=== PATIENT | female | born 1940 | race Two or more races ===

== ENCOUNTER 2024-04-13 11:59 | Inpatient (IN) | payer MEDICAID, SELFPAY ==
[2024-04-13] VITALS (7 sets, daily range): BP systolic 75–164; BP diastolic 38–71; PULSE 72–89; RESP 17–21; TEMP 36.7–37.2; O2SAT 94–98; BMI 31.1
--- NOTE | 2024-04-13 12:26 | XR_ITS ---
Examination: Abdomen sonogram, Limited Date and time of exam: April 13, 2024 1259 hrs. Indications: Onset right upper abdominal pain today, history pancreatitis Technique: Real-time baig scale transabdominal sonographic images of the upper abdomen obtained. Findings: Absent gallbladder Common bile duct 0.7 cm no stones Pancreatic head prominent 3.6 cm Liver 15.2 cm fatty infiltration lobular contour Normal hepatopedal portal venous flow Patent IVC Impression: Absent gallbladder No common bile duct stones Pancreatic head is prominent, clinical correlation advised Primary hepatocellular disease
--- NOTE | 2024-04-13 12:42 | PD.EDABDPN ---
ED Abdominal Pain RME/HPI General Chief Complaint: Abdominal Pain Stated complaint: RUQ ABD PAIN SINCE THIS MORNING Time seen by provider: 04/13/24 12:17 Arrival date/time: 04/13/24 11:59 RME / HPI RME / HPI narrative: 83-year-old female patient with significant history of diabetes mellitus hypertension, was brought in by family for evaluation regarding upper abdominal pain. Onset of symptoms since early this morning as upper abdominal pain, associated with dizziness, nausea but no vomiting. Patient denies any fever denies any diarrhea or constipation. Severity of symptoms moderate. In the triage patient was noted to be hypotensive, systolic blood pressure in the mid 80s. No other complaints noted. Related Data Home Medications ?Medication ?Instructions ?Recorded ?Confirmed metformin 500 mg tablet 500 mg PO BID 08/08/17 10/09/23 atorvastatin 10 mg tablet 10 mg PO QPM 11/10/20 10/09/23 metoprolol succinate 25 mg 25 mg PO BID 06/13/23 10/09/23 tablet,extended release 24 hr apixaban 5 mg tablet (Eliquis) 5 mg PO BID 06/20/23 10/09/23 Previous Rx's ?Medication ?Instructions ?Recorded cephalexin 500 mg capsule 500 mg PO QID #56 caps 10/13/23 Allergies Allergy/AdvReac Type Severity Reaction Status Date / Time No Known Allergies Allergy Verified 04/13/24 12:10 Review of Systems Review of Systems Narrative Review of Systems: Review of system reviewed and within normal limits except mentioned in HPI ED Exam Narrative Physical exam: VITAL SIGNS: Reviewed. GENERAL APPEARANCE: Alert and interactive, follows commands, no acute distress, HEAD AND FACE: Non-traumatic. ENT: PERRL, pink conjunctivitis, eyelid no trauma, Mucous membrane moist. NECK: Supple, nontender, no nuchal rigidity. CHEST: No tenderness, no crepitus, no paradoxical movement, no retractions. LUNGS: Clear, well ventilated, symmetric, no rales, no wheezing, no ronchi, no stridor, good breath sounds bilaterally. HEART: Regular rate, regular rhythm, no murmur, no gallops. ABDOMEN: Soft, positive bowel sounds, nondistended, no guarding, epigastric tenderness, no rebound, no masses, RECTAL: Deferred. GENITAL: Deferred. NEUROLOGICAL: Gross motor function intact sensory function intact, Appropriate for age. MUSCULOSKELETAL: low back nontender, full range of motion. EXTREMITIES: Nontender, full range of motion. SKIN: Color pink, dry, no rash, no lacerations, no abrasions, no contusions. LYMPHATICS: Deferred. Course Quality Measures none Orders Category Date Time Status CT Screening NOW Care 04/13/24 14:24 Active Supervisor Electronics Testing NOW Care 04/13/24 12:26 Active EKG (ED ONLY) *Do not use* NOW Care 04/13/24 12:[address] abdomen pelvis w con Stat Exams 04/13/24 14:23 Completed EKG (ED Only) Stat Exams 04/13/24 12:26 Ordered US gall bladder Stat Exams 04/13/24 12:26 Completed Blood Culture (Lab) Stat Lab 04/13/24 12:47 Received CBC Stat Lab 04/13/24 12:47 Completed Comprehensive Metabolic Panel Stat Lab 04/13/24 12:47 Completed Lactic Acid [Lactate (Lactic Acid)] Stat Lab 04/13/24 12:47 Completed Lactic Acid, 3 HR Stat Lab 04/13/24 16:21 Received Lipase Stat Lab 04/13/24 12:47 Completed Lipid Panel Stat Lab 04/13/24 12:47 Completed Procalcitonin Stat Lab 04/13/24 12:47 Completed Troponin I Stat Lab 04/13/24 12:47 Completed UA, C/S IF [Urinalysis, C/S if Indicated] Stat Lab 04/13/24 13:27 Completed Famotidine Inj [Pepcid Inj] Med 04/13/24 12:41 Discontinued 20 mg IVP X1 ONE Morphine Inj Med 04/13/24 14:55 Discontinued 4 mg IVP X1 ONE Morphine Inj [Morphine Sulf Inj] Med 04/13/24 14:27 Discontinued 4 mg IVP X1 ONE Ondansetron Inj [Zofran Inj] Med 04/13/24 12:41 Discontinued 4 mg IV X1 ONE Ondansetron Inj [Zofran Inj] Med 04/13/24 14:26 Discontinued 4 mg IV X1 ONE Sodium Chloride 0.9% 1000 ml [Ns] 1,000 ml Med 04/13/24 12:27 Discontinued IV 500 mls/hr Vital Signs Vital signs: Vital Signs Temperature 98.9 F 04/13/24 12:23 Pulse Rate 72 04/13/24 12:23 Respiratory Rate 17 04/13/24 12:23 Blood Pressure 87/50 L 04/13/24 12:23 Pulse Oximetry (%) 96 04/13/24 12:23 Oxygen Delivery Method Room Air 04/13/24 12:23 Abdominal Pain MDM MDM Narrative [facility] Narrative:: 83-year-old female patient with significant history of diabetes mellitus hypertension, was brought in by family for evaluation regarding upper abdominal pain. Onset of symptoms since early this morning as upper abdominal pain, associated with dizziness, nausea but no vomiting. Patient denies any fever denies any diarrhea or constipation. Severity of symptoms moderate. In the triage patient was noted to be hypotensive, systolic blood pressure in the mid 80s. No other complaints noted. Lipase was noted to be more than 3500, slight leukocytosis was noted also LFTs are slightly elevated. Total lipid was normal. CT scan of the abdomen and pelvis showed acute pancreatitis, no pseudocyst noted. Received IV fluids, morphine and Zofran. Was also given Pepcid. Patient is to be admitted for further management. Patient data External records reviewed:: None Clinical information provided by:: patient and family Social determinants that could affect healthcare access:: none Patient has the following chronic illnesses:: Diabetes hypertension How is presenting disease/condition affected by chronic disease/condition?: uneffected by Evaluation data The following diagnostics were reviewed and interpreted by me:: lab results, radiology exam(s) and EKG tracing(s) Lab and/or radiology exams considered but not ordered:: None Interpretation Summary: EKG as interpreted by me showed sinus rhythm, ventricular rate of 67 bpm, per interval 148 MS, no ST segment elevation depression noted. CT scan of the abdomen showed acute pancreatitis no pseudocyst noted, lipase was noted to be above 3500. Slight elevated LFTs total bili is normal. Lipid panel unremarkable. Medications / Prescriptions Medications or Prescriptions considered but not ordered:: none Medication administrations:: Medication Administration History Discontinued Medications Famotidine (Famotidine Inj 10 Mg/Ml Vial 2 Ml) 20 mg IVP X1 ONE Stop: 04/13/24 12:42 Last Admin: 04/13/24 13:15 Dose: 20 mg Documented By: ARF Sodium Chloride (Ns) 1,000 mls @ 500 mls/hr IV .Q2H ONE Stop: 04/13/24 14:26 Morphine Sulfate (Morphine Sulf Inj 4 Mg/Ml Vial) 4 mg IVP X1 ONE Stop: 04/13/24 14:28 Last Admin: 04/13/24 14:55 Dose: Not Given Documented By: LF Non-Admin Reason: Duplicate Medication on eMAR Morphine Sulfate (Morphine Sulf Inj 10 Mg/Ml Vial) 4 mg IVP X1 ONE Stop: 04/13/24 14:56 Last Admin: 04/13/24 15:01 Dose: 4 mg Documented By: LF Ondansetron HCl (Ondansetron Inj 2 Mg/Ml Inj 2 Ml) 4 mg IV X1 ONE; Protocol Stop: 04/13/24 12:42 Last Admin: 04/13/24 13:15 Dose: 4 mg Documented By: ARF Ondansetron HCl (Ondansetron Inj 2 Mg/Ml Inj 2 Ml) 4 mg IV X1 ONE; Protocol Stop: 04/13/24 14:27 Zofran, morphine, IV fluids hydration and Pepcid Consultations Consultation(s) initiated? (list below): No Diagnosis Differential diagnosis abdominal pain: abdominal pain and pancreatitis Most likely diagnosis given after review of the tests above:: Acute pancreatitis Admission Indicated Admission indicated?: indicated Explain why admission is indicated or not indicated:: Patient is to be admitted for further management. Admission Request Was there a request for admission?: Yes Admission Attestation Admission request attestation: Discussed case with [[facility] resident] from Hospitalist service regarding admission. Discussed patients ED course, exam findings, labs, and radiology results. The Hospitalist [agrees] to accept the patient for admission. Disposition Plan Disposition Plan: Admit Discharge Plan Plan Patient Disposition: Admit Acute Care w/in Hospital Prescriptions/Referrals Prescriptions/Med Rec: No Action metoprolol succinate 25 mg tablet extended release 24 hr 25 mg PO BID metformin 500 mg Tablet 500 mg PO BID atorvastatin 10 mg Tablet 10 mg PO QPM cephalexin 500 mg capsule 500 mg PO QID Qty: 56 0RF Eliquis 5 mg Tablet 5 mg PO BID Referrals: Juan Banegas MD [Primary Care Provider] - In 1 week Problem List Clinical Impression: Acute pancreatitis Patient/Caregiver Discharge Instructions Print Language: Kiswahili Stand Alone Forms: [facility] Award Info., Patient Portal Info Letter
[2024-04-13] MEDS: SODIUM CHLORIDE 0.9% 1000 ML 1,000 ML 500 ML IV (12:44)
[2024-04-13 13:13] LABS: Lactate (Lactic Acid) 3.7 mMol/L (0.4-2.0)
[2024-04-13] MEDS: FAMOTIDINE INJ 10 MG/ML VIAL 2 ML 20 MG IVP (13:15)
[2024-04-13] MEDS: ONDANSETRON INJ 2 MG/ML INJ 2 ML 4 MG IV (13:15)
[2024-04-13 13:28] LABS: Basophils % (Auto) 0 % (0-2.5); Eosinophils % (Auto) 0 % (0-10); Hematocrit 39.3 % (36.0-46.0); Hemoglobin 13.7 g/dL (12.0-16.0); Immature Granulocytes % (Auto) 0 % (0-0); Immature Granulocytes Auto 0.06 Thou/mm3 (0.00-0.00); Lymphocytes # (Auto) 1.6 Thou/mm3 (1.0-4.8); Lymphocytes % (Auto) 12 % (10-50); Mean Corpuscular HGB Conc 34.9 g/dl (31.0-37.0); Mean Corpuscular Hemoglobin 31.2 pg (25.0-35.0); Mean Corpuscular Volume 90 fL (80-100); Monocytes # (Auto) 0.7 Thou/mm3 (0.0-0.8); Monocytes % (Auto) 5 % (0-12); Neutrophils # (Auto) 11.6 Thou/mm3 (1.8-7.7); Neutrophils % (Auto) 82 % (37-80); Nucleated Red Blood Cell % 0 /100 WBC (0); Platelet Count 279 Thou/mm3 (140-440); RDW Standard Deviation 43.9 fL (36.4-46.3); Red Blood Count 4.39 Miln/mm3 (4.00-5.20); White Blood Count 14.1 Thou/mm3 (3.6-11.0)
[2024-04-13 14:02] LABS: Collection Type, Urine Clean Catch
[2024-04-13 14:08] LABS: Bilirubin,Urine Negative (Negative); Blood,Urine Negative (Negative); Clarity,Urine Clear (Clear/Hazy); Color,Urine Lt-Yellow (Lt Yel-Yel); Culture Indicated,Urine Not Indicated; Glucose, Urine Negative (Negative); Ketones,Urine Negative (Negative); Leukocyte Esterase,Urine Negative (Negative); Nitrite,Urine Negative (Negative); Protein,Urine Negative (Neg - Trace); RBC,Urine 2 /hpf (0-3); Squamous Epithelial Cell,Urine 2 /hpf (0-5); Urobilinogen,Urine Negative mg/dL (0.0-1.0); WBC,Urine 2 /hpf (0-5)
[2024-04-13 14:13] LABS: Potassium 3.9 mMol/L (3.4-5.1); Sodium 137 mMol/L (136-145)
[2024-04-13 14:14] LABS: Anion Gap 11 (7-16); Blood Urea Nitrogen 17 mg/dL (9-23); Carbon Dioxide 23.8 mMol/L (20.0-31.0); Chloride 102 mMol/L (98-107)
[2024-04-13 14:15] LABS: Alanine Aminotransferase 129 U/L (10-49); Aspartate Amino Transferase 312 U/L (0-34); BUN/Creatinine Ratio 24 Ratio (12-20); Bilirubin,Total 1.1 mg/dL (0.3-1.2); Calcium 9.5 mg/dL (8.3-10.6); Creatinine (Component) 0.7 mg/dL (0.6-1.3); Estimated Creatinine Clearance 55.4 mL/min (>60); Glucose 172 mg/dL (74-106); Osmolality,Calculated 279 (275-295); eGFR > 60 See Note
[2024-04-13 14:16] LABS: Albumin, Serum 4.2 gm/dL (3.4-4.8); Albumin/Globulin Ratio 1.8 (1.2-2.2); Alkaline Phosphatase 168 U/L (46-116); Calcium (Corrected) 9.5 mg/dL (8.5-10.1); Globulin 2.3 gm/dL (2.3-3.5); Lipase > 3500 U/L (12-53); Procalcitonin 0.11 ng/ml (0.0-0.49); Total Protein 6.5 gm/dL (5.7-8.2); Troponin I < 0.020 ng/mL (0.0-0.045)
--- NOTE | 2024-04-13 14:23 | XR_ITS ---
Examination: CT abdomen with intravenous contrast CT pelvis with intravenous contrast 2-D coronal reconstructions 2-D sagittal reconstructions Date and time of exam:April 13, 2024 1517 hrs. Indications: Right upper abdominal pain with nausea today, diagnosis acute pancreatitis, acute pancreatitis on CT study October 11, 2023. CTDI: vol (mGy) 10.2 DLP: (mGycm) 547 Technique: Multiple axial sections of the abdomen and pelvis have been obtained. 64 slice high-resolution scanner used. 3 mm axial sections have been obtained, post intravenous injection 60 cc [id number] 2-D sagittal, coronal reconstructions obtained. Low dose protocols were performed. One or more of the following dose reduction techniques were used; automated exposure control, adjustment of the mA and/or KV according to patient size, use of iterative reconstruction technique. Findings: Mild enlargement cardiac contour Fatty infiltration throughout the liver Common bile duct 12 mm Acute pancreatitis No definite pseudocyst 5.7 cm left renal cyst Aorta normal size Distended urinary bladder No bowel obstruction No pelvic mass Moderate osteopenia Impression: Acute pancreatitis, no pseudocyst No common bile duct stones noted
[2024-04-13] MEDS: MORPHINE SULF INJ 10 MG/ML VIAL 4 MG IVP (15:01)
[2024-04-13 15:33] LABS: Cardiac Risk Estimate 3.8 RATIO (3.7-5.6); Cholesterol 180 mg/dL (132-200); HDL Cholesterol 47 mg/dL (40-60); LDL Cholesterol,Calculated 101 mg/dL (0-130); Triglycerides 162 mg/dL (30-150)
[2024-04-13 16:08] LABS: Reflex Lactate? Y
[2024-04-13 16:26] LABS: Lactic Acid, 3 HR 2.4 mMol/L (0.4-2.0)
--- NOTE | 2024-04-13 18:25 | ESHP_ITS ---
<Statement entered by Arlen Ochoa MD - 04/14/24 07:31> Patient is a 83 y.o female with PMHx significant for non-insulin dependent type 2 DM, HTN, HLD, A-fib on Eliquis, pancreatitis with pseudocyst presented to the with abdominal pain and admitted for further management of pancreatitis. Patient denies any hx of EtoH use, and labs show low TG level. Patient will be started on IVF at 100cc/hr NS, pain regimen, and NPO. Will advance diet after n/v and pain improve. Will resume PO meds tomorrow. F/u A1c in AM. I discussed with and supervised the public health internship physician who took care of this patient. I personally saw and examined the patient and discussed the assessment and plan with the entire medicine team, including my attending , I agree with most of the assessment and plan as documented below Arlen Ochoa M.D. PGY-2 Documentation for date of: 04/13/24 HPI History of Present Illness Chief complaint: Abdominal pain History of present illness: 83-year-old female with past medical history of hwe-wopjbkw-uzabpnfvz type 2 diabetes, hypertension, hyperlipidemia, A-fib on Eliquis pancreatitis with pseudocyst presents to the ED on 04/13 with abdominal pain which started this morning. Patient states that the pain is mostly in the epigastric area and does not really radiate anywhere else. Patient states that she has some nausea but has not had any vomiting and denies any other concerning symptoms such as hematemesis, melena, hematochezia. Patient does state that she does get dizzy from time to time especially when she moves her head; however, she denies having any chest pain/tightness, orthopnea, paroxysmal nocturnal dyspnea, lower extremity edema or any palpitations. Patient has been admitted in the past for pancreatitis and treated with IV fluids and pain management. Patient apparently follows a risk and insurance consultant in [place], but does not remember the risk and insurance consultant name and she is only been to 1 visit in the past. Medical history: As stated above Surgical history: 1 and left hip replacement Medications: Metformin 700 mg p.o. daily, Toprol tartrate 25 mg p.o. twice daily, Eliquis 5 mg p.o. twice daily Allergies: NKDA Family history: noncontributable Social history: Patient lives with her in [place], originally from [facility], denies smoking, alcohol use or any illicit drug use In the ED, patient presented hypotensive (87/50), pulse 72, respiratory rate 17, afebrile satting 96 on room air. Pertinent lab findings include WBC of 14.1, lactic acid 3.7, elevated liver enzymes (AST 312, ALT 129, alk phos 168), troponin was unremarkable, triglycerides 162, cholesterol 180, LDL 101, HDL 47, lipase was greater then 3500 and Pro-Dean was 0.11. Urinalysis was negative for any signs of infection. Ultrasound of the gallbladder showed an absent gallbladder, no common bile duct stones, a prominent pancreatic head and primary hepatocellular disease. CT abdomen pelvis showed acute pancreatitis with no pseudocyst, a common bile duct measuring 12 mm and a 5.7 cm left renal cyst Patient will be admitted for acute pancreatitis of unspecified etiology; patient has history of pancreatitis in the past which is not attributable to gallstones, triglyceride levels or alcohol use Exam Vital Signs Temp Pulse Resp BP Pulse Ox O2 Del Method 98.2 F 89 19 121/59 L 94 L Room Air 04/13/24 18:00 04/13/24 18:00 04/13/24 18:00 04/13/24 18:00 04/13/24 18:00 04/13/24 18:00 Narrative Exam Physical Exam: GENERAL: Awake, answering questions appropriately, appears stated age HEENT: NC/AT. Moist mucosa. PERRLA/EOMI. CARDIO: Heart RRR, no obvious murmurs, no JVD. PULM: No coughing or visible SOB. Lungs CTA B/L. GI: Abdomen soft, tenderness to palpation in epigastric and right upper quadrant areas, no rebound tenderness, no rigidity, borborygmi apparent borborygmi apparent SKIN/MSK/EXT: No wounds/discoloration/rashes/edema/amputations noted. +Pedal pulses present B/L. NEURO: Oriented x3, director utilization management strength 5/5, Moves extremities x4. Results: Labs 04/13/24 12:47 04/13/24 12:47 Labs: Short CBC 04/13/24 Range/Units 12:47 WBC 14.1 H (3.6-11.0) Thou/mm3 Hgb 13.7 (12.0-16.0) g/dL Hct 39.3 (36.0-46.0) % Plt Count 279 (140-440) Thou/mm3 BMP 04/13/24 12:47 Sodium 137 Potassium 3.9 Chloride 102 Carbon Dioxide 23.8 BUN 17 Creatinine 0.7 Glucose 172 H Calcium 9.5 Cardiac Enzymes 04/13/24 Range/Units 12:47 Troponin I < 0.020 (0.0-0.045) ng/mL Liver Function 04/13/24 Range/Units 12:47 Total Bilirubin 1.1 (0.3-1.2) mg/dL AST 312 H (0-34) U/L ALT 129 H (10-49) U/L Alkaline Phosphatase 168 H (46-116) U/L Albumin 4.2 (3.4-4.8) gm/dL Urine 04/13/24 Range/Units 13:27 Urine Color Lt-Yellow (Lt Yel-Yel) Urine Clarity Clear (Clear/Hazy) Urine pH 7.0 (5.0-7.0) Ur Specific [place] 1.010 (1.001-1.035) Urine Protein Negative (Neg - Trace) Urine Glucose (UA) Negative (Negative) Quality Measures Quality Measures none Advance care planning discussed with:: patient Medications Home Medications and Allergies Home Medications ?Medication ?Instructions ?Recorded ?Confirmed ?Type metformin 500 mg tablet 500 mg PO BID 08/08/17 10/09/23 History atorvastatin 10 mg tablet 10 mg PO QPM 11/10/20 10/09/23 History metoprolol succinate 25 mg 25 mg PO BID 06/13/23 10/09/23 History tablet,extended release 24 hr apixaban 5 mg tablet (Eliquis) 5 mg PO BID 06/20/23 10/09/23 History Allergies Allergy/AdvReac Type Severity Reaction Status Date / Time No Known Allergies Allergy Verified 04/13/24 12:10 Visit Medications Acetaminophen (Acetaminophen 325 Mg Tablet) 650 mg PO Q6H PRN PRN Reason: Pain 1-3 and/or Fever >100.1 Stop: 05/13/24 18:15 Hydrocodone Bitart/Acetaminophen (Hydrocodone/Apap 10/325 Tab) 1 tab PO Q4H PRN PRN Reason: Pain Scale 4-6 Stop: 04/18/24 18:15 Dextrose (Dextrose 50%-Water Inj 50 Ml Syringe) 25 ml IV Q15MIN PRN PRN Reason: BG 50-70 responsive npo pt Stop: 05/13/24 18:22 Dextrose (Dextrose 50%-Water Inj 50 Ml Syringe) 50 ml IV Q15MIN PRN PRN Reason: BG <50 OR BG <70 & pt unresponsive Stop: 05/13/24 18:22 Glucagon (Glucagon Inj 1 Mg Vial) 1 mg IM Q15MIN PRN PRN Reason: BG <70, and no IV access Heparin Sodium (Porcine) (Heparin Sod Inj 5000 Unit/Ml Vial) 5,000 unit SC Q12HR [facility] Stop: 04/27/24 20:59 Sodium Chloride (Ns) 1,000 mls @ 100 mls/hr IV .Q10H [facility] Stop: 04/14/24 04:24 Insulin Human Lispro (Insulin Lispro (Admelog) 1 Unit/0.01 Ml Unit) 0 unit SC Q6HR [facility]; Protocol Stop: 05/13/24 18:29 Morphine Sulfate (Morphine Sulf Inj 10 Mg/Ml Vial) 1 mg IVP Q4HR PRN PRN Reason: Pain Scale 7-10 Stop: 04/18/24 18:15 Ondansetron HCl (Ondansetron Inj 2 Mg/Ml Inj 2 Ml) 4 mg IV Q6H PRN; Protocol PRN Reason: NAUSEA OR VOMITING Stop: 05/13/24 18:15 Sennosides (Senna Tablet) 1 tab PO QDAY [facility]; Protocol Stop: 05/14/24 08:59 Discontinued Medications Famotidine (Famotidine Inj 10 Mg/Ml Vial 2 Ml) 20 mg IVP X1 ONE Stop: 04/13/24 12:42 Last Admin: 04/13/24 13:15 Dose: 20 mg Sodium Chloride (Ns) 1,000 mls @ 500 mls/hr IV .Q2H ONE Stop: 04/13/24 14:26 Morphine Sulfate (Morphine Sulf Inj 4 Mg/Ml Vial) 4 mg IVP X1 ONE Stop: 04/13/24 14:28 Last Admin: 04/13/24 14:55 Dose: Not Given Morphine Sulfate (Morphine Sulf Inj 10 Mg/Ml Vial) 4 mg IVP X1 ONE Stop: 04/13/24 14:56 Last Admin: 04/13/24 15:01 Dose: 4 mg Morphine Sulfate (Morphine Sulf Inj 4 Mg/Ml Vial) 1 mg IVP Q4HR PRN PRN Reason: Pain Scale 7-10 Stop: 04/18/24 18:15 Ondansetron HCl (Ondansetron Inj 2 Mg/Ml Inj 2 Ml) 4 mg IV X1 ONE; Protocol Stop: 04/13/24 12:42 Last Admin: 04/13/24 13:15 Dose: 4 mg Ondansetron HCl (Ondansetron Inj 2 Mg/Ml Inj 2 Ml) 4 mg IV X1 ONE; Protocol Stop: 04/13/24 14:27 Assessment & Plan Plan 83-year-old female with past medical history of uxx-fqfcsyg-cjrnerexs type 2 diabetes, hypertension, hyperlipidemia, A-fib on Eliquis pancreatitis with pseudocyst presents with abdominal pain will be admitted for acute pancreatitis of unspecified etiology; patient has history of pancreatitis in the past which is not attributable to gallstones, triglyceride levels or alcohol use #Acute pancreatitis #Elevated liver enzymes #Lactic acidosis, improving Patient has history of pancreatitis in the past with a pseudocyst Presents today with acute abdominal pain with Lipase >3500, characteristic pain and CT findings Plan: 100cc/hr IV NS Multimodal analgesia (tylenol, norco 5 and morphine 1mg q4hr) depending on pain scale NPO for now Will advance as tolerated IV Zofran as needed every 4 hours for nausea #A-fib Patient apparently on Eliquis 5mg po BID for AFIB and/or clot in leg? Patient follows a risk and insurance consultant in [place]; only one visit in the past Plan: Will hold Eliquis for now as patient is NPO; plan is to resume tomorrow (04/14) morning Will do heparin subq for DVT prophylaxis EKG ordered #Hypertension #Hypotensive, resolved Patient on home metoprolol tartrate 25mg po bid Plan: Will hold antihypertensives as patient's BP on softer side #Abx-imudgke-uowdgydlz type 2 diabetes Patient on home metformin 750 mg p.o. daily Plan: Sliding scale insulin Follow-up with AM A1c #Hyperlipidemia Patient presents with triglycerides 162, cholesterol 180, LDL 101, HDL 47 LDL above target of <70; however, patient is 83 and past the age limit for ASCVD risk score Plan: Will consider adding statin on discharge Hospital Management: Lines: PIV Diet: N.p.o. Bowel: Senna as needed GI prophylaxis: Protonix DVT prophylaxis: Heparin subcu Dispo: IV fluid and pain management for acute pancreatitis Code: DNR Patient seen and examined with attending Dr. Leos and senior resident Dr. Don Sanchez, PGY-1 Attending Provider Attestation/Addendum I have examined the patient, reviewed labs and imaging findings, discussed the case with the resident(s), and reviewed entered orders. I agree with the plan of care as outlined in this note, with these additional summaries/recommendations: # Acute on chronic pancreatitis Meets 3 out of 3 diagnostic criteria Unknown etiology possibly secondary to alcohol versus medications versus idiopathic Moderately severe acute pancreatitis BISAP Score: 2 points Raj-Imrie pancreatitis score: 2 points Low risk for severe pancreatitis Given patient's age we will proceed with lower dose fluids for acute pancreatitis. Status post 1 L NS in ED. Start NS 100 cc x 1 L and will reevaluate As needed morphine and Zofran Oral feeding can be initiated early as tolerated Prophylactic antibiotics are not recommended at this time unless patient develops fevers or evidence of abscess/necrosis # Transaminitis Total bilirubin within normal limits, AST 312, ALT 129, ALP 168 Likely related to severe pancreatitis Avoid hepatotoxic agents and hepatically dose medications Repeat liver function test in AM # Lactic acidosis Likely type B lactic acidosis from decreased oral intake and transaminitis Lactic acid 3.7 --> 2.4 Continue maintenance fluids # Paroxysmal atrial fibrillation # Primary hypertension Rate currently controlled Blood pressure is soft and we will hold metoprolol for now Continue home Eliquis 5 mg p.o. twice daily # Diabetes mellitus type 2 Last A1c on file 7.1%. The Repeat A1c ordered. Continue insulin sliding scale with Accu-Cheks Target blood sugar of 140-[address] Leos
[2024-04-13] MEDS: SODIUM CHLORIDE 0.9% 1000 ML 1,000 ML 100 ML IV (18:58)
[2024-04-13] MEDS: HEPARIN SOD INJ 5000 UNIT/ML VIAL SC (21:02)
[2024-04-14] VITALS (10 sets, daily range): BP systolic 118–154; BP diastolic 60–94; PULSE 73–90; RESP 16–22; TEMP 36.4–37.4; O2SAT 94–99; BMI 31.1
[2024-04-14 05:47] LABS: Basophils % (Auto) 0 % (0-2.5); Eosinophils # (Auto) 0.1 Thou/mm3 (0.0-0.5); Eosinophils % (Auto) 1 % (0-10); Hematocrit 38.3 % (36.0-46.0); Immature Granulocytes % (Auto) 0 % (0-0); Immature Granulocytes Auto 0.05 Thou/mm3 (0.00-0.00); Lymphocytes # (Auto) 1.1 Thou/mm3 (1.0-4.8); Lymphocytes % (Auto) 9 % (10-50); Mean Corpuscular HGB Conc 33.9 g/dl (31.0-37.0); Mean Corpuscular Hemoglobin 30.2 pg (25.0-35.0); Mean Corpuscular Volume 89 fL (80-100); Monocytes # (Auto) 0.6 Thou/mm3 (0.0-0.8); Monocytes % (Auto) 5 % (0-12); Neutrophils # (Auto) 10.5 Thou/mm3 (1.8-7.7); Neutrophils % (Auto) 85 % (37-80); Nucleated Red Blood Cell % 0 /100 WBC (0); Platelet Count 266 Thou/mm3 (140-440); RDW Standard Deviation 45.1 fL (36.4-46.3); Red Blood Count 4.31 Miln/mm3 (4.00-5.20); White Blood Count 12.4 Thou/mm3 (3.6-11.0)
[2024-04-14 06:22] LABS: Alanine Aminotransferase 317 U/L (10-49); Albumin/Globulin Ratio 1.7 (1.2-2.2); Alkaline Phosphatase 205 U/L (46-116); Anion Gap 10 (7-16); Aspartate Amino Transferase 396 U/L (0-34); BUN/Creatinine Ratio 15 Ratio (12-20); Bilirubin,Total 2.5 mg/dL (0.3-1.2); Blood Urea Nitrogen 9 mg/dL (9-23); Calcium 8.9 mg/dL (8.3-10.6); Calcium (Corrected) 8.9 mg/dL (8.5-10.1); Carbon Dioxide 25.9 mMol/L (20.0-31.0); Chloride 105 mMol/L (98-107); Creatinine (Component) 0.6 mg/dL (0.6-1.3); Estimated Creatinine Clearance 64.6 mL/min (>60); Globulin 2.4 gm/dL (2.3-3.5); Glucose 123 mg/dL (74-106); Osmolality,Calculated 280 (275-295); Phosphorous 3.8 mg/dL (2.4-5.1); Potassium 3.7 mMol/L (3.4-5.1); Sodium 141 mMol/L (136-145); Total Protein 6.4 gm/dL (5.7-8.2); eGFR > 60 See Note
[2024-04-14 06:32] LABS: INR 1.1 (0.9-1.3); Prothrombin Time 12.1 Seconds (9.0-12.2)
[2024-04-14 06:47] LABS: Glucose Estimated Average 143 mg/dL (80-131); Hemoglobin A1C 6.6 % Hgb (4.8-6.0)
--- NOTE | 2024-04-14 07:32 | PC.NURSE ---
Pt. here from home to room 16, pt. states she was having abdominal pain and nausea, vomiting X 1 day. Pt. denies any pain, nausea or vomiting at this time. Pt.'s daughter at bedside. Daughter states pt. has had pancreatitis twice before. Pt. walks with a cane and lives at home with her .
[2024-04-14] MEDS: HEPARIN SOD INJ 5000 UNIT/ML VIAL SC ×2 (10:28→20:07)
--- NOTE | 2024-04-14 12:11 | ESPR_ITS ---
<Statement entered by Arlen Ochoa MD - 04/14/24 13:39> Patient seen and examined at bedside. No acute overnight events. Patient received a total of 1L, and will give another liter of NS at 100cc/hr. D/t elevated LFTs during AM labs, will order MRCP and Cocci panel. Patient's pain on PE is still present, but hasn't been asking for pain medications. Will try CLD today, and see how her pain is tolerated. Patient raised a concern for Metformin induced pancreatitis d/t recurrence of symptoms, however, reassured that medication adverse effect is very rare, but will discontinue at discharge. Patient's A1c is currently 6.6%. I discussed with and supervised the research intern physician who took care of this patient. I personally saw and examined the patient and discussed the assessment and plan with the entire medicine team, including my attending , I agree with most of the assessment and plan as documented below Arlen Ochoa M.D. PGY-2 Documentation for date of: 04/14/24 Subjective Subjective Interval history: 04/14/2024: No acute overnight events to report. Patient seen and examined in hospital bed reporting some improvement in her presenting symptoms; however, she still has some pain when palpating right upper quadrant and epigastric areas. Patient still remains n.p.o. but we will advance diet if she starts becoming hungry. Patient had 1 L of normal saline overnight which ended around 4 AM running at around 100 cc/h; will add an additional 1 L bag at 100 cc an hour. Patient's liver enzymes have increased along with T. bili which went up from 1.1-2.5; ordered MRCP and cocci serologies. Patient is wondering if metformin is the cause for her recurrent pancreatitis; explained to her that pancreatitis is a very rare adverse effect of metformin but we will consider changing diabetic medications on discharge. Exam Vital Signs Temp Pulse Resp BP Pulse Ox O2 Del Method O2 Flow Rate 99.2 F 80 20 118/94 H 94 L Nasal Cannula 2 04/14/24 09:40 04/14/24 09:40 04/14/24 09:40 04/14/24 09:40 04/14/24 09:40 04/14/24 09:40 04/14/24 09:40 Narrative Exam Physical Exam: GENERAL: Awake, answering questions appropriately, appears stated age HEENT: NC/AT. Moist mucosa. PERRLA/EOMI. CARDIO: Heart RRR, no obvious murmurs, no JVD. PULM: No coughing or visible SOB. Lungs CTA B/L. GI: Abdomen soft, tenderness to palpation in epigastric and right upper quadrant areas, no rebound tenderness, no rigidity, borborygmi apparent borborygmi apparent SKIN/MSK/EXT: No wounds/discoloration/rashes/edema/amputations noted. +Pedal pulses present B/L. NEURO: Oriented x3, powder guard strength 5/5, Moves extremities x4. Objective Labs 04/15/24 04:32 04/15/24 04:32 Labs: Laboratory Results - last 24 hr 04/13/24 04/13/24 04/13/24 12:47 13:27 16:21 WBC 14.1 H RBC 4.39 Hgb 13.7 Hct 39.3 MCV 90 MCH 31.2 MCHC 34.9 RDW Std Deviation 43.9 Plt Count 279 Neut % (Auto) 82 H Lymph % (Auto) 12 [place] % (Auto) 5 Eos % (Auto) 0 Baso % (Auto) 0 Neut # (Auto) 11.6 H Lymph # (Auto) 1.6 [place] # (Auto) 0.7 Eos # (Auto) 0.0 Baso # (Auto) 0.0 Immature Gran # (Auto) 0.06 H Absolute Nucleated RBC 0.00 Immature Gran % 0 Nucleated RBC % 0 PT INR Sodium 137 Potassium 3.9 Chloride 102 Carbon Dioxide 23.8 Anion Gap 11 BUN 17 Creatinine 0.7 Estim Creat Clear Calc 55.4 L eGFR > 60 BUN/Creatinine Ratio 24 H Glucose [address] Glu mg/dL Hemoglobin A1c Calculated Osmolality 279 Lactic Acid 3.7 H 2.4 H Calcium 9.5 Corrected Calcium 9.5 Phosphorus Magnesium Total Bilirubin 1.1 AST 312 H ALT 129 H Alkaline Phosphatase 168 H Troponin I < 0.020 Total Protein 6.5 Albumin 4.2 Globulin 2.3 Albumin/Globulin Ratio 1.8 Triglycerides 162 H Cholesterol 180 LDL Cholesterol, Calc 101 HDL Cholesterol 47 Cholesterol/HDL Ratio 3.8 Lipase > 3500 H* Procalcitonin 0.11 TSH Ur Collection Type Clean Catch Urine Color Lt-Yellow Urine Clarity Clear Urine pH 7.0 Ur Specific [place] 1.010 Urine Protein Negative Urine Glucose (UA) Negative Urine Ketones Negative Urine Blood Negative Urine Nitrite Negative Urine Bilirubin Negative Urine Urobilinogen (Auto) Negative Ur Leukocyte Esterase Negative Urine RBC 2 Urine WBC 2 Ur Squamous Epith Cells 2 Urine Bacteria None Ur Culture Indicated? Not Indicated 04/14/24 04/14/24 05:00 10:10 WBC 12.4 H RBC 4.31 Hgb 13.0 Hct 38.3 MCV 89 MCH 30.2 MCHC 33.9 RDW Std Deviation 45.1 Plt Count 266 Neut % (Auto) 85 H Lymph % (Auto) 9 L [place] % (Auto) 5 Eos % (Auto) 1 Baso % (Auto) 0 Neut # (Auto) 10.5 H Lymph # (Auto) 1.1 [place] # (Auto) 0.6 Eos # (Auto) 0.1 Baso # (Auto) 0.0 Immature Gran # (Auto) 0.05 H Absolute Nucleated RBC 0.00 Immature Gran % 0 Nucleated RBC % 0 PT 12.1 INR 1.1 Sodium 141 Potassium 3.7 Chloride 105 Carbon Dioxide 25.9 Anion Gap 10 BUN 9 Creatinine 0.6 Estim Creat Clear Calc 64.6 eGFR > 60 BUN/Creatinine Ratio [address] Glu mg/dL 143 H Hemoglobin A1c 6.6 H Calculated Osmolality 280 Lactic Acid 1.0 Calcium 8.9 Corrected Calcium 8.9 Phosphorus 3.8 Magnesium 2.0 Total Bilirubin 2.5 H D AST 396 H ALT 317 H Alkaline Phosphatase 205 H D Troponin I Total Protein 6.4 Albumin 4.0 Globulin 2.4 Albumin/Globulin Ratio 1.7 Triglycerides Cholesterol LDL Cholesterol, Calc HDL Cholesterol Cholesterol/HDL Ratio Lipase Procalcitonin TSH 3.70 Ur Collection Type Urine Color Urine Clarity Urine pH Ur Specific [place] Urine Protein Urine Glucose (UA) Urine Ketones Urine Blood Urine Nitrite Urine Bilirubin Urine Urobilinogen (Auto) Ur Leukocyte Esterase Urine RBC Urine WBC Ur Squamous Epith Cells Urine Bacteria Ur Culture Indicated? Quality Measures Quality Measures none Advance care planning discussed with:: patient Assessment & Plan Assessment Current Active Medications: Generic Name Dose Route Start Last Admin Trade Name Freq PRN Reason Stop Dose Admin Acetaminophen 650 mg 04/13/24 18:16 Acetaminophen 325 Mg Tablet PO 05/13/24 18:15 Q6H PRN Pain 1-3 and/or Fever >100.1 Hydrocodone Bitart/Acetaminophen 1 tab 11/23/24 18:16 Hydrocodone/Apap 10/325 Tab PO 04/18/24 18:15 Q4H PRN Pain Scale 4-6 Dextrose 25 ml 04/13/24 18:23 Dextrose 50%-Water Inj 50 Ml Syringe IV 05/13/24 18:22 Q15MIN PRN BG 50-70 responsive npo pt Dextrose 50 ml 04/13/24 18:23 Dextrose 50%-Water Inj 50 Ml Syringe IV 05/13/24 18:22 Q15MIN PRN BG <50 OR BG <70 & pt unresponsive Glucagon 1 mg 04/13/24 18:23 Glucagon Inj 1 Mg Vial IM Q15MIN PRN BG <70, and no IV access Heparin Sodium (Porcine) 5,000 unit 04/13/24 21:00 04/14/24 10:28 Heparin Sod Inj 5000 Unit/Ml Vial SC 04/27/24 20:59 5,000 unit Q12HR [facility] Administration Sodium Chloride 1,000 mls @ 100 mls/hr 04/14/24 10:39 Ns IV 04/14/24 20:38 .Q10H [facility] Insulin Human Lispro 0 unit 04/13/24 18:30 04/14/24 06:53 Insulin Lispro (Admelog) 1 Unit/0.01 Ml Unit SC 05/13/24 18:29 Not Given Q6HR [facility] Protocol Morphine Sulfate 1 mg 04/13/24 18:23 Morphine Sulf Inj 10 Mg/Ml Vial IVP 04/18/24 18:15 Q4HR PRN Pain Scale 7-10 Ondansetron HCl 4 mg 04/13/24 18:16 Ondansetron Inj 2 Mg/Ml Inj 2 Ml IV 05/13/24 18:15 Q6H PRN NAUSEA OR VOMITING Protocol Sennosides 1 tab 04/14/24 09:00 04/14/24 10:28 Senna Tablet PO 05/14/24 08:59 Not Given QDAY [facility] Protocol Plan 83-year-old female with past medical history of znt-xgvddsk-ptljcyepu type 2 diabetes, hypertension, hyperlipidemia, A-fib on Eliquis pancreatitis with pseudocyst presents with abdominal pain will be admitted for acute pancreatitis of unspecified etiology; patient has history of pancreatitis in the past which is not attributable to gallstones, triglyceride levels or alcohol use #Acute pancreatitis #Elevated liver enzymes #Lactic acidosis, improving Patient has history of pancreatitis in the past with a pseudocyst Presents today with acute abdominal pain with Lipase >3500, characteristic pain and CT findings Patient has received 1 L IV normal saline; plan is to add an additional 1 L Plan: MRCP ordered Cocci serologies ordered 100cc/hr IV NS for an additional bag Multimodal analgesia (tylenol, norco 5 and morphine 1mg q4hr) depending on pain scale NPO for now Will advance as tolerated IV Zofran as needed every 4 hours for nausea #History of A-fib, paroxysmal Patient apparently on Eliquis 5mg po BID for AFIB and/or clot in leg? 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 daily A1c of 6.6 Plan: Sliding scale insulin Will consider changing patient's metformin as it is probably although unlikely the reason for her pancreatitis #Hyperlipidemia Patient presents with triglycerides 162, cholesterol 180, LDL 101, HDL 47 LDL above target of <70; however, patient is 83 and past the age limit for ASCVD risk score Plan: Will consider adding statin on discharge Hospital Management: Lines: PIV Diet: N.p.o; can advance if the patient is becoming hungry Bowel: Senna as needed GI prophylaxis: Protonix DVT prophylaxis: Heparin subcu Dispo: IV fluid and pain management for acute pancreatitis Code: DNR Patient seen and examined with attending Dr. Leos and senior resident Dr. Don Sanchez, PGY-1 Attending Provider Attestation/Addendum I have examined the patient, reviewed labs and imaging findings, discussed the case with the resident(s), and reviewed entered orders. I agree with the plan of care as outlined in this note, with these additional summaries/recommendations: # Acute on chronic pancreatitis Meets 3 out of 3 diagnostic criteria Unknown etiology possibly secondary to alcohol versus medications versus idiopathic Moderately severe acute pancreatitis BISAP Score: 2 points Raj-Imrie pancreatitis score: 2 points Low risk for severe pancreatitis Given patient's age we will proceed with lower dose fluids for acute pancreatitis. Status post 1 L NS in ED. Start NS 100 cc x 1 L and will reevaluate As needed morphine and Zofran Oral feeding can be initiated early as tolerated Prophylactic antibiotics are not recommended at this time unless patient develops fevers or evidence of abscess/necrosis # Transaminitis Total bilirubin within normal limits, AST 312, ALT 129, ALP 168 Likely related to severe pancreatitis Avoid hepatotoxic agents and hepatically dose medications Repeat liver function test in AM # Lactic acidosis Likely type B lactic acidosis from decreased oral intake and transaminitis Lactic acid 3.7 --> 2.4 Continue maintenance fluids # Paroxysmal atrial fibrillation # Primary hypertension Rate currently controlled Blood pressure is soft and we will hold metoprolol for now Continue home Eliquis 5 mg p.o. twice daily # Diabetes mellitus type 2 Last A1c on file 7.1%. The Repeat A1c ordered. Continue insulin sliding scale with Accu-Cheks Target blood sugar of 140-[address] Leos
--- NOTE | 2024-04-14 12:58 | EKG_ITS ---
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
[2024-04-14] MEDS: SODIUM CHLORIDE 0.9% 1000 ML 1,000 ML 100 ML IV (14:54)
[2024-04-14 15:14] LABS: Cocci Serology, IgM Negative (Negative)
[2024-04-15] VITALS (10 sets, daily range): BP systolic 112–157; BP diastolic 64–79; PULSE 67–80; RESP 16–18; TEMP 36.1–37.1; O2SAT 94–97; BMI 31.1
[2024-04-15] MEDS: HYDROcodone/APAP 10/325 TAB PO (02:09)
[2024-04-15 06:09] LABS: Basophils % (Auto) 1 % (0-2.5); Eosinophils # (Auto) 0.3 Thou/mm3 (0.0-0.5); Eosinophils % (Auto) 3 % (0-10); Hematocrit 38.5 % (36.0-46.0); Hemoglobin 12.6 g/dL (12.0-16.0); Immature Granulocytes % (Auto) 1 % (0-0); Immature Granulocytes Auto 0.04 Thou/mm3 (0.00-0.00); Lymphocytes # (Auto) 1.2 Thou/mm3 (1.0-4.8); Lymphocytes % (Auto) 15 % (10-50); Mean Corpuscular HGB Conc 32.7 g/dl (31.0-37.0); Mean Corpuscular Hemoglobin 30.1 pg (25.0-35.0); Mean Corpuscular Volume 92 fL (80-100); Monocytes # (Auto) 0.7 Thou/mm3 (0.0-0.8); Monocytes % (Auto) 8 % (0-12); Neutrophils % (Auto) 73 % (37-80); Nucleated Red Blood Cell % 0 /100 WBC (0); Platelet Count 247 Thou/mm3 (140-440); RDW Standard Deviation 47.5 fL (36.4-46.3); Red Blood Count 4.19 Miln/mm3 (4.00-5.20); White Blood Count 8.3 Thou/mm3 (3.6-11.0)
[2024-04-15 06:37] LABS: Alanine Aminotransferase 208 U/L (10-49); Albumin, Serum 3.9 gm/dL (3.4-4.8); Albumin/Globulin Ratio 1.6 (1.2-2.2); Alkaline Phosphatase 201 U/L (46-116); Anion Gap 8 (7-16); Aspartate Amino Transferase 142 U/L (0-34); BUN/Creatinine Ratio 12 Ratio (12-20); Bilirubin,Total 1.3 mg/dL (0.3-1.2); Blood Urea Nitrogen 6 mg/dL (9-23); Calcium (Corrected) 9.1 mg/dL (8.5-10.1); Carbon Dioxide 25.8 mMol/L (20.0-31.0); Chloride 104 mMol/L (98-107); Creatinine (Component) 0.5 mg/dL (0.6-1.3); Estimated Creatinine Clearance 77.5 mL/min (>60); Globulin 2.4 gm/dL (2.3-3.5); Glucose 108 mg/dL (74-106); Osmolality,Calculated 274 (275-295); Potassium 3.3 mMol/L (3.4-5.1); Sodium 138 mMol/L (136-145); Total Protein 6.3 gm/dL (5.7-8.2); eGFR > 60 See Note
[2024-04-15] MEDS: POTASSIUM CHLORIDE 20 mEq TABCR 40 MEQ PO (09:27)
[2024-04-15] MEDS: HEPARIN SOD INJ 5000 UNIT/ML VIAL SC (09:27)
[2024-04-15] MEDS: METOPROLOL TARTRATE 25 MG TABLET PO ×2 (09:27→20:41)
[2024-04-15] MEDS: SENNA TABLET 1 TAB PO (09:27)
[2024-04-15] MEDS: INSULIN LISPRO (AdmeLOG) 1 UNIT/0.01 ML UNIT SC ×2 (11:26→17:56)
--- NOTE | 2024-04-15 11:49 | ESPR_ITS ---
<Statement entered by Arlen Ochoa MD - 04/15/24 22:48> I discussed with and supervised the corporate strategy intern physician who took care of this patient. I personally saw and examined the patient and discussed the assessment and plan with the entire medicine team, including my attending Dr. Leos, I agree with most of the assessment and plan as documented below Arlen Ochoa M.D. PGY-2 Documentation for date of: 04/15/24 Subjective Subjective Interval history: 04/15/2024: No acute overnight events to report. Patient seen and examined in hospital bed reporting improvement in presenting symptoms. Patient's distention and tenderness of abdomen has subsided from when she first presented. We are advancing the patient's diet to soft, bland, PUD diet as she is tolerating clear liquids without issue. Discontinued IV fluids and we will continue to monitor the patient for any acute changes. Likely discharge on 04/16 if she remains clinically stable. Exam Vital Signs Temp Pulse Resp BP Pulse Ox O2 Del Method O2 Flow Rate 97.9 F 68 16 121/70 97 Nasal Cannula 2 04/15/24 11:16 04/15/24 11:16 04/15/24 11:16 04/15/24 11:16 04/15/24 11:16 04/15/24 11:16 04/15/24 11:16 Narrative Exam Physical Exam: GENERAL: Awake, answering questions appropriately, appears stated age HEENT: NC/AT. Moist mucosa. PERRLA/EOMI. CARDIO: Heart RRR, no obvious murmurs, no JVD. PULM: No coughing or visible SOB. Lungs CTA B/L. GI: Abdomen soft, tenderness to palpation in epigastric and right upper quadrant areas, no rebound tenderness, no rigidity, borborygmi apparent borborygmi apparent SKIN/MSK/EXT: No wounds/discoloration/rashes/edema/amputations noted. +Pedal pulses present B/L. NEURO: Oriented x3, bartender strength 5/5, Moves extremities x4. Objective Labs 04/15/24 04:32 04/15/24 04:32 Labs: Laboratory Results - last 24 hr 04/14/24 04/15/24 10:10 04:32 WBC 8.3 RBC 4.19 Hgb 12.6 Hct 38.5 MCV 92 MCH 30.1 MCHC 32.7 RDW Std Deviation 47.5 H Plt Count 247 Neut % (Auto) 73 Lymph % (Auto) 15 [place] % (Auto) 8 Eos % (Auto) 3 Baso % (Auto) 1 Neut # (Auto) 6.0 Lymph # (Auto) 1.2 [place] # (Auto) 0.7 Eos # (Auto) 0.3 Baso # (Auto) 0.0 Immature Gran # (Auto) 0.04 H Absolute Nucleated RBC 0.00 Immature Gran % 1 H Nucleated RBC % 0 Sodium 138 Potassium 3.3 L Chloride 104 Carbon Dioxide 25.8 Anion Gap 8 BUN 6 L Creatinine 0.5 L Estim Creat Clear Calc 77.5 eGFR > 60 BUN/Creatinine Ratio 12 Glucose 108 H Calculated Osmolality 274 L Calcium 9.0 Corrected Calcium 9.1 Magnesium 2.0 Total Bilirubin 1.3 H D AST 142 H ALT 208 H Alkaline Phosphatase 201 H Total Protein 6.3 Albumin 3.9 Globulin 2.4 Albumin/Globulin Ratio 1.6 Coccidioides IgM Ab Negative Quality Measures Quality Measures none Advance care planning discussed with:: patient Assessment & Plan Assessment Current Active Medications: Generic Name Dose Route Start Last Admin Trade Name Freq PRN Reason Stop Dose Admin Acetaminophen 650 mg 04/13/24 18:16 Acetaminophen 325 Mg Tablet PO 05/13/24 18:15 Q6H PRN Pain 1-3 and/or Fever >100.1 Hydrocodone Bitart/Acetaminophen 1 tab 04/13/24 18:16 04/15/24 02:09 Hydrocodone/Apap 10/325 Tab PO 04/18/24 18:15 1 tab Q4H PRN Administration Pain Scale 4-6 Dextrose 25 ml 04/13/24 18:23 Dextrose 50%-Water Inj 50 Ml Syringe IV 05/13/24 18:22 Q15MIN PRN BG 50-70 responsive npo pt Dextrose 50 ml 04/13/24 18:23 Dextrose 50%-Water Inj 50 Ml Syringe IV 05/13/24 18:22 Q15MIN PRN BG <50 OR BG <70 & pt unresponsive Glucagon 1 mg 04/13/24 18:23 Glucagon Inj 1 Mg Vial IM Q15MIN PRN BG <70, and no IV access Heparin Sodium (Porcine) 5,000 unit 04/13/24 21:00 04/15/24 09:27 Heparin Sod Inj 5000 Unit/Ml Vial SC 04/27/24 20:59 5,000 unit Q12HR [facility] Administration Insulin Human Lispro 0 unit 04/14/24 17:00 04/15/24 11:26 Insulin Lispro (Admelog) 1 Unit/0.01 Ml Unit SC 05/14/24 16:59 1 unit AC [facility]ACEE Administration Protocol Metoprolol Tartrate 25 mg 04/15/24 09:00 04/15/24 09:27 Metoprolol Tartrate 25 Mg Tablet PO 05/15/24 08:59 25 mg BID TRACEE Administration Morphine Sulfate 1 mg 04/13/24 18:23 Morphine Sulf Inj 10 Mg/Ml Vial IVP 04/18/24 18:15 Q4HR PRN Pain Scale 7-10 Ondansetron HCl 4 mg 04/13/24 18:16 Ondansetron Inj 2 Mg/Ml Inj 2 Ml IV 05/13/24 18:15 Q6H PRN NAUSEA OR VOMITING Protocol Sennosides 1 tab 04/14/24 09:00 04/15/24 09:27 Senna Tablet PO 05/14/24 08:59 1 tab QDAY [facility] Administration Protocol Plan 83-year-old female with past medical history of oxi-usuozkq-lnphbeepn type 2 diabetes, hypertension, hyperlipidemia, A-fib on Eliquis pancreatitis with pseudocyst presents with abdominal pain will be admitted for acute pancreatitis of unspecified etiology; patient has history of pancreatitis in the past which is not attributable to gallstones, triglyceride levels or alcohol use #Acute pancreatitis, improving #Elevated liver enzymes, improving #Lactic acidosis, improving Patient has history of pancreatitis in the past with a pseudocyst Presents today with acute abdominal pain with Lipase >3500, characteristic pain and CT findings Patient has received 1 L IV normal saline; plan is to add an additional 1 L Cocci IgM negative Plan: Advancing diet as patient is tolerating it well MRCP ordered IV fluids discontinued Multimodal analgesia (tylenol, norco 5 and morphine 1mg q4hr) depending on pain scale IV Zofran as needed every 4 hours for nausea #History of A-fib, paroxysmal Patient apparently on Eliquis 5mg po BID for AFIB 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 twice daily #Hypertension #Hypotensive, resolved Patient on home metoprolol tartrate 25mg po bid Plan: Will hold antihypertensives as patient's BP on softer side #Ury-ttdqydk-tnbndvawp type 2 diabetes Patient on home metformin 750 mg p.o. daily A1c of 6.6 Plan: Sliding scale insulin Will consider changing patient's metformin as it is probably although unlikely the reason for her pancreatitis #Hyperlipidemia Patient presents with triglycerides 162, cholesterol 180, LDL 101, HDL 47 LDL above target of <70; however, patient is 83 and past the age limit for ASCVD risk score Plan: Will consider adding statin on discharge Hospital Management: Lines: PIV Diet: PUD diet, bland Bowel: Senna as needed GI prophylaxis: Protonix DVT prophylaxis: Eliquis 5 mg p.o. twice daily Dispo: Advancing diet, waiting for BM Code: DNR Patient seen and examined with attending Dr. Leos and senior resident Dr. Don Sanchez, PGY-1 Attending Provider Attestation/Addendum I have examined the patient, reviewed labs and imaging findings, discussed the case with the resident(s), and reviewed entered orders. I agree with the plan of care as outlined in this note, with these additional summaries/recommendations: # Acute on chronic pancreatitis Meets 3 out of 3 diagnostic criteria Unknown etiology possibly secondary to alcohol versus medications versus idiopathic Moderately severe acute pancreatitis BISAP Score: 2 points [place]-Imrie pancreatitis score: 2 points Low risk for severe pancreatitis Given patient's age we will proceed with lower dose fluids for acute pancreatitis. Status post 1 L NS in ED. Start NS 100 cc x 1 L and will reevaluate As needed morphine and Zofran Oral feeding can be initiated early as tolerated Prophylactic antibiotics are not recommended at this time unless patient develops fevers or evidence of abscess/necrosis Plan: Started on low fat diet. DC IV fluids. Pending bowel movement and MRCP to rule out pancreatic mass # Transaminitis Total bilirubin within normal limits, AST 312, ALT 129, ALP 168 Likely related to severe pancreatitis Avoid hepatotoxic agents and hepatically dose medications Repeat liver function test in AM # Lactic acidosis- resolved Likely type B lactic acidosis from decreased oral intake and transaminitis Lactic acid 3.7 --> 2.4 S/P maintenance fluids # Paroxysmal atrial fibrillation # Primary hypertension Rate currently controlled Blood pressure is soft and we will hold metoprolol for now Continue home Eliquis 5 mg p.o. twice daily # Diabetes mellitus type 2 Last A1c on file 7.1%. The Repeat A1c ordered. Continue insulin sliding scale with Accu-Cheks Target blood sugar of 140-[address] Leos
--- NOTE | 2024-04-15 15:09 | PC.SS ---
Rounding note: patient is improving , anticipate d/c in 24-48hrs.
--- NOTE | 2024-04-15 18:53 | PC.PT ---
PT eval only. Patient is I with transfers and ambulation with walker.
[2024-04-15] MEDS: APIXABAN 2.5 MG TABLET 5 MG PO (20:41)
[2024-04-16] VITALS (9 sets, daily range): BP systolic 107–142; BP diastolic 68–81; PULSE 68–88; RESP 16–19; TEMP 36.1–36.8; O2SAT 93–96
--- NOTE | 2024-04-16 | XR_ITS ---
MRI abdomen, without contrast. MRCP Date and time of exam: April 16, 2024 1650 hours Comparison June 16, 2023 INDICATIONS: Elevated liver function tests, history nausea dizziness vomiting beginning April 13, 2024 Technique: Multiple axial and coronal images of the abdomen have been obtained with the Siemens 1.5T MRI scanner. Images obtained included T1 weighted transverse images, T2-weighted transverse images, T2-weighted transverse images fat-suppressed, T2 weighted haste fat suppressed transverse images, T1 weighted images, in and out of phase images, T2-weighted coronal images, breath hold, T2 weighted haze coronal images as well as T2 weighted coronal thick slab images, MRCP. Findings: No focal liver lesions Findings consistent with at least 4 stones each approximately 3 mm in the cystic duct Common hepatic duct 8 mm common bile duct 5 mm no common hepatic duct common bile duct stones, coronal image 15 Spleen is not enlarged Aorta normal size No pancreatic edema or pancreatic mass No ascites IMPRESSION: Findings suspicious for multiple small stones in the cystic duct No common hepatic or common bile duct stones noted
[2024-04-16 06:10] LABS: Basophils % (Auto) 1 % (0-2.5); Eosinophils # (Auto) 0.5 Thou/mm3 (0.0-0.5); Eosinophils % (Auto) 6 % (0-10); Hematocrit 41.9 % (36.0-46.0); Hemoglobin 13.8 g/dL (12.0-16.0); Immature Granulocytes % (Auto) 0 % (0-0); Immature Granulocytes Auto 0.03 Thou/mm3 (0.00-0.00); Lymphocytes # (Auto) 1.8 Thou/mm3 (1.0-4.8); Lymphocytes % (Auto) 23 % (10-50); Mean Corpuscular HGB Conc 32.9 g/dl (31.0-37.0); Mean Corpuscular Hemoglobin 30.1 pg (25.0-35.0); Mean Corpuscular Volume 91 fL (80-100); Monocytes # (Auto) 0.8 Thou/mm3 (0.0-0.8); Monocytes % (Auto) 10 % (0-12); Neutrophils # (Auto) 4.6 Thou/mm3 (1.8-7.7); Neutrophils % (Auto) 59 % (37-80); Nucleated Red Blood Cell % 0 /100 WBC (0); Platelet Count 270 Thou/mm3 (140-440); RDW Standard Deviation 46.1 fL (36.4-46.3); Red Blood Count 4.59 Miln/mm3 (4.00-5.20); White Blood Count 7.7 Thou/mm3 (3.6-11.0)
[2024-04-16 06:42] LABS: Alanine Aminotransferase 135 U/L (10-49); Albumin/Globulin Ratio 1.5 (1.2-2.2); Alkaline Phosphatase 182 U/L (46-116); Anion Gap 9 (7-16); Aspartate Amino Transferase 33 U/L (0-34); BUN/Creatinine Ratio 15 Ratio (12-20); Blood Urea Nitrogen 9 mg/dL (9-23); Calcium 9.3 mg/dL (8.3-10.6); Calcium (Corrected) 9.3 mg/dL (8.5-10.1); Carbon Dioxide 24.6 mMol/L (20.0-31.0); Chloride 103 mMol/L (98-107); Creatinine (Component) 0.6 mg/dL (0.6-1.3); Estimated Creatinine Clearance 64.6 mL/min (>60); Globulin 2.6 gm/dL (2.3-3.5); Glucose 130 mg/dL (74-106); Osmolality,Calculated 274 (275-295); Potassium 3.8 mMol/L (3.4-5.1); Sodium 137 mMol/L (136-145); Total Protein 6.6 gm/dL (5.7-8.2); eGFR > 60 See Note
[2024-04-16] MEDS: INSULIN LISPRO (AdmeLOG) 1 UNIT/0.01 ML UNIT SC ×3 (07:50→17:51)
[2024-04-16] MEDS: SENNA TABLET 1 TAB PO (08:26)
[2024-04-16] MEDS: APIXABAN 2.5 MG TABLET 5 MG PO ×2 (08:26→20:46)
[2024-04-16] MEDS: METOPROLOL TARTRATE 25 MG TABLET PO ×2 (08:29→20:46)
--- NOTE | 2024-04-16 10:18 | PC.SS ---
Met with patient and family to complete initial assessment. Patient alert/oriented. Patient lives at home with family. Confirmed demographic info. Emergency contact is patient's daughter, Kim Palacios [phone] or her daughter Anastasia Browning. Patient is independent with ADL's. Patient has a cane at home, used as needed. Patient's PCP is Dr. Banegas at [facility]. Patient pharmacy is [facility] in [place]. Patient plans to return home upon discharge, family to transport. No needs identified. Patient was provided with community resources.
[2024-04-16] MEDS: MAGNESIUM CITRATE 300 ML BTL PO (12:42)
--- NOTE | 2024-04-16 13:56 | PD.RESPRO ---
Documentation for date of: 04/16/24 Subjective Subjective Interval history: 04/16/2024: No acute overnight events to report. Patient seen and examined in hospital bed reporting near resolution in presenting symptoms. Patient had a BM today after initiated mag citrate along with Senna. Patient continues to tolerate diet without any abdominal pain. Patient requires MRCP to r/o any suspicion of pancreatic mass. U/S GB report read prominent pancreatic head; CT Abd/P did not confirm or deny presence of mass. However, due to the patient's pancreatitis along with initial elevated liver enzymes, acquiring a MRCP would be prudent in ruling out any concerning thoughts. Exam Vital Signs Temp Pulse Resp BP Pulse Ox O2 Del Method O2 Flow Rate 96.9 F 69 18 123/71 95 Room Air 1 04/16/24 11:41 04/16/24 11:41 04/16/24 11:41 04/16/24 11:41 04/16/24 11:41 04/16/24 11:41 04/16/24 07:37 Narrative Exam Physical Exam: GENERAL: Awake, answering questions appropriately, appears stated age HEENT: NC/AT. Moist mucosa. PERRLA/EOMI. CARDIO: Heart RRR, no obvious murmurs, no JVD. PULM: No coughing or visible SOB. Lungs CTA B/L. GI: Abdomen soft, mild tenderness to palpation in epigastric and right upper quadrant areas, no rebound tenderness, no rigidity, borborygmi apparent borborygmi apparent SKIN/MSK/EXT: No wounds/discoloration/rashes/edema/amputations noted. +Pedal pulses present B/L. NEURO: Oriented x3, form building supervisor strength 5/5, Moves extremities x4. Objective Labs 04/16/24 05:40 04/16/24 05:40 Labs: Laboratory Results - last 24 hr 04/16/24 05:40 WBC 7.7 RBC 4.59 Hgb 13.8 Hct 41.9 MCV 91 MCH 30.1 MCHC 32.9 RDW Std Deviation 46.1 Plt Count 270 Neut % (Auto) 59 Lymph % (Auto) 23 [place] % (Auto) 10 Eos % (Auto) 6 Baso % (Auto) 1 Neut # (Auto) 4.6 Lymph # (Auto) 1.8 [place] # (Auto) 0.8 Eos # (Auto) 0.5 Baso # (Auto) 0.0 Immature Gran # (Auto) 0.03 H Absolute Nucleated RBC 0.00 Immature Gran % 0 Nucleated RBC % 0 Sodium 137 Potassium 3.8 D Chloride 103 Carbon Dioxide 24.6 Anion Gap 9 BUN 9 Creatinine 0.6 Estim Creat Clear Calc 64.6 eGFR > 60 BUN/Creatinine Ratio 15 Glucose 130 H Calculated Osmolality 274 L Calcium 9.3 Corrected Calcium 9.3 Total Bilirubin 1.0 AST 33 ALT 135 H Alkaline Phosphatase 182 H Total Protein 6.6 Albumin 4.0 Globulin 2.6 Albumin/Globulin Ratio 1.5 Quality Measures Quality Measures none Advance care planning discussed with:: patient Assessment & Plan Assessment Current Active Medications: Generic Name Dose Route Start Last Admin Trade Name Freq PRN Reason Stop Dose Admin Acetaminophen 650 mg 04/13/24 18:16 Acetaminophen 325 Mg Tablet PO 05/13/24 18:15 Q6H PRN Pain 1-3 and/or Fever >100.1 Hydrocodone Bitart/Acetaminophen 1 tab 04/13/24 18:16 04/15/24 02:09 Hydrocodone/Apap 10/325 Tab PO 04/18/24 18:15 1 tab Q4H PRN Administration Pain Scale 4-6 Apixaban 5 mg 04/15/24 21:00 04/16/24 08:26 Apixaban 2.5 Mg Tablet PO 05/15/24 20:59 5 mg BID TRACEE Administration Dextrose 25 ml 04/13/24 18:23 Dextrose 50%-Water Inj 50 Ml Syringe IV 05/13/24 18:22 Q15MIN PRN BG 50-70 responsive npo pt Dextrose 50 ml 04/13/24 18:23 Dextrose 50%-Water Inj 50 Ml Syringe IV 05/13/24 18:22 Q15MIN PRN BG <50 OR BG <70 & pt unresponsive Glucagon 1 mg 04/13/24 18:23 Glucagon Inj 1 Mg Vial IM Q15MIN PRN BG <70, and no IV access Insulin Human Lispro 0 unit 04/14/24 17:00 04/16/24 11:38 Insulin Lispro (Admelog) 1 Unit/0.01 Ml Unit SC 05/14/24 16:59 3 unit AC TRACEE Administration Protocol Metoprolol Tartrate 25 mg 04/15/24 09:00 04/16/24 08:29 Metoprolol Tartrate 25 Mg Tablet PO 05/15/24 08:59 25 mg BID TRACEE Administration Morphine Sulfate 1 mg 04/13/24 18:23 Morphine Sulf Inj 10 Mg/Ml Vial IVP 04/18/24 18:15 Q4HR PRN Pain Scale 7-10 Ondansetron HCl 4 mg 04/13/24 18:16 Ondansetron Inj 2 Mg/Ml Inj 2 Ml IV 05/13/24 18:15 Q6H PRN NAUSEA OR VOMITING Protocol Sennosides 1 tab 04/14/24 09:00 04/16/24 08:26 Senna Tablet PO 05/14/24 08:59 1 tab QDAY TRACEE Administration Protocol Plan 83-year-old female with past medical history of liy-qivsgtv-kbbkzwnsw type 2 diabetes, hypertension, hyperlipidemia, A-fib on Eliquis pancreatitis with pseudocyst presents with abdominal pain will be admitted for acute pancreatitis of unspecified etiology; patient has history of pancreatitis in the past which is not attributable to gallstones, triglyceride levels or alcohol use #Acute pancreatitis, improving #Elevated liver enzymes, improving #Lactic acidosis, improving Patient has history of pancreatitis in the past with a pseudocyst Presents today with acute abdominal pain with Lipase >3500, characteristic pain and CT findings Patient has received 1 L IV normal saline; plan is to add an additional 1 L Cocci IgM negative GB U/S from 04/13 showed Pancreatic head is prominent; CT Abd/P showed no concerning mass Plan: Patient had a BM and is tolerating diet MRCP ordered, pending completion to r/o possible pancreatic mass IV fluids discontinued Multimodal analgesia (tylenol, norco 5 and morphine 1mg q4hr) depending on pain scale IV Zofran as needed every 4 hours for nausea #History of A-fib, paroxysmal Patient apparently on Eliquis 5mg po BID for AFIB 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 twice daily #Hypertension #Hypotensive, resolved Patient on home metoprolol tartrate 25mg po bid Plan: Started patient on home medication #Cca-hxudhqc-kptqyyptg type 2 diabetes Patient on home metformin 750 mg p.o. daily A1c of 6.6 Plan: Sliding scale insulin Will discontinue metformin and ask the patient to follow-up outpatient for repeat A1c #Hyperlipidemia Patient presents with triglycerides 162, cholesterol 180, LDL 101, HDL 47 LDL above target of <70; however, patient is 83 and past the age limit for ASCVD risk score Plan: Follow-up outpatient for hyperlipidemia management. Hospital Management: Lines: PIV Diet: PUD diet, bland Bowel: Senna + Mag citrate GI prophylaxis: not needed DVT prophylaxis: Eliquis 5 mg p.o. twice daily Dispo: Advancing diet, waiting for MRCP to r/o any pancreatic head mass? Code: DNR Patient seen and examined with attending Dr. Barba and senior resident Dr. Chiquita Sanchez, PGY-1 Attending Provider Attestation/Addendum I have discussed and was present for the essential components of the history, physical examination, diagnosis, and treatment plan with the resident. I agree with the patient's care as documented by the resident and amended herein by me. Manuel Barba, DO. Patient seen and evaluated this AM. Patient clinically doing well, no BMs in the morning however given mag citrate and had 1 BM this afternoon. Due to prominent pancreatic head as demonstrated on CT imaging, MRCP ordered for further evaluation. If negative, patient can likely be discharged tomorrow 04/17 at home. Although this document has been carefully reviewed, there may still be some phonetic and other typographical errors. These errors are purely grammatical due to imperfections in the software program and should not be construed in any way to compromise the substance of the patient's medical care during this visit.
--- NOTE | 2024-04-16 14:57 | PC.SS ---
Rounding update: pending MRCP
--- NOTE | 2024-04-16 17:14 | PC.NURSE ---
Patient getting MRCP done
[2024-04-17] VITALS (8 sets, daily range): BP systolic 116–148; BP diastolic 62–79; PULSE 61–85; RESP 17–18; TEMP 36.1–36.6; O2SAT 91–95
[2024-04-17 05:55] LABS: Basophils % (Auto) 1 % (0-2.5); Eosinophils # (Auto) 0.5 Thou/mm3 (0.0-0.5); Eosinophils % (Auto) 6 % (0-10); Hematocrit 42.3 % (36.0-46.0); Hemoglobin 14.3 g/dL (12.0-16.0); Immature Granulocytes % (Auto) 0 % (0-0); Immature Granulocytes Auto 0.02 Thou/mm3 (0.00-0.00); Lymphocytes % (Auto) 29 % (10-50); Mean Corpuscular HGB Conc 33.8 g/dl (31.0-37.0); Mean Corpuscular Hemoglobin 29.9 pg (25.0-35.0); Mean Corpuscular Volume 89 fL (80-100); Monocytes # (Auto) 0.9 Thou/mm3 (0.0-0.8); Monocytes % (Auto) 13 % (0-12); Neutrophils # (Auto) 3.6 Thou/mm3 (1.8-7.7); Neutrophils % (Auto) 51 % (37-80); Nucleated Red Blood Cell % 0 /100 WBC (0); Platelet Count 304 Thou/mm3 (140-440); Red Blood Count 4.78 Miln/mm3 (4.00-5.20); White Blood Count 7.1 Thou/mm3 (3.6-11.0)
[2024-04-17 06:39] LABS: Alanine Aminotransferase 102 U/L (10-49); Albumin, Serum 4.3 gm/dL (3.4-4.8); Albumin/Globulin Ratio 1.6 (1.2-2.2); Alkaline Phosphatase 172 U/L (46-116); Anion Gap 9 (7-16); Aspartate Amino Transferase 37 U/L (0-34); BUN/Creatinine Ratio 20 Ratio (12-20); Bilirubin,Total 0.8 mg/dL (0.3-1.2); Blood Urea Nitrogen 12 mg/dL (9-23); Calcium 9.6 mg/dL (8.3-10.6); Calcium (Corrected) 9.6 mg/dL (8.5-10.1); Carbon Dioxide 24.9 mMol/L (20.0-31.0); Chloride 103 mMol/L (98-107); Creatinine (Component) 0.6 mg/dL (0.6-1.3); Estimated Creatinine Clearance 64.6 mL/min (>60); Globulin 2.7 gm/dL (2.3-3.5); Glucose 133 mg/dL (74-106); Osmolality,Calculated 275 (275-295); Potassium 3.8 mMol/L (3.4-5.1); Sodium 137 mMol/L (136-145); eGFR > 60 See Note
[2024-04-17] MEDS: INSULIN LISPRO (AdmeLOG) 1 UNIT/0.01 ML UNIT SC ×2 (08:22→11:37)
[2024-04-17] MEDS: APIXABAN 2.5 MG TABLET 5 MG PO (09:10)
[2024-04-17] MEDS: METOPROLOL TARTRATE 25 MG TABLET PO (09:43)
[2024-04-17 12:49] LABS: Cocci Serology, IgG Negative (Negative)
--- NOTE | 2024-04-17 13:40 | ESDS_ITS ---
<Statement entered by Arlen Ochoa MD - 04/18/24 07:34> I discussed with and supervised the corporate legal intern physician who took care of this patient. I personally saw and examined the patient and discussed the assessment and plan with the entire medicine team, including my attending Dr. Leos, I agree with most of the assessment and plan as documented below Arlen Ochoa M.D. PGY-2 Planned Discharge Date 04/17/24 DS: Providers Provider Date of admission: 04/13/24 18:16 Primary care physician: Juan Banegas MD Admitting Provider: Eamon Leos MD Attending Provider on Admission: Theo Barba DO Consults: 04/14/24 13:41 Referral Physical Therapy Routine Comment: Physician Instructions: Attending Provider on DC: Dean Sanchez MD Discharging Provider: Dean Sanchez MD DS: Diagnosis Problem List Completed Was Problem List Reviewed/Reconciled?: Yes Hospital Course Hospital Course Hospital course: 83-year-old female with past medical history of efz-qlsbvvf-mpbtjzvjs type 2 diabetes, hypertension, hyperlipidemia, A-fib on Eliquis, cholecystectomy, history of pancreatitis with pseudocyst in the past presented to the ED on 04/13 with abdominal pain. In the ED, patient had an elevated WBC, lactic acid, elevated liver enzymes with a severely elevated lipase. Ultrasound of the gallbladder showed an absent gallbladder, a prominent pancreatic head. CT abdomen pelvis showed acute pancreatitis with no pseudocyst; patient was admitted for management of pancreatitis and to rule out any pancreatic mass. Patient was given IV fluids and pain was managed. She made remarkable recovery, diet was advanced and had a bowel movement after medical management. Patient had elevated liver enzymes which downtrended upon treatment of the pancreatitis; MRCP was ordered to rule out any pancreatic mass or retained stone. MRCP showed multiple small stones in the cystic duct; as result, spoke with GI physician who recommended outpatient follow-up with Dr. Soto. Patient will be discharged stable with the following clear instructions. Please follow-up with your Primary care provider within 1 week Please follow-up with Dr. Soto (Gastroenterology) within 1-2 weeks Stop taking Metformin and ask your PCP to repeat A1c within the next 3 months Please take Senna for constipation as needed Continue to take all your medications as prescribed If your abdominal pain worsens or you develop new fever/chills, chest pain or shortness of breath; please come back to the ED (Also translated to Turkmen) Hospital Diagnosis: #Acute pancreatitis, improving #Elevated liver enzymes, improving #Lactic acidosis, improving #History of A-fib, paroxysmal #Hypertension #Hypotensive, resolved #Aco-dbkktiz-dscerlrkc type 2 diabetes #Hyperlipidemia Dean Sanchez, PGY-1 Status at Discharge Overall status at discharge: patient is progressing back to baseline Time Spent with Patient Time attestation: Total time spent providing and/or coordinating discharge services: 45 minutes Time spent: Greater than 30 minutes Exam Vital Signs Temp Pulse Resp BP Pulse Ox O2 Del Method O2 Flow Rate 97.4 F 80 18 116/69 91 L Room Air 1 04/17/24 11:04/17/24 11:04/17/24 11:04/17/24 11:04/17/24 11:04/17/24 11:04/16/24 07:37 Narrative Exam Physical Exam: GENERAL: Awake, answering questions appropriately, appears stated age HEENT: NC/AT. Moist mucosa. PERRLA/EOMI. CARDIO: Heart RRR, no obvious murmurs, no JVD. PULM: No coughing or visible SOB. Lungs CTA B/L. GI: Abdomen soft, mild tenderness to palpation in epigastric and right upper quadrant areas, no rebound tenderness, no rigidity, borborygmi apparent borborygmi apparent SKIN/MSK/EXT: No wounds/discoloration/rashes/edema/amputations noted. +Pedal pulses present B/L. NEURO: Oriented x3, purchasing and claims supervisor strength 5/5, Moves extremities x4. Discharge Plan Plan Patient Disposition: HOME (Self Care) Prescriptions/Referrals Prescriptions/Med Rec: New metoprolol tartrate 25 mg Tablet 25 mg PO BID 30 Days Qty: 60 0RF sennosides [Senna Lax] 8.6 mg Tablet 8.6 mg PO QDAY PRN (Reason: constipation) 30 Days Qty: 30 0RF Continued atorvastatin 10 mg Tablet 10 mg PO QPM Eliquis 5 mg Tablet 5 mg PO BID Discontinued metoprolol succinate 25 mg tablet extended release 24 hr 25 mg PO BID metformin 500 mg Tablet 500 mg PO BID cephalexin 500 mg capsule 500 mg PO QID Qty: 56 0RF Referrals: Juan Banegas MD [Primary Care Provider] - Patient/Caregiver Discharge Instructions Discharge Activity: activity as tolerated Other Discharge Activity Instructions:: Please follow-up with your Primary care provider within 1 week Please follow-up with Dr. Soto (Gastroenterology) within 1-2 weeks Stop taking Metformin and ask your PCP to repeat A1c within the next 3 months Please take Senna for constipation as needed Continue to take all your medications as prescribed If your abdominal pain worsens or you develop new fever/chills, chest pain or shortness of breath; please come back to the ED Sunshine un seguimiento con arndt PCP dentro de 1 semana Sunshine un seguimiento con el Dr. Soto (Gastroenterolog?a) dentro de 1 a 2 semanas. Deje de alisa metformina y p?kalyn a arndt PCP que repita el A1c dentro de los pr?ximos 3 meses. [place] Senna para el estre?imiento seg?n sea necesario. Contin?e tomando todos loy medicamentos seg?n lo recetado. Si arndt dolor abdominal empeora o presenta nueva fiebre/escalofr?os, dolor en el pecho o dificultad para respirar; por favor regrese al servicio de urgencias Other Discharge Diet Instructions: Eat non-acidic fruits like apples, pears, bananas, and melons, and non-acidic vegetables like spinach, sweet potatoes, carrots, and broccoli. Avoid spicy or acidic vegetables like tomatoes and peppers. You should also avoid foods and drinks that cause discomfort, such as alcohol, coffee, caffeinated soda, fatty foods, chocolate, and spicy foods. Consuma frutas no ?cidas karl manzanas, peras, pl?tanos y melones, y verduras no ?cidas karl espinacas, batatas, zanahorias y br?coli. Evite las verduras picantes o ?cidas karl los tomates y los pimientos. Tambi?n debes evitar alimentos y bebidas que causen malestar, karl el alcohol, el caf?, los refrescos con cafe?na, los alimentos grasos, el chocolate y las comidas picantes. Education Materials: Understanding Pancreatitis, ED Pancreatitis Print Language: Turkmen Stand Alone Forms: Alee Award Info., Patient Portal Info Letter Discharge Order Discharge Orders: Discharge (Routine); Ordered 04/17/24 Ordered By: Dean Sanchez Quality Discharge Quality Measures VTE prophylaxis MD Attestestation MD Attestation I have discussed and was present for the essential components of the discharge history, physical examination, diagnosis, and discharge treatment plan with the resident. I agree with the patient's discharge care as documented by the resident and amended herein by me. Manuel Barba DO. The patient understood all discharge instructions, all questions were answered satisfactorily. The patient was instructed to return to the Emergency Department is symptoms worsened or persisted. Patient was stable, afebrile, tolerating p.o. intake at time of discharge Although this document has been carefully reviewed, there may still be some phonetic and other typographical errors. These errors are purely grammatical due to imperfections in the software program and should not be construed in any way to compromise the substance of the patient's medical care during this visit.
== END 2024-04-17 16:10 | disposition home or self-care (01) | DRG 282 ==
LOC: SERX 16:28 → SERHOLD 18:41 → S3NX 04-14 09:24
PROVIDERS: Nurse Practitioner Family; Nurse Practitioner Primary Care; Student in an Organized Health Care Education/Training Program; Admitting Provider Student in an Organized Health Care Education/Training Program; Emergency Provider Emergency Medicine; PCP Family Medicine; Visit Provider Student in an Organized Health Care Education/Training Program
DX: K85.90 Acute pancreatitis without necrosis or infection, unspecified (principal); E11.9 Type 2 diabetes mellitus without complications; I10 Essential (primary) hypertension; E78.5 Hyperlipidemia, unspecified; I95.9 Hypotension, unspecified; I48.0 Paroxysmal atrial fibrillation; K86.1 Other chronic pancreatitis; E87.20 Acidosis, unspecified; Z66 Do not resuscitate; Z96.642 Presence of left artificial hip joint; Z79.01 Long term (current) use of anticoagulants; Z79.84 Long term (current) use of oral hypoglycemic drugs; Z79.899 Other long term (current) drug therapy
CPT/HCPCS: 36415; 74177; 76705; 80053; 80061; 81001; 83036; 83605; 83690; 83735; 84100; 84145; 84443; 84484; 85025; 85610; 86331; 86635; 87040; 93005; 93225; 96372; 96374; 97162; 99285; A4649; J1643; J1815; J2270; J2405; J3490; J7030; Q9967; S8037; 74181; A9270; J1644

== ENCOUNTER 2024-10-05 22:45 | Emergency (ER) | payer MEDICAID, SELFPAY ==
[2024-10-05 22:47] VITALS: BMI 30.4
[2024-10-05 23:47] VITALS: BP 150/73; PULSE 67; RESP 18; TEMP 36.7; O2SAT 95
--- NOTE | 2024-10-06 00:07 | XR_ITS ---
Examination: Hand, right 3 views Technique: Hand AP, oblique, lateral 3 views Date and time of exam: October 06, 2024 0145 hours INDICATIONS: Patient fell tonight with injury to hand, hand pain. FINDINGS: Soft tissue swelling dorsum of the hand No acute fracture Soft tissue vascular calcification IMPRESSION: No acute fracture
--- NOTE | 2024-10-06 00:07 | XR_ITS ---
Examination: Knee, left , 3 views Technique: Knee AP, lateral, oblique 3 views Date and time of exam: October 06, 2024 0145 hours INDICATIONS: Left knee pain after falling tonight FINDINGS: Severe osteopenia. No fracture or dislocation IMPRESSION: No fracture or dislocation
--- NOTE | 2024-10-06 00:07 | EDRME_ITS ---
Rapid Medical Screening Exam RME Arrival date/time: 10/05/24 22:45 Chief Complaint: Wound/Laceration Time Seen by Provider: 10/05/24 22:48 Vital signs: Vital Signs Temperature 98.1 F 10/05/24 23:47 Pulse Rate 67 10/05/24 23:47 Respiratory Rate 18 10/05/24 23:47 Blood Pressure 150/73 H 10/05/24 23:47 Pulse Oximetry (%) 95 10/05/24 23:47 Oxygen Delivery Method Room Air 10/05/24 23:47 [facility] Narrative: Trip and fall at home tonight; c/o right hand/elbow pain and left knee pain. Denies head injury. Skin tear right hand
--- NOTE | 2024-10-06 00:07 | XR_ITS ---
Examination: Right elbow 3 views Technique: Elbow AP, oblique, lateral 3 views Exam date and time: October 06, 2024 0145 hours INDICATIONS: Patient fell tonight with injury to the elbow, elbow pain. FINDINGS: Severe osteopenia No fracture or dislocation IMPRESSION: No fracture or dislocation.
[2024-10-06] MEDS: HYDROcodone/APAP 5/325 TABLET 1 TAB PO (00:17)
[2024-10-06 02:25] VITALS: BP 154/85; PULSE 62; RESP 18; TEMP 36.6; O2SAT 98
--- NOTE | 2024-10-06 03:41 | PD.EDWOUND ---
ED Wound/Laceration-RME/HPI General Chief Complaint: Wound/Laceration Stated Complaint: FALL- RT HAND/LEG LAC Time Seen by Provider: 10/05/24 22:48 Arrival date/time: 10/05/24 22:45 RME / HPI RME / HPI narrative: Trip and fall at home tonight; c/o right hand/elbow pain and left knee pain. Denies head injury. Skin tear right hand Dr. Schrader?s Main ED Evaluation: 83yo female with a history of [id number] type 2 diabetes, hypertension, hyperlipidemia, A-fib on Eliquis presents to the ED s/p fall. Patient states she tripped and fell over her cane at 2200, reporting her hand went forward when she hit the floor. She denies any head strikes or loss of consciousness. Patient endorses having right hand and elbow pain, as well as left knee pain. She denies any headache, neck pain, chest pain, abdominal pain or any other associated symptoms. She currently denies being in any pain. NKA. Patient is on Eliquis. Related Data Home Medications ?Medication ?Instructions ?Recorded ?Confirmed atorvastatin 10 mg tablet 10 mg PO QPM 11/10/20 10/09/23 apixaban 5 mg tablet (Eliquis) 5 mg PO BID 06/20/23 10/09/23 Previous Rx's ?Medication ?Instructions ?Recorded hydrocodone 5 mg-acetaminophen 325 1 tab PO Q6H PRN pain #10 tabs 10/06/25 mg tablet Allergies Allergy/AdvReac Type Severity Reaction Status Date / Time No Known Allergies Allergy Verified 04/13/24 12:10 Review of Systems Review of Systems Systems Reviewed: All systems reviewed, normal except as documented Past Medical History Past Medical History NEUROLOGIC: Negative Neurological Disorders, Transient Ischemic Attacks (TIA), Dementia, Alzheimer's Disease, Parkinson's Disease, Brain Tumor, Meningitis, Seizures, Epilepsy, Multiple Sclerosis, Cerebral Palsy, Amyotrophic Lateral Sclerosis (ALS/Sabrina Gehrig's), Guillain-Watson Syndrome, Spina Bifida, Paralysis, Peripheral Neuropathy, Villegas's Palsy, Subdural Hematoma, Migraine, Head Trauma, Spinal Cord Injury or Traumatic Brain Injury CARDIAC: Positive Cardiac Disorders and Hypertension; Negative Myocardial Infarction, Cardiac Arrhythmia, Atrial Fibrillation, Angina, Heart Murmur, Atherosclerotic Heart Disease, Peripheral Vascular Disease, Hypercholesterolemia, Aneurysm, Congestive Heart Failure, Congenital Heart Disease, Valvular Heart Disease, Rheumatic Fever, Cardiomyopathy, Edema, Pericarditis, Cellulitis, Deep Vein Thrombosis, Hypotension or Varicose Veins RESPIRATORY: Negative Chronic Obstructive Pulmonary Disease (COPD), Asthma, Bronchitis, Emphysema, Pneumonia, Pulmonary Fibrosis, Cystic Fibrosis, Tuberculosis, Pulmonary Embolism, Pulmonary Edema or Sleep Apnea GASTROINTESTINAL: Positive Gastrointestinal Disorders, Pancreatitis and Obesity; Negative Hepatitis, Cirrhosis, Celiac Disease, Gall Bladder Disease, Gastrointestinal Bleed, Esophageal Varices, Castaneda's Esophagus, Colitis, Ulcerative Colitis, Diverticulitis, Diverticulosis, Ulcer, Colorectal Cancer, Irritable Bowel, Crohn's Disease, Hiatal Hernia, Hemorrhoids or Gastroesophageal Reflux Disease GENITOURINARY: Negative Genitourinary Disorders, Renal Disease, Kidney Stones, Polycystic Kidney Disease, Neurogenic Bladder, Inguinal Hernia, Dialysis, Prostate Cancer or Benign Prostatic Hyperplasia REPRODUCTIVE: Negative Breast Cancer, Endometriosis, Genital Herpes, Gonorrhea, Pelvic Inflammatory Disease, Previous Pregnancies, Syphilis, Testicular Cancer or Uterine Prolapse MUSCULOSKELETAL: Positive Musculoskeletal Disorders, Arthritis, Osteoporosis and Fractures; Negative Muscular Dystrophy, Myasthenia Gravis, Marfan's Syndrome, Bone Cancer, Rheumatoid Arthritis, Degenerative Disk Disease, Gout, Scoliosis, Carpal Tunnel Syndrome, Fibromyalgia, Degenerative Joint Disease, Osteomyelitis or Poliovirus ENT: Positive Cataracts and Glaucoma; Negative Blind, Retinal Detachment, Macular Degeneration, Ear Infection, Deafness, Head Trauma or Eye Prosthesis ENDOCRINE: Positive Endocrine Disorders and Diabetes Mellitus Type 2; Negative Diabetes Mellitus Type 1, Hypoglycemia, Karol's Syndrome, Al's Disease, Hyperthyroidism, Hypothyroidism, Parathyroid Disease, Pituitary Disease, Systemic Lupus Erythematosus, Syndrome of Inappropriate Antidiuretic Hormone (SIADH), Adrenal Disease or Graves' Disease HEMATOLOGIC: Negative Blood Disorders, Anemia, Leukemia, Hemophilia, Thalassemia, Sickle Cell Disease or Clotting Problems PSYCHO/SOCIAL: Negative Psychiatric Problems, Schizophrenia, Recreational Drug Use, Bipolar Disorder, Depression, Anxiety, Behavior Problems, Self-Mutilation, Attention Deficit Disorder, Attention Deficit Hyperactivity Disorder, Depression, Post Traumatic Stress Disorder or Eating Disorder OTHER HISTORY: Positive Hospitalization and Falls; Negative Autoimmune Disease, Down Syndrome, Autism, Developmental Delay, Shingles, Blood Transfusions, Anesthesia Reactions, Organ Transplant, Chemotherapy, Radiation Therapy, Hyperbaric Therapy, MRSA, VRSA, Vancomycin-Resistant Enterococci, Human Immunodeficiency Virus (HIV), Chicken Pox, Measles, Mumps, Rubella ([place] Islander Measles), Pertussis, Clostridium Difficile, Breast Cancer, Cervical Cancer, Colorectal Cancer, Lung Cancer, Ovarian Cancer, Prostate Cancer or Testicular Cancer Family History FAMILY HISTORY: Negative Family Psychiatric Problems, Family Respiratory Disorders, Family Cardiac Disorders, Family Gastrointestinal Problems, Family Cancer, Family Surgery or Family Anesthesia Reaction Surgical History SURGICAL: Positive Eye Surgery; Negative Cardiac Surgery, Open Heart Surgery, Coronary Artery Bypass Graft, Valve Replacement, Vascular Surgery, Coronary Stent, Cardiac Catheterization, Pacemaker, Angiogram, Endocrine Surgery, Thyroidectomy, Ear Surgery, Tympanostomy Tube, Nose Surgery, Oral Surgery, Tonsillectomy, Adenoidectomy, Cochlear Implant, Corneal Transplant, Throat Surgery, Abdominal Surgery, Tracheostomy, Gastric Bypass Surgery, Gastrostomy, Bowel Surgery, Nephrectomy, Transurethral Resection, Joint Replacement, Amputation, Open Reduction Internal Fixation, Arthroscopy, Neurologic Surgery, Brain Shunt, Mastectomy, Lumpectomy, Hysterectomy, Tubal Ligation, Section, Vasectomy or Organ Transplant Social History SMOKING STATUS: Never smoker SECOND HAND EXPOSURE: No ED Exam Narrative Physical exam: GENERAL APPEARANCE: alert and oriented x 4, well-developed, well-nourished, no acute distress VITALS: All vitals were reviewed and the pulse ox is 98% on room air, which is normal according to my interpretation. HEENT: Normocephalic, atraumatic; pupils equal, round, reactive to light; EOMI; mucous membranes pink, moist; oropharynx clear NECK: Supple. no midline c-spine tenderness LUNGS: CTABL; no wheezes, no rales, no rhonchi HEART: Regular rate, regular rhythm; normal S1, S2; no murmurs ABDOMEN: non distended; normal BS; soft, no tenderness, no guarding, no rebound; no masses, no organomegaly, no hernia BACK: no CVA tenderness EXTREMITIES: large ecchymotic area with overlying abrasion to the left anterior knee; large dorsal ecchymosis with 8 cm lenticular skin tear to the right hand NEUROLOGIC: awake; alert and oriented x4; cranial nerves II-XII grossly intact; no focal sensory or motor deficits PSYCHIATRIC: appropriate mood and affect SKIN: warm, dry, normal color; no rashes Course Quality Measures none Orders Category Date Time Status Miscellaneous Nursing Order NOW Care 10/06/24 03:49 Active Miscellaneous Nursing Order NOW Care 10/06/24 03:50 Active Steri-Strips to: X1 Care 10/06/24 03:47 Active TDap [Obtain Tdap Consent] X1 Care 10/06/24 03:47 Active XR elbow comp RT min 3V Stat Exams 10/06/24 00:07 Taken XR hand comp RT min 3V Stat Exams 10/06/24 00:07 Taken XR knee LT 3V Stat Exams 10/06/24 00:07 Taken Bacitracin Oint pkt Med 10/06/24 03:49 Discontinued 1 gm TOP X1 ONE HYDROcodone*/APAP 5/325 [[place] 5/325] Med 10/06/24 00:07 Discontinued 1 tab PO X1 ONE TET,DIP/PERT AC (Adult)-Tdap [Boostrix Adult (Tdap) Med 10/06/24 03:47 Discontinued Vacc] 0.5 ml IMI .ONCE ONE Vital Signs Vital signs: Vital Signs Temperature 98.1 F 10/05/24 23:47 Pulse Rate 67 10/05/24 23:47 Respiratory Rate 18 10/05/24 23:47 Blood Pressure 150/73 H 10/05/24 23:47 Pulse Oximetry (%) 95 10/05/24 23:47 Oxygen Delivery Method Room Air 10/05/24 23:47 Wound / Laceration MDM Narrative MDM Narrative:: Scribe Attestation: 10/06/24 Lexi Escamilla am scribing for and in the presence of Dr. Schrader. Patient was able to stand and ambulate without assistance. Patient's right hand wound was irrigated and dressed with steri strips. The abrasion to her right elbow was also dressed with steri strips. Patient is stable to be discharged home. Patient data External records reviewed:: [facility] previous records (Per chart review, patient was admitted here on 04/13/24 for acute pancreatitis.) Clinical information provided by:: patient Social determinants that could affect healthcare access:: none Patient has the following chronic illnesses:: jog-gqrtsbz-dkmtzahfi type 2 diabetes, hypertension, hyperlipidemia, A-fib on Eliquis How is presenting disease/condition affected by chronic disease/condition?: uneffected by Evaluation data The following diagnostics were reviewed and interpreted by me:: radiology exam(s) Lab and/or radiology exams considered but not ordered:: none Interpretation Summary: Left knee pain is negative for any patellar fracture, tibial plateau fracture, or dislocation, but does show a large effusion, according to my interpretation. Right hand x-ray is negative for any fractures, dislocations or subluxation, according to my interpretation. Right elbow is negative for any fractures, dislocation or subluxation, according to my interpretation. Medications / Prescriptions Medications or Prescriptions considered but not ordered:: none Medication administrations:: Medication Administration History Discontinued Medications Hydrocodone Bitart/Acetaminophen (Hydrocodone/Apap 5/325 Tablet) 1 tab PO X1 ONE Stop: 10/06/24 00:08 Last Admin: 10/06/24 00:17 Dose: 1 tab Documented By: CVL Bacitracin (Bacitracin Oint 1 Gm Packet) 1 gm TOP X1 ONE Stop: 10/06/24 03:50 Last Admin: 10/06/24 04:34 Dose: 1 gm Documented By: CCT Diphtheria/Tetanus/Acell Pertussis (Diphth,Pertuss(Acell),Tet Vac 0.5 Ml Syr- Adult) 0.5 ml IMi .ONCE ONE Stop: 10/06/24 03:48 Last Admin: 10/06/24 04:34 Dose: 0.5 ml Documented By: CCT see above Consultations Consultation(s) initiated? (list below): No Diagnosis Wound Differential Diagnosis: laceration, abrasion, avulsion of skin and other (fracture, dislocation, contusion) Most likely diagnosis given after review of the tests above:: see clinical impression below Admission Indicated Admission indicated?: not indicated Admission Request Was there a request for admission?: No Disposition Plan Disposition Plan: Discharge Discharge Attestation Discharge Attestation: The patient and all family members were given an opportunity to ask questions and understood the discharge instructions. Discharge instructions specifically effects, indications for sooner follow up or return to the emergency department, and the expected course of current diagnosis. Patient condition: Stable Discharge Plan Plan Patient Disposition: HOME (Self Care) Discharge Disposition comment: Stable for discharge home with family Patient condition on transfer: Stable Prescriptions/Referrals Prescriptions/Med Rec: New hydrocodone-acetaminophen 5-325 mg tablet 1 tab PO Q6H MDD 4 tabs PRN (Reason: pain) Qty: 10 0RF No Action atorvastatin 10 mg Tablet 10 mg PO QPM Eliquis 5 mg Tablet 5 mg PO BID Referrals: Juan Banegas MD [Primary Care Provider] - In 1 week Problem List Clinical Impression: Skin tear, Abrasion, Contusion Patient/Caregiver Discharge Instructions Discharge Activity: activity as tolerated Education Materials: Bruises (Contusions), ED Abrasions, ED Skin Avulsion Additional Instructions: Please return to the emergency department if you have any worsening or any further medical problems and we will help you. Otherwise you should follow-up with your primary care doctor within the next several days There is a prescription waiting for you at your pharmacy. This medicine is called hydrocodone/acetaminophen. This is for pain. You should take up to 1 tab every 6 hours for pain. You cannot drive or operate heavy machinery after taking this medication Print Language: Bahamian Stand Alone Forms: [employer] Award Info., Patient Portal Info Letter
--- NOTE | 2024-10-06 04:15 | PC.NURSE ---
Pt able to stand and ambulate from gurney to room door with minmum assist. Pt tolerated well; however, pt requested for wheelchair to use the restroom. Daughter states she uses cane and also has a walker at home. Dr. Schrader made aware.
[2024-10-06 04:30] VITALS: BP 154/59; PULSE 63; RESP 18; TEMP 36.9; O2SAT 96
[2024-10-06] MEDS: BACITRACIN OINT 1 GM PACKET TOP (04:34)
[2024-10-06] MEDS: DIPHTH,PERTUSS(ACELL),TET VAC 0.5 ML SYR- ADULT IMi (04:34)
[2024-10-06 05:28] VITALS: RESP 16
== END 2024-10-06 05:29 | disposition home or self-care (01) ==
PROVIDERS: Emergency Provider Emergency Medicine; PCP Family Medicine
DX: S61.411A Laceration without foreign body of right hand, initial encounter (principal); Z23 Encounter for immunization; W01.0XXA Fall on same level from slipping, tripping and stumbling without subsequent striking against object, initial encounter; Y92.009 Unspecified place in unspecified non-institutional (private) residence as the place of occurrence of the external cause; E78.5 Hyperlipidemia, unspecified; I10 Essential (primary) hypertension; E11.9 Type 2 diabetes mellitus without complications; I48.91 Unspecified atrial fibrillation; M25.562 Pain in left knee; S50.311A Abrasion of right elbow, initial encounter
CPT/HCPCS: 73080; 73130; 73562; 90471; 90715; 99283; A9270

== ENCOUNTER 2024-10-25 05:35 | Inpatient (IN) | payer MEDICAID, SELFPAY ==
[2024-10-25] VITALS (40 sets, daily range): BP systolic 93–160; BP diastolic 44–75; PULSE 69–124; RESP 17–41; TEMP 36.7–39.1; O2SAT 88–97; BMI 32.8
--- NOTE | 2024-10-25 | XR_ITS ---
MRI abdomen, without contrast. MRCP Date and time of exam: October 25, 2024 1150 hours Comparison April 16, 2024 INDICATIONS: Elevated transaminase liver function tests on laboratory examination today, fever abdominal pain and distention vomiting 3 days, also elevated bilirubin Technique: Multiple axial and coronal images of the abdomen have been obtained with the Siemens 1.5T MRI scanner. Images obtained included T1 weighted transverse images, T2-weighted transverse images, T2-weighted transverse images fat-suppressed, T2 weighted haste fat suppressed transverse images, T1 weighted images, in and out of phase images, T2-weighted coronal images, breath hold, T2 weighted haze coronal images as well as T2 weighted coronal thick slab images, MRCP. Findings: Hepatomegaly 18 cm Absent gallbladder Common hepatic common bile duct 4 mm no stones Edema around and especially below the pancreas extending into the lower abdomen 6.2 cm left renal cyst Minimal perinephric stranding Aorta normal size No splenomegaly IMPRESSION: Moderate hepatomegaly Absent gallbladder No common hepatic or common bile duct stones Pancreatitis, no pseudocyst
--- NOTE | 2024-10-25 06:35 | XR_ITS ---
Examination: CT abdomen and pelvis without contrast. Coronal 3-D reconstructions. Sagittal 2-D reconstructions. Date and time of exam:October 25, 2024 1023 hours Comparison April 13, 2024 INDICATIONS: Onset right upper abdominal pain today CTDI: vol (mGy): 11 DLP: (mGycm): 589 Technique: Axial images of the abdomen have been obtained, 3 mm slice thickness Intravenous contrast material has not been administered. Low dose protocols were performed. One or more of the following dose reduction techniques were used; automated exposure control, adjustment of the mA and/or KV according to patient size, use of iterative reconstruction technique. Findings: Fluid-filled distal esophagus No focal liver or splenic lesions Absent gallbladder Suspicious for mild edema around the pancreas 6 cm left renal cyst No renal or ureteral calculi, no hydronephrosis Normal appendix No bowel obstruction No diverticulitis Atrophic uterus No bladder mass Total left hip arthroplasty Advanced narrowing right hip joint IMPRESSION: Fluid filled lower esophagus, consider reflux esophagitis Suspicious for acute pancreatitis, consider MRCP follow-up
--- NOTE | 2024-10-25 06:36 | PD.EDRME ---
Rapid Medical Screening Exam RME Arrival date/time: 10/25/24 05:35 84-year-old female with a history of hyperlipidemia presents to the emergency room with a chief complaint of fever, abdominal pain and distention, vomiting x 3 days I have greeted and performed a focused initial assessment of this patient. A comprehensive ED assessment and evaluation of the patient, analysis of all test results, and completion of the medical decision making process will be conducted by additional ED providers. Chief Complaint: Abdominal Pain Vital signs: Vital Signs Temperature 100.4 F 10/25/24 05:56 Pulse Rate 98 10/25/24 05:56 Respiratory Rate 17 10/25/24 05:56 Blood Pressure 160/75 H 10/25/24 05:56 Pulse Oximetry (%) 97 10/25/24 05:56 Oxygen Delivery Method Room Air 10/25/24 05:56 Vital signs reviewed by provider: Yes
[2024-10-25 07:41] LABS: Collection Type, Urine Clean Catch; WBC,Urine 0 /hpf (0-5)
[2024-10-25 07:46] LABS: Bilirubin,Urine Negative (Negative); Blood,Urine Negative (Negative); Clarity,Urine Clear (Clear/Hazy); Color,Urine Lt-Yellow (Lt Yel-Yel); Glucose, Urine Negative (Negative); Ketones,Urine Negative (Negative); Leukocyte Esterase,Urine Negative (Negative); Nitrite,Urine Negative (Negative); Protein,Urine Negative (Neg - Trace); RBC,Urine 1 /hpf (0-3); Specific Gravity,Urine 1.008 (1.001-1.035); Squamous Epithelial Cell,Urine < 1 /hpf (0-5); Urobilinogen,Urine Negative mg/dL (0.0-1.0)
[2024-10-25] MEDS: ONDANSETRON ODT 4 MG TABRAP PO (07:51)
[2024-10-25 07:52] LABS: Basophils % (Auto) 0 % (0-2.5); Eosinophils % (Auto) 0 % (0-10); Hemoglobin 13.9 g/dL (12.0-16.0); Immature Granulocytes % (Auto) 0 % (0-0); Immature Granulocytes Auto 0.05 Thou/mm3 (0.00-0.00); Lymphocytes # (Auto) 0.4 Thou/mm3 (1.0-4.8); Lymphocytes % (Auto) 3 % (10-50); Mean Corpuscular HGB Conc 34.8 g/dl (31.0-37.0); Mean Corpuscular Volume 89 fL (80-100); Monocytes # (Auto) 0.1 Thou/mm3 (0.0-0.8); Monocytes % (Auto) 1 % (0-12); Neutrophils # (Auto) 13.5 Thou/mm3 (1.8-7.7); Neutrophils % (Auto) 96 % (37-80); Nucleated Red Blood Cell % 0 /100 WBC (0); Platelet Count 335 Thou/mm3 (140-440); RDW Standard Deviation 46.5 fL (36.4-46.3); Red Blood Count 4.49 Miln/mm3 (4.00-5.20); White Blood Count 14.1 Thou/mm3 (3.6-11.0)
[2024-10-25] MEDS: MG HYD/AL HYD/SIME (Maalox Reg) SUSP 30 ML UDC PO (07:52)
[2024-10-25 08:26] LABS: Alanine Aminotransferase 578 U/L (10-49); Albumin, Serum 4.6 gm/dL (3.4-4.8); Albumin/Globulin Ratio 1.7 (1.2-2.2); Alkaline Phosphatase 270 U/L (46-116); Anion Gap 17 (7-16); Aspartate Amino Transferase 956 U/L (0-34); BUN/Creatinine Ratio 19 Ratio (12-20); Bilirubin,Total 3.2 mg/dL (0.3-1.2); Blood Urea Nitrogen 15 mg/dL (9-23); Calcium 9.1 mg/dL (8.3-10.6); Calcium (Corrected) 9.1 mg/dL (8.5-10.1); Chloride 100 mMol/L (98-107); Creatinine (Component) 0.8 mg/dL (0.6-1.3); Estimated Creatinine Clearance 48.9 mL/min (>60); Globulin 2.7 gm/dL (2.3-3.5); Glucose 232 mg/dL (74-106); Lipase > 3500 U/L (12-53); Osmolality,Calculated 285 (275-295); Potassium 3.9 mMol/L (3.4-5.1); Sodium 139 mMol/L (136-145); Total Protein 7.3 gm/dL (5.7-8.2); eGFR > 60 See Note
--- NOTE | 2024-10-25 09:38 | PD.EDADULT ---
ED General RME/HPI General Chief complaint: Abdominal Pain Stated complaint: RUQ ABD PAIN WITH NV Arrival date/time: 10/25/24 05:35 RME / HPI RME / HPI narrative: 10/25/24 05:35 84-year-old female with a history of hyperlipidemia presents to the emergency room with a chief complaint of fever, abdominal pain and distention, vomiting x 3 days I have greeted and performed a focused initial assessment of this patient. A comprehensive ED assessment and evaluation of the patient, analysis of all test results, and completion of the medical decision making process will be conducted by additional ED providers. DR. GUTIERREZ MAIN ED EVALUATION: 84 year old female with past medical history significant for pancreatitis presents to the Emergency Department with complaints of nausea, vomiting, and abdominal pain. She states her abdominal pain feels tight like it did last time she had pancreatitis on 03/2024. No other symptoms reported at this time. Other PMHx include hypertension, diabetes, arthritis, and osteoporosis. Related Data Home Medications ?Medication ?Instructions ?Recorded ?Confirmed atorvastatin 10 mg tablet 10 mg PO QPM 11/10/20 10/09/23 apixaban 5 mg tablet (Eliquis) 5 mg PO BID 06/20/23 10/09/23 Previous Rx's ?Medication ?Instructions ?Recorded hydrocodone 5 mg-acetaminophen 325 1 tab PO Q6H PRN pain #10 tabs 10/06/24 mg tablet Allergies Allergy/AdvReac Type Severity Reaction Status Date / Time No Known Allergies Allergy Verified 10/25/24 05:40 Review of Systems Review of Systems Systems Reviewed: All systems reviewed, normal except as documented Narrative Review of Systems: Constitutional: DENIES: fevers; Eyes: DENIES: loss of vision; Head/Ear/Nose: DENIES: loss of hearing. Throat: DENIES: dysphagia. Cardiovascular: DENIES: chest pain, dyspnea, or syncope. Respiratory: DENIES: shortness of breath; Gastrointestinal: POSITIVES: nausea, vomiting, and abdominal pain; DENIES: rectal bleeding or melena. Genitourinary: DENIES: dysuria (painful or difficult urination); Musculoskeletal: DENIES: arthralgia (pain in a joint); Skin: DENIES: rash; Neurological: DENIES: loss of function or movement; Psychiatric: DENIES: recent major life stressor, emotional problem, illicit drug use or abuse; Endocrinology: DENIES: weight change,; Hematologic/Lymphatic: DENIES: abnormal bruising. Allergic/Immunologic: DENIES: urticaria (hives). Past Medical History Past Medical History CARDIAC: Positive Cardiac Disorders and Hypertension GASTROINTESTINAL: Positive Gastrointestinal Disorders, Pancreatitis and Obesity MUSCULOSKELETAL: Positive Musculoskeletal Disorders, Arthritis, Osteoporosis and Fractures ENT: Positive Cataracts and Glaucoma ENDOCRINE: Positive Endocrine Disorders and Diabetes Mellitus Type 2 OTHER HISTORY: Positive Hospitalization and Falls Surgical History SURGICAL: Positive Eye Surgery Social History SMOKING STATUS: Never smoker SECOND HAND EXPOSURE: No SUBSTANCE USE: does not use ALCOHOL: Never ED Exam Narrative Physical exam: Physical Exam: General: The vital signs were reviewed. Patient is tachycardia 120 O2 sats are 91% on room air the patient is non-toxic, in no apparent distress and appears healthy with a patent airway, no respiratory distress and has no apparent circulatory problems. Head & Scalp: Normocephalic, atraumatic. Face: Appears normal and is without lesions, deformity. Ears: Left external pinna appears normal. Right external pinna appears normal. Eyes: The sclera is anicteric. No obvious photophobia. The Left and Right Orbit/Lid/Conjunctiva appears normal without swelling, discoloration or injection. Nose: The nose is without deformity, discharge or tenderness; Throat: Appears normal. The mucous membranes are pink and moist without exudates, redness or mass seen. The tongue appears normal. Neck: The neck is supple and no apparent mass or adenopathy. Chest: The chest wall is normal in size and symmetry and has no chest wall tenderness or crepitus. The patient displays normal ventilator effort without retractions, accessory muscle use and has adequate air movement bilaterally with no wheezes and no rales. Cardiovascular: Regular rate and rhythm; No murmurs, rubs, or gallops; Gastrointestinal: The abdomen appears maybe slightly distended No obvious hernias or mass. The abdomen vague diffuse mid and upper abdominal pain. Bowel sounds are present and normal sounding. No CVA tenderness. Genitourinary: Back/Spine: Normal inspection Extremities/Musculoskeletal/lymphatic: The bilateral upper and lower extremities are warm. There is no evidence of arterial insufficiency. There is no evidence of venous insufficiency/edema. The patient spontaneously moves bilateral upper and lower extremities with no pain and no limitation of movement. There is no apparent, injury or trauma. Skin: The skin is warm, dry and intact. No rashes. No petechia. No purpura. No abnormal bruising. The color is appropriate with no cyanosis. Mental status/Psychiatric: Mental status is appropriate for age. The patient has no apparent delusions, visual hallucinations, no apparent audible hallucinations. The patient has no apparent suicidal thoughts/ideation and no apparent homicidal thoughts/ideation. Neurological: The patient is awake, alert, interactive, cordial, cooperative and is oriented to name and situation. The patient follows commands and answers historical question with no impairment. There is no visual disturbance apparent. The pupils are equal and reactive bilaterally with normal eye movements and no diplopia The bilateral upper and lower extremities have normal strength, normal range of motion and normal functioning. The gait, station and balance not tested due to acuity Course Quality Measures none Orders Category Date Time Status MRI Screening NOW Care 10/25/24 09:49 Active Miscellaneous Nursing Order NOW Care 10/25/24 10:[address] abdomen pelvis wo con Stat Exams 10/25/24 06:35 Completed MR MRCP Stat Exams 10/25/24 Completed Blood Culture (Lab) Stat Lab 10/25/24 10:45 Received CBC Stat Lab 10/25/24 07:33 Completed CMP [Comprehensive Metabolic Panel] Stat Lab 10/25/24 07:33 Completed Lactate (Lactic Acid) Stat Lab 10/25/24 10:45 Completed Lactic Acid, 3 HR Stat Lab 10/25/24 14:16 Completed Lipase Stat Lab 10/25/24 07:33 Completed UA [Urinalysis] Stat Lab 10/25/24 07:32 Completed Urine Culture Stat Lab 10/25/24 07:32 Received Venous Blood Gas Stat Lab 10/25/24 10:45 Completed Ondansetron Odt [Zofran Odt] Med 10/25/24 06:35 Discontinued 4 mg PO X1 ONE Piper/Tazo 3.375 gm Premix [Zosyn] Med 10/25/24 11:48 Discontinued 3.375 gm in 50 ml IV X1 Sodium Chloride 0.9% 1000 ml [Ns] 1,000 ml Med 10/25/24 10:01 Discontinued IV 150 mls/hr Sodium Chloride 0.9% 1000 ml [Ns] 1,000 ml Med 10/25/24 11:50 Discontinued IV 150 mls/hr Sodium Chloride 0.9% 1000 ml [Ns] 1,000 ml Med 10/25/24 10:01 Discontinued IV 999 mls/hr Sodium Chloride 0.9% 1000 ml [Ns] 1,000 ml Med 10/25/24 11:50 Discontinued IV 999 mls/hr Vancomycin/Ns 1 gm Ivpb 200 ml Med 10/25/24 11:49 Discontinued IV X1 mg Hyd/Al Hyd/Camacho Susp [Maalox Susp] Med 10/25/24 06:35 Discontinued 30 ml PO X1 ONE Vital Signs Vital signs: Vital Signs Temperature 100.4 F 10/25/24 05:56 Pulse Rate 98 10/25/24 05:56 Respiratory Rate 17 10/25/24 05:56 Blood Pressure 160/75 H 10/25/24 05:56 Pulse Oximetry (%) 97 10/25/24 05:56 Oxygen Delivery Method Room Air 10/25/24 05:56 Discharge Plan Plan Patient Disposition: Admit Acute Care w/in Hospital Problem List Clinical Impression: Acute pancreatitis, Leukocytosis, Acute hypotension MDM Narrative [facility] hospital course: I, Ema Miller am scribing for and in the presence of Dr. Gutierrez. Patient 84-year-old with a history of pancreatitis in the past and was admitted this past March 2024 comes in again with abdominal pain lipase is quite high she is tachycardic and appears quite ill. Lactic acid came back elevated. Rectal temp reveals a fever 102.4 and because of that a septic alert was called at approximately 11 this morning. Vanco and Zosyn have been added to cover for possible sepsis fulminant pancreatitis is concerning with a white count of 14.1 lactic acid of 6.7. And her blood pressure has been trending to a lower range. Fortunately the initial pH is 7.39 and therefore is not acidotic. At this time we will give antibiotics fluid bolus MRCP is ordered and pending at this time and a disposition will be made once we get the MRCP results. MRCP came back with no choledocholithiasis. So patient be admitted here for acute pancreatitis. Hospitalist called and they will admit. Patient is quite sick and the blood pressure was trending to the upper 90s low 100s. And not surprised this patient be upgraded to an ICU admit. Clinical Information Provided by patient and family Medical Records Reviewed [facility] Meds/Rx Considered, not Ordered None Labs/Rad/Tests considered, not Ordered None Chronic Illness/Social Conditions Add or document further as needed: Pancreatitis, hypertension, diabetes, arthritis, and osteoporosis. Lab Interpretation Labs: see narrative above Imaging Imaging interpretation: see narrative above Radiology reports / interpretation(s): Procedure(s): CT abdomen pelvis wo con Accession Number(s): [id number] cc: Fidencio Thompson; Cleveland Dorantes MD; NO PRIMARY/FAMILY,PHYSICIAN~ Examination: CT abdomen and pelvis without contrast. Coronal 3-D reconstructions. Sagittal 2-D reconstructions. Date and time of exam:October 25, 2024 1023 hours Comparison April 13, 2024 INDICATIONS: Onset right upper abdominal pain today CTDI: vol (mGy): 11 DLP: (mGycm): 589 Technique: Axial images of the abdomen have been obtained, 3 mm slice thickness Intravenous contrast material has not been administered. Low dose protocols were performed. One or more of the following dose reduction techniques were used; automated exposure control, adjustment of the mA and/or KV according to patient size, use of iterative reconstruction technique. Findings: Fluid-filled distal esophagus No focal liver or splenic lesions Absent gallbladder Suspicious for mild edema around the pancreas 6 cm left renal cyst No renal or ureteral calculi, no hydronephrosis Normal appendix No bowel obstruction No diverticulitis Atrophic uterus No bladder mass Total left hip arthroplasty Advanced narrowing right hip joint IMPRESSION: Fluid filled lower esophagus, consider reflux esophagitis Suspicious for acute pancreatitis, consider MRCP follow-up Dictated By: Cleveland Dorantes MD Procedure(s): MR MRCP Accession Number(s): [id number] cc: Matthew Gutierrez MD; Cleveland Dorantes MD; NO PRIMARY/FAMILY,PHYSICIAN~ MRI abdomen, without contrast. MRCP Date and time of exam: October 25, 2024 1150 hours Comparison April 16, 2024 INDICATIONS: Elevated transaminase liver function tests on laboratory examination today, fever abdominal pain and distention vomiting 3 days, also elevated bilirubin Technique: Multiple axial and coronal images of the abdomen have been obtained with the Siemens 1.5T MRI scanner. Images obtained included T1 weighted transverse images, T2-weighted transverse images, T2-weighted transverse images fat-suppressed, T2 weighted haste fat suppressed transverse images, T1 weighted images, in and out of phase images, T2-weighted coronal images, breath hold, T2 weighted haze coronal images as well as T2 weighted coronal thick slab images, MRCP. Findings: Hepatomegaly 18 cm Absent gallbladder Common hepatic common bile duct 4 mm no stones Edema around and especially below the pancreas extending into the lower abdomen 6.2 cm left renal cyst Minimal perinephric stranding Aorta normal size No splenomegaly IMPRESSION: Moderate hepatomegaly Absent gallbladder No common hepatic or common bile duct stones Pancreatitis, no pseudocyst Dictated By: Cleveland Dorantes MD Medication Administration(s) Medication Administration History Heparin Sodium (Porcine) (Heparin Sod Inj 5000 Unit/Ml Vial) 5,000 unit SC Q8HR TRACEE Stop: 11/08/24 17:44 Last Admin: 10/25/24 18:22 Dose: 5,000 unit Documented By: AA Co-signed By: ISHAAN Hydromorphone HCl (Hydromorphone Inj 2 Mg/Ml Vial) 0.2 mg IVP Q4HR PRN PRN Reason: PAIN Stop: 10/30/24 17:36 Lactated Ringer's (Lactated Ringers) 1,000 mls @ 150 mls/hr IV .Q6H40M TRACEE Stop: 11/24/24 20:04 Pantoprazole Sodium (Pantoprazole Inj 40 Mg Vial) 40 mg IVP QDAY TRACEE Stop: 11/24/24 17:44 Last Admin: 10/25/24 18:18 Dose: 40 mg Documented By: AA Discontinued Medications Al Hydrox/Mg Hydrox/Simethicone (Mg Hyd/Al Hyd/Camacho (Maalox Reg) Susp 30 Ml Udc) 30 ml PO X1 ONE Stop: 10/25/24 06:36 Last Admin: 10/25/24 07:52 Dose: 30 ml Documented By: RONI Sodium Chloride (Ns) 1,000 mls @ 150 mls/hr IV .Q6H40M ONE Stop: 10/25/24 16:40 Last Admin: 10/25/24 14:19 Dose: Not Given Documented By: PRIMO Non-Admin Reason: Duplicate Medication on eMAR Sodium Chloride (Ns) 1,000 mls @ 999 mls/hr IV .Q1H1M ONE Stop: 10/25/24 11:01 Last Infusion: 10/25/24 11:42 Dose: Infused Documented By: Admin: 10/25/24 10:41 Dose: 999 mls/hr Documented By: BLOSSOM Vancomycin/Sodium Chloride (Vancomycin/Ns 1 Gm Ivpb) 200 mls @ 120 mls/hr IV X1 ONE Stop: 10/25/24 13:28 Last Infusion: 10/25/24 14:30 Dose: Infused Documented By: Admin: 10/25/24 12:58 Dose: 120 mls/hr Documented By: PRIMO Piperacillin/Tazobactam/Dextrose (Zosyn) 3.375 gm in 50 mls @ 100 mls/hr IV X1 ONE Stop: 10/25/24 12:17 Last Infusion: 10/25/24 12:58 Dose: Infused Documented By: Admin: 10/25/24 12:28 Dose: 100 mls/hr Documented By: PRIMO Sodium Chloride (Ns) 1,000 mls @ 150 mls/hr IV .Q6H40M ONE Stop: 10/25/24 18:29 Last Admin: 10/25/24 14:16 Dose: 150 mls/hr Documented By: PRIMO Sodium Chloride (Ns) 1,000 mls @ 999 mls/hr IV .Q1H1M ONE Stop: 10/25/24 12:50 Last Infusion: 10/25/24 14:18 Dose: Infused Documented By: Admin: 10/25/24 12:28 Dose: 999 mls/hr Documented By: PRIMO Lactated Ringer's (Lactated Ringers) 500 mls @ 999 mls/hr IV .Q31M ONE Stop: 10/25/24 20:35 Ondansetron HCl (Ondansetron Odt 4 Mg Tabrap) 4 mg PO X1 ONE; Protocol Stop: 10/25/24 06:36 Last Admin: 10/25/24 07:51 Dose: 4 mg Documented By: RONI Diagnosis Differential diagnosis: pancreatitis, cholecystitis, peptic ulcers
--- NOTE | 2024-10-25 10:29 | PC.NURSE ---
Patient to CT via [facility]
[2024-10-25] MEDS: SODIUM CHLORIDE 0.9% 1000 ML 1,000 ML 999 ML IV ×2 (10:41→12:28)
[2024-10-25 10:59] LABS: Base Excess, Venous -1 (-3-3); O2 Saturation, Venous 75 % (96-97); PCO2, Venous 40 mmHg (36-56); PO2, Venous 40 mmHg (15-58); pH, Venous 7.39 (7.33-7.66)
[2024-10-25 11:05] LABS: Lactate (Lactic Acid) 6.7 mMol/L (0.4-2.0)
--- NOTE | 2024-10-25 11:50 | PC.NURSE ---
Patient to MRI via gurney with transport at side.
--- NOTE | 2024-10-25 12:00 | PC.NURSE ---
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
[2024-10-25] MEDS: PIPER/TAZO 3.375 GM PREMIX 3.375 GM/50 ML BAG IV (12:28)
[2024-10-25] MEDS: VANCOMYCIN/NS 1 GM IVPB 200 ML IV (12:58)
[2024-10-25 13:56] LABS: Reflex Lactate? Y
[2024-10-25] MEDS: SODIUM CHLORIDE 0.9% 1000 ML 1,000 ML 150 ML IV (14:16)
[2024-10-25 14:22] LABS: Lactic Acid, 3 HR 4.7 mMol/L (0.4-2.0)
--- NOTE | 2024-10-25 16:45 | PC.NURSE ---
@ this time patient is currently sleeping, no apparent distress noted. Patient has been alert and oriented all day, patient verbalizes needs. Patient denies vomiting now. Patient call light within reach.
--- NOTE | 2024-10-25 17:27 | PC.NURSE ---
Dr Lau at bedside evaluating patient.
[2024-10-25] MEDS: PANTOPRAZOLE INJ 40 MG VIAL IVP (18:18)
[2024-10-25] MEDS: HEPARIN SOD INJ 5000 UNIT/ML VIAL SC ×2 (18:22→22:18)
[2024-10-25 19:11] LABS: Ammonia 30 uMol/L (11-32)
[2024-10-25 19:15] LABS: Acetaminophen 2.7 mcg/mL (10.0-20.0); Salicylate < 3.0 mg/dL
[2024-10-25 19:51] LABS: Hepatitis A Antibody IgM Non Reactive (Non React); Hepatitis B Core Antibody IgM Non Reactive (Non React); Hepatitis B Surface Antigen Non Reactive (Non React); Hepatitis C Antibody Non Reactive (Non React)
--- NOTE | 2024-10-25 20:08 | PD.RESHP ---
Documentation for date of: 10/25/24 HPI History of Present Illness Chief complaint: Abdominal pain and Vomiting History of present illness: HPI: Patient is Colombian-speaking and history facilitated by registered healthcare junior assistant manager. Daughter was at bedside Patient is a 84-year-old female with past medical history significant for primary hypertension, hyperlipidemia, rbt-iocfeni-zqcxncojb mellitus type II, atrial fibrillation on Eliquis, multiple episodes of pancreatitis requiring hospitalization presented with a chief complaint of abdominal pain and vomiting. Called to the patient at 2 AM this morning she woke up with severe epigastric abdominal pain and had multiple episodes of vomiting to many to count. Endorsed clear liquid and food contents, denied any hematemesis, coffee-ground emesis, bile emesis. Described epigastric abdominal pain as 10/10 and she subsequently presented to the ED. Denies any fever, diarrhea, sick contacts and recent travel. Of note 3 weeks ago patient had a fall and injured her left foot, she she visited the ED and x-rays ruled out any fracture. After that she took acetaminophen 500 Mg p.o. 3 times daily for 3 days followed by ibuprofen as needed. Denies any recent antibiotic use, alcohol, being bitten by any snakes and recreational drug use. ED course: BP 116/69, pulse 96, RR 24, SpO2 96% on room air. Labs showed WBC 14.1, lactic acid 4.7, T. bili 3.2, AST 956, ALT 578, ALP 270, lipase >3500 CT abdomen pelvis showed fluid-filled distal esophagus and edema around the pancreas. MRCP significant for hepatomegaly, no signs of obstruction of biliary tree. Edema around the pancreas and minimal perinephric stranding. In the ED patient received ondansetron 4 Mg p.o. x 1, Maalox 30 mL p.o. x 1, normal saline 2L IVF bolus, Zosyn 3.375 g IV x 1 and vancomycin 1 g IV x 1. Patient will be admitted to the ICU for treatment and management of acute liver injury and pancreatitis Review of Systems Review of Systems Narrative Review of Systems: GENERAL: Denies fever/chills or diaphoresis. HEENT: Denies headaches or visual changes. Denies discharge. Neuro: Denies unusual weakness or difficulty speaking. CARDIO: Denies chest pain or palpitations. PULM: Denies SOB, coughing or wheezing. GI: As above URO: Denies burning/itching/pain/urinary changes. MSK/EXT/SKIN: Denies joint/skeletal/muscle pain, issues/changes in upper or lower extremities, itchiness, or superficial pain. PSYCH: Cooperative, pleasant mood & affect. The rest of the review of systems is otherwise negative. Past Medical History Past Medical History Comments PMH COMMENT: Past medical history: Atrial fibrillation on Eliquis Primary hypertension Qtb-alaepck-oeocgcxhb diabetes mellitus type 2 Hyperlipidemia History of multiple episodes of pancreatitis Medication list: Eliquis 5 Mg p.o. twice daily Atorvastatin 10 Mg p.o. 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 Marital Status: . Has 9 kids Tobacco use: Denies ETHO use: Denies Illicit drug use: Denies Social History Note: lives with Family History: No significant history Exam Vital Signs Temp Pulse Resp BP Pulse Ox O2 Del Method O2 Flow Rate 98.2 F 89 18 103/54 L 94 L Nasal Cannula 2 10/25/24 19:48 10/25/24 19:48 10/25/24 19:48 10/25/24 19:48 10/25/24 19:48 10/25/24 19:48 10/25/24 19:48 Narrative Exam Constitutional Alert, oriented x 3 and comfortable. Jaundice, negative scleral icterus, mucous membranes pink and moist. Elderly female HEENT Vision grossly intact. Patent nares. Trachea midline Respiratory Chest normal on inspection and decreased air entry at posterior chest wall with crackles at bases. Cardiovascular S1 and S2 audible, RRR. No murmurs carotid bruit. No gross JVD. Abdominal Mildly distended, obese, tender to palpation in the epigastrium. Guarding and rebound tenderness present. Genitourinary No bladder tenderness, no flank pain. Normal to palpation Musculoskeletal Extremities tone within normal limits. Varicose veins noted on bilateral legs. Left leg appears Larger than the right. Ecchymosis noted on dorsal aspect of right foot Neurological CN II - XII grossly intact. Extremity motor and sensation grossly intact. Skin Warm, dry and intact. No apparent lesions. Psychiatric Patient has good affect, is cooperative Results: Labs 10/25/24 07:33 10/25/24 07:33 Labs: Short CBC 10/25/24 Range/Units 07:33 WBC 14.1 H (3.6-11.0) Thou/mm3 Hgb 13.9 (12.0-16.0) g/dL Hct 40.0 (36.0-46.0) % Plt Count 335 (140-440) Thou/mm3 BMP 10/25/24 07:33 Sodium 139 Potassium 3.9 Chloride 100 Carbon Dioxide 22.0 BUN 15 Creatinine 0.8 Glucose 232 H Calcium 9.1 Liver Function 10/25/24 Range/Units 07:33 Total Bilirubin 3.2 H (0.3-1.2) mg/dL AST 956 H* (0-34) U/L ALT 578 H* (10-49) U/L Alkaline Phosphatase 270 H (46-116) U/L Albumin 4.6 (3.4-4.8) gm/dL Urine 10/25/24 Range/Units 07:32 Urine Color Lt-Yellow (Lt Yel-Yel) Urine Clarity Clear (Clear/Hazy) Urine pH 7.0 (5.0-7.0) Ur Specific [place] 1.008 (1.001-1.035) Urine Protein Negative (Neg - Trace) Urine Glucose (UA) Negative (Negative) ABG Interpretation ABG results: 10/25/24 10:45 VBG pH 7.39 VBG pCO2 40 VBG pO2 40 VBG Base Excess -1 Quality Measures Quality Measures none Advance care planning discussed with:: patient Medications Home Medications and Allergies Home Medications ?Medication ?Instructions ?Recorded ?Confirmed ?Type atorvastatin 10 mg tablet 10 mg PO QPM 11/10/20 10/09/23 History apixaban 5 mg tablet (Eliquis) 5 mg PO BID 06/20/23 10/09/23 History Allergies Allergy/AdvReac Type Severity Reaction Status Date / Time No Known Allergies Allergy Verified 10/25/24 05:40 Visit Medications Heparin Sodium (Porcine) (Heparin Sod Inj 5000 Unit/Ml Vial) 5,000 unit SC Q8HR TRACEE Stop: 11/08/24 17:44 Last Admin: 10/25/24 18:22 Dose: 5,000 unit Hydromorphone HCl (Hydromorphone Inj 2 Mg/Ml Vial) 0.2 mg IVP Q4HR PRN PRN Reason: PAIN Stop: 10/30/24 17:36 Lactated Ringer's (Lactated Ringers) 500 mls @ 999 mls/hr IV .Q31M ONE Stop: 10/25/24 20:35 Lactated Ringer's (Lactated Ringers) 1,000 mls @ 150 mls/hr IV .Q6H40M TRACEE Stop: 11/24/24 20:04 Pantoprazole Sodium (Pantoprazole Inj 40 Mg Vial) 40 mg IVP QDAY TRACEE Stop: 11/24/24 17:44 Last Admin: 10/25/24 18:18 Dose: 40 mg Discontinued Medications Al Hydrox/Mg Hydrox/Simethicone (Mg Hyd/Al Hyd/Camacho (Maalox Reg) Susp 30 Ml Udc) 30 ml PO X1 ONE Stop: 10/25/24 06:36 Last Admin: 10/25/24 07:52 Dose: 30 ml Sodium Chloride (Ns) 1,000 mls @ 150 mls/hr IV .Q6H40M ONE Stop: 10/25/24 16:40 Last Admin: 10/25/24 14:19 Dose: Not Given Sodium Chloride (Ns) 1,000 mls @ 999 mls/hr IV .Q1H1M ONE Stop: 10/25/24 11:01 Last Infusion: 10/25/24 11:42 Dose: Infused Vancomycin/Sodium Chloride (Vancomycin/Ns 1 Gm Ivpb) 200 mls @ 120 mls/hr IV X1 ONE Stop: 10/25/24 13:28 Last Infusion: 10/25/24 14:30 Dose: Infused Piperacillin/Tazobactam/Dextrose (Zosyn) 3.375 gm in 50 mls @ 100 mls/hr IV X1 ONE Stop: 10/25/24 12:17 Last Infusion: 10/25/24 12:58 Dose: Infused Sodium Chloride (Ns) 1,000 mls @ 150 mls/hr IV .Q6H40M ONE Stop: 10/25/24 18:29 Last Admin: 10/25/24 14:16 Dose: 150 mls/hr Sodium Chloride (Ns) 1,000 mls @ 999 mls/hr IV .Q1H1M ONE Stop: 10/25/24 12:50 Last Infusion: 10/25/24 14:18 Dose: Infused Ondansetron HCl (Ondansetron Odt 4 Mg Tabrap) 4 mg PO X1 ONE; Protocol Stop: 10/25/24 06:36 Last Admin: 10/25/24 07:51 Dose: 4 mg Assessment & Plan Plan Patient is a 84-year-old female with past medical history significant for primary hypertension, hyperlipidemia, rfe-btgespw-jinytttur mellitus type II, atrial fibrillation on Eliquis, multiple episodes of pancreatitis requiring hospitalization presented with a chief complaint of abdominal pain and vomiting. Patient will be admitted to the ICU for treatment and management of acute liver injury and pancreatitis NEURO No acute problems CVS Primary HTN Rx: Antihypertensives on hold due to normotension Atrial fibrillation on eliquis [id number] Rx: Telemetry monitoring, Eliquis on hold for now, will keep K >4 and Mg >2. PULM No acute problems GI/Hep Acute Pancreatitis Etiology: Previous pancreatitis, high fat diet, infectious Dx: Lipase >3500, lactic acid 4.7 Rx: Lactated Ringer's IV fluids, pain control with Dilaudid IV, blood and urine cultures RRX: Follow-up on cultures Acute liver injury DDx: Medication side effect, infection, viral hepatitis Dx: AST 956, T. bili 3.2, ALT 578, ALP 270 Rx: Follow-up on CMP RENAL Lactic acidosis, likely type B Dx: Lactic acid 6.7---> 4.7 . Most likely secondary to pancreatitis Rx: Trend lactic acid, lactated Ringer's 500 cc IVF bolus HEME/ONC Leukocytosis DDx: reactive Dx: WBC 14.1 Rx: Follow-up on CBC ENDO T2 IDDM Rx: Insulin sliding scale Q6 hourly ID No active problems MSK/DERM No active problems ICU Health maintenance: Dispo: Admit to ICU for acute pancreatitis Diet: N.p.o. DVT ppx: Heparin GI ppx: Pantoprazole 40 Mg IV daily Mechanical ventilattion: No Sedation: None IV lines: 2 pIV Central line: No Arterial line: No Self: No Code status: DNR Plan of care discussed with Attending Dr. Hernandez and PGY 3 Dr. Robyn Brumfield MD PGY 1 Disclaimer: This note was dictated by speech recognition. Minor errors in membership administrator may be present due to voice recognition software.
[2024-10-25 20:48] LABS: Lactate (Lactic Acid) 2.5 mMol/L (0.4-2.0)
[2024-10-25] MEDS: RINGERS LACTATED 500 ML 500 ML 999 ML IV (20:54)
[2024-10-25 21:30] LABS: Alanine Aminotransferase 480 U/L (10-49); Albumin, Serum 3.5 gm/dL (3.4-4.8); Albumin/Globulin Ratio 1.8 (1.2-2.2); Alkaline Phosphatase 216 U/L (46-116); Anion Gap 14 (7-16); BUN/Creatinine Ratio 21 Ratio (12-20); Bilirubin,Total 4.4 mg/dL (0.3-1.2); Blood Urea Nitrogen 17 mg/dL (9-23); Calcium (Corrected) 8.4 mg/dL (8.5-10.1); Carbon Dioxide 23.5 mMol/L (20.0-31.0); Chloride 108 mMol/L (98-107); Creatinine (Component) 0.8 mg/dL (0.6-1.3); Estimated Creatinine Clearance 48.9 mL/min (>60); Globulin 1.9 gm/dL (2.3-3.5); Glucose 171 mg/dL (74-106); Osmolality,Calculated 294 (275-295); Sodium 145 mMol/L (136-145); Total Protein 5.4 gm/dL (5.7-8.2); eGFR > 60 See Note
[2024-10-25] MEDS: RINGERS LACTATED 1000 ML 1,000 ML 150 ML IV (21:30)
[2024-10-25 21:43] LABS: Reflex Lactate? Y
[2024-10-25 23:45] LABS: Reflex Lactate? Y
[2024-10-25] MEDS: INSULIN LISPRO (AdmeLOG) 1 UNIT/0.01 ML UNIT SC (23:45)
[2024-10-25 23:57] LABS: Lactic Acid, 3 HR 1.8 mMol/L (0.4-2.0)
[2024-10-26] VITALS (57 sets, daily range): BP systolic 95–144; BP diastolic 46–84; PULSE 65–92; RESP 17–34; TEMP 36.9–37.1; O2SAT 91–96; BMI 32.8
[2024-10-26] MEDS: RINGERS LACTATED 1000 ML 1,000 ML 150 ML IV ×2 (02:16→08:38)
[2024-10-26] MEDS: HEPARIN SOD INJ 5000 UNIT/ML VIAL SC ×2 (05:40→13:39)
[2024-10-26 06:31] LABS: Phosphorous 3.3 mg/dL (2.4-5.1)
[2024-10-26] MEDS: PANTOPRAZOLE INJ 40 MG VIAL IVP (08:37)
[2024-10-26 09:12] LABS: INR 1.2 (0.9-1.3); Prothrombin Time 13.3 Seconds (9.0-12.2)
--- NOTE | 2024-10-26 10:36 | ESPR_ITS ---
Documentation for date of: 10/26/24 Subjective Subjective Interval history: Patient is Martiniquais-speaking and history facilitated by registered healthcare template cutter. Daughter was at bedside Patient is a 84-year-old female with past medical history significant for primary hypertension, hyperlipidemia, rid-vjauycc-cvvcldjgk mellitus type II, atrial fibrillation on Eliquis, multiple episodes of pancreatitis requiring hospitalization presented with a chief complaint of abdominal pain and vomiting. Called to the patient at 2 AM this morning she woke up with severe epigastric abdominal pain and had multiple episodes of vomiting to many to count. Endorsed clear liquid and food contents, denied any hematemesis, coffee-ground emesis, bile emesis. Described epigastric abdominal pain as 10/10 and she subsequently presented to the ED. Denies any fever, diarrhea, sick contacts and recent travel. Of note 3 weeks ago patient had a fall and injured her left foot, she she visited the ED and x-rays ruled out any fracture. After that she took acetaminophen 500 Mg p.o. 3 times daily for 3 days followed by ibuprofen as needed. Denies any recent antibiotic use, alcohol, being bitten by any snakes and recreational drug use. ED course: BP 116/69, pulse 96, RR 24, SpO2 96% on room air. Labs showed WBC 14.1, lactic acid 4.7, T. bili 3.2, AST 956, ALT 578, ALP 270, lipase >3500 CT abdomen pelvis showed fluid-filled distal esophagus and edema around the pancreas. MRCP significant for hepatomegaly, no signs of obstruction of biliary tree. Edema around the pancreas and minimal perinephric stranding. In the ED patient received ondansetron 4 Mg p.o. x 1, Maalox 30 mL p.o. x 1, normal saline 2L IVF bolus, Zosyn 3.375 g IV x 1 and vancomycin 1 g IV x 1. Patient will be admitted to the ICU for treatment and management of acute liver injury and pancreatitis 10/26/24: Patient seen and examined today in the ICU. Patient is doing well. Feels better, Epigastric pain has improved. No episodes of emisis over night. Hemodynamics are stable. Good urine output and mentation is at baseline. Patient is tolerating PO intake. Family were at bedside early, we discussed here case, all questions and concerns were addressed at bedside. Patent will be downgraded today. Labs, vitals and imaging were reviewed and discussed with attending. Exam Vital Signs Temp Pulse Resp BP Pulse Ox O2 Del Method O2 Flow Rate 98.4 F 78 24 H 115/56 L 95 Nasal Cannula 3 10/26/24 04:00 10/26/24 06:00 10/26/24 06:00 10/26/24 06:00 10/26/24 06:00 10/26/24 05:00 10/26/24 05:00 Narrative Exam Constitutional Alert, oriented x 3 and comfortable. Jaundice, negative scleral icterus, mucous membranes pink and moist. Elderly female HEENT Vision grossly intact. Patent nares. Trachea midline Respiratory Chest normal on inspection and improved decreased air entry at posterior chest wall with crackles at bases. Cardiovascular S1 and S2 audible, RRR. No murmurs carotid bruit. No gross JVD. Abdominal Mildly distended, obese, tender to palpation in the epigastrium. Guarding and rebound tenderness present. Genitourinary No bladder tenderness, no flank pain. Normal to palpation Musculoskeletal Extremities tone within normal limits. Varicose veins noted on bilateral legs. Left leg appears Larger than the right. Ecchymosis noted on dorsal aspect of right foot Neurological CN II - XII grossly intact. Extremity motor and sensation grossly intact. Skin Warm, dry and intact. No apparent lesions. Psychiatric Patient has good affect, is cooperative Objective Labs 10/27/24 04:47 10/27/24 04:47 Labs: Laboratory Results - last 24 hr 10/25/24 10/25/24 10/25/24 10:45 14:16 18:25 PT INR VBG pH 7.39 VBG pCO2 40 VBG pO2 40 VBG O2 Sat (Donell) 75 L VBG Base Excess -1 Sodium Potassium Chloride Carbon Dioxide Anion Gap BUN Creatinine Estim Creat Clear Calc eGFR BUN/Creatinine Ratio Glucose Calculated Osmolality Lactic Acid 6.7 H* 4.7 H* 4.0 H Calcium Corrected Calcium Phosphorus Magnesium Total Bilirubin ALT Alkaline Phosphatase Ammonia 30 Total Protein Albumin Globulin Albumin/Globulin Ratio Salicylates < 3.0 Acetaminophen 2.7 L Hepatitis A IgM Ab Non Reactive Hep Bs Antigen Non Reactive Hep B Core IgM Ab Non Reactive Hepatitis C Antibody Non Reactive 10/25/24 10/25/24 10/26/24 20:40 23:47 04:36 PT INR VBG pH VBG pCO2 VBG pO2 VBG O2 Sat (Donell) VBG Base Excess Sodium 145 Potassium 4.0 Chloride 108 H Carbon Dioxide 23.5 Anion Gap 14 BUN 17 Creatinine 0.8 Estim Creat Clear Calc 48.9 L eGFR > 60 BUN/Creatinine Ratio 21 H Glucose 171 H D Calculated Osmolality 294 Lactic Acid 2.5 H 1.8 Calcium 8.0 L Corrected Calcium 8.4 L Phosphorus 3.3 Magnesium 2.0 Total Bilirubin 4.4 H D ALT 480 H Alkaline Phosphatase 216 H D Ammonia Total Protein 5.4 L Albumin 3.5 D Globulin 1.9 L Albumin/Globulin Ratio 1.8 Salicylates Acetaminophen Hepatitis A IgM Ab Hep Bs Antigen Hep B Core IgM Ab Hepatitis C Antibody 10/26/24 08:50 PT 13.3 H INR 1.2 VBG pH VBG pCO2 VBG pO2 VBG O2 Sat (Donell) VBG Base Excess Sodium Potassium Chloride Carbon Dioxide Anion Gap BUN Creatinine Estim Creat Clear Calc eGFR BUN/Creatinine Ratio Glucose Calculated Osmolality Lactic Acid Calcium Corrected Calcium Phosphorus Magnesium Total Bilirubin ALT Alkaline Phosphatase Ammonia Total Protein Albumin Globulin Albumin/Globulin Ratio Salicylates Acetaminophen Hepatitis A IgM Ab Hep Bs Antigen Hep B Core IgM Ab Hepatitis C Antibody ABG Interpretation ABG results: 10/25/24 10:45 VBG pH 7.39 VBG pCO2 40 VBG pO2 40 VBG Base Excess -1 Quality Measures Quality Measures none Advance care planning discussed with:: patient Assessment & Plan Assessment Current Active Medications: Generic Name Dose Route Start Last Admin Trade Name Freq PRN Reason Stop Dose Admin Dextrose 50 ml 10/25/24 21:00 Dextrose 50%-Water Inj 50 Ml Syringe IV 11/24/24 20:59 Q15MIN PRN BG <50 OR BG <70 & pt unresponsive Glucagon 1 mg 10/25/24 21:00 Glucagon Inj 1 Mg Vial IM Q15MIN PRN BG <70, and no IV access Heparin Sodium (Porcine) 5,000 unit 10/25/24 17:45 10/26/24 05:40 Heparin Sod Inj 5000 Unit/Ml Vial SC 11/08/24 17:44 5,000 unit Q8HR TRACEE Administration Hydromorphone HCl 0.2 mg 10/25/24 17:37 Hydromorphone Inj 2 Mg/Ml Vial IVP 10/30/24 17:36 Q4HR PRN PAIN Lactated Ringer's 1,000 mls @ 150 mls/hr 10/25/24 20:05 06/07/25 08:38 Lactated Ringers IV 11/24/24 20:04 150 mls/hr .Q6H40M TRACEE Administration Piperacillin/Tazobactam/Dextrose 3.375 gm in 50 mls @ 12.5 mls/hr 10/26/24 09:53 Zosyn IV 11/02/24 09:52 Q8HR TRACEE Protocol Insulin Human Lispro 0 unit 10/26/24 00:00 10/26/24 06:29 Insulin Lispro (Admelog) 1 Unit/0.01 Ml Unit SC 11/25/24 00:00 Not Given Q6HR TRACEE Protocol Pantoprazole Sodium 40 mg 10/25/24 17:45 10/26/24 08:37 Pantoprazole Inj 40 Mg Vial IVP 11/24/24 17:44 40 mg QDAY TRACEE Administration Plan Patient is a 84-year-old female with past medical history significant for primary hypertension, hyperlipidemia, mtz-bbcrdpo-tolfsccuf mellitus type II, atrial fibrillation on Eliquis, multiple episodes of pancreatitis requiring hospitalization presented with a chief complaint of abdominal pain and vomiting. Patient will be admitted to the ICU for treatment and management of acute liver injury and pancreatitis NEURO No acute problems CVS Primary HTN Plan: Antihypertensives on hold due to normotension Atrial fibrillation on eliquis [id number] Plan: Telemetry monitoring, Eliquis on hold for now, will keep K >4 and Mg >2. PULM No acute problems GI/Hep Acute Pancreatitis, improving Etiology: Previous pancreatitis, high fat diet, infectious Dx: Lipase >3500, lactic acid 4.7 Plan: Lactated Ringer's IV fluids, pain control with Dilaudid IV, blood and urine cultures, PO diet Acute liver injury DDx: Medication side effect, infection, viral hepatitis Dx: AST 956, T. bili 3.2, ALT 578, ALP 270 Plan: Follow-up on CMP RENAL Lactic acidosis, likely type B Dx: Lactic acid 6.7---> 4.7 . Most likely secondary to pancreatitis Plan: Trend lactic acid, lactated Ringer's 500 cc IVF bolus HEME/ONC Leukocytosis DDx: reactive 2/2 to pancreatitis Plan: Follow-up on CBC ENDO T2 IDDM Rx: Insulin sliding scale Q6 hourly ID No active problems MSK/DERM No active problems ICU Health maintenance: Dispo: Admit to ICU for acute pancreatitis Diet: N.p.o. DVT ppx: Heparin GI ppx: Pantoprazole 40 Mg IV daily Mechanical ventilattion: No Sedation: None IV lines: 2 pIV Central line: No Arterial line: No Self: No Code status: DNR - Patient's care was discussed with my attending physician, Dr. Daivd Carlson MD Internal Medicine PGY-3 Attending Provider Attestation/Addendum pt seen and examined with resident, agree with above. In brief this is a84yo F admitted for pancreatitis to the ICU with elevated LA. Overnight she has improved and is feeling better. on exam there is some residual abd pain but better than yesterday. She is awake alert and interactive. LCTAB, HRRR, min edema. She is currently stable for downgrade. She has had fq admits for pancreatitis case d/w ICU team labs, imaging, records reviewed ~35min required for eval, exam, review, intervention, discussion and formulation of POC for this acutely ill pt
[2024-10-26] MEDS: PIPER/TAZO 3.375 GM PREMIX 3.375 GM/50 ML BAG IV ×2 (10:50→21:36)
[2024-10-26 12:01] LABS: Basophils # (Auto) 0.1 Thou/mm3 (0.0-0.2); Basophils % (Auto) 0 % (0-2.5); Eosinophils % (Auto) 0 % (0-10); Immature Granulocytes % (Auto) 2 % (0-0); Immature Granulocytes Auto 0.49 Thou/mm3 (0.00-0.00); Lymphocytes # (Auto) 1.1 Thou/mm3 (1.0-4.8); Lymphocytes % (Auto) 5 % (10-50); Mean Corpuscular HGB Conc 34.4 g/dl (31.0-37.0); Mean Corpuscular Hemoglobin 31.3 pg (25.0-35.0); Mean Corpuscular Volume 91 fL (80-100); Monocytes # (Auto) 0.9 Thou/mm3 (0.0-0.8); Monocytes % (Auto) 4 % (0-12); Neutrophils # (Auto) 20.7 Thou/mm3 (1.8-7.7); Neutrophils % (Auto) 89 % (37-80); Nucleated Red Blood Cell % 0 /100 WBC (0); Platelet Count 246 Thou/mm3 (140-440); RDW Standard Deviation 50.4 fL (36.4-46.3); Red Blood Count 3.51 Miln/mm3 (4.00-5.20); White Blood Count 23.2 Thou/mm3 (3.6-11.0)
--- NOTE | 2024-10-26 12:49 | PC.SS ---
Eliza Murphy is 84 year old female admitted to ICU for Abute Liver Failure. SS conducted bedside contact with the patient to complete initial assessment and to discuss discharge planning.? SW used all precautionary measures to complete initial. Role and reason for the contact was explained to Eliza. Pt is alert and oriented times 4. Medical team assisted with translation. Patient confirmed demographic information lives with spouse and extended family live in same location. Patient identifies Wilson Lyn, spouse, as her surrogate decision maker. Pt states prior to hospitalization she is able to complete ADL?s independently. Pt does not have DME equiptment and does not use O2. If pt still on O2 at discharge O2 will need to be ordered. Pt confirmed no history of mental health or substance abuse. Pts PCP is Juan Banegas. Pharmacy [facility] choice [facility]. [facility] life Directive discussed; pt not receptive. Discharge options discussed and the pt return home. Family will provide transportation upon DC. No further intervention required at this time, social work supervisor would be available to address any further concerns. DC Plan: Home Contact: Wilson Lyn, spouse, Address: Confirmed on face sheet PCP: Juan Banegas
--- NOTE | 2024-10-26 12:51 | PC.SS ---
SS spoke to dtr, Kim, daughter, to provide telephone number for pt spouse, Wilson as he is decision maker; Wilsonfredrick Lyn, spouse,
--- NOTE | 2024-10-26 14:59 | PD.RESPRO ---
Documentation for date of: 10/26/24 Subjective Subjective Interval history: Patient is an ICU downgrade. Patient seen and examined in ICU. Patient endorses to feeling significantly better and resolution of her epigastric and abdominal pain. Patient states she only has mild tenderness on palpation but otherwise she at rest she does not have any pain. She is currently tolerating full liquid diet and denies any nausea or vomiting. Labs and vitals are reviewed and improving. Patient has no other complaints. Exam Vital Signs Temp Pulse Resp BP Pulse Ox O2 Del Method O2 Flow Rate 98.8 F 80 29 H 109/55 L 96 Nasal Cannula 3 10/26/24 12:00 10/26/24 14:30 10/26/24 14:30 10/26/24 14:30 10/26/24 14:30 10/26/24 12:00 10/26/24 12:00 Narrative Exam GENERAL: A&Ox3 elderly female, Awake and cooperative, Not in acute distress NEURO: no focal neurological deficits noted, baseline mentation HEENT: Atraumatic, Normocephalic. mucous membranes moist. Eyes open, symmetrical, & clear HEART: Normal Heart Sounds LUNGS: Clear to auscultation with no wheezing or crackles. ABDOMEN: soft, non-distended, non-tender, bowel sounds heard, no guarding or rebound tenderness SKIN: No Rash, venous insufficiency noted bilaterally on LE, some bruising on left foot from fall EXTREMITIES: No edema, tenderness, able to move all 4 extremities, pedal pulses palpated Objective Labs 10/27/24 04:47 10/27/24 04:47 Labs: Laboratory Results - last 24 hr 10/25/24 10/25/24 10/25/24 18:25 20:40 23:47 WBC RBC Hgb Hct MCV MCH MCHC RDW Std Deviation Plt Count Neut % (Auto) Lymph % (Auto) Martin % (Auto) Eos % (Auto) Baso % (Auto) Neut # (Auto) Lymph # (Auto) [place] # (Auto) Eos # (Auto) Baso # (Auto) Immature Gran # (Auto) Absolute Nucleated RBC Immature Gran % Nucleated RBC % PT INR Sodium 145 Potassium 4.0 Chloride 108 H Carbon Dioxide 23.5 Anion Gap 14 BUN 17 Creatinine 0.8 Estim Creat Clear Calc 48.9 L eGFR > 60 BUN/Creatinine Ratio 21 H Glucose 171 H D Calculated Osmolality 294 Lactic Acid 4.0 H 2.5 H 1.8 Calcium 8.0 L Corrected Calcium 8.4 L Phosphorus Magnesium Total Bilirubin 4.4 H D ALT 480 H Alkaline Phosphatase 216 H D Ammonia 30 Total Protein 5.4 L Albumin 3.5 D Globulin 1.9 L Albumin/Globulin Ratio 1.8 Salicylates < 3.0 Acetaminophen 2.7 L Hepatitis A IgM Ab Non Reactive Hep Bs Antigen Non Reactive Hep B Core IgM Ab Non Reactive Hepatitis C Antibody Non Reactive 10/26/24 10/26/24 10/26/24 04:36 08:50 11:39 WBC 23.2 H D RBC 3.51 L Hgb 11.0 L D Hct 32.0 L MCV 91 MCH 31.3 MCHC 34.4 RDW Std Deviation 50.4 H Plt Count 246 D Neut % (Auto) 89 H Lymph % (Auto) 5 L Martin % (Auto) 4 Eos % (Auto) 0 Baso % (Auto) 0 Neut # (Auto) 20.7 H Lymph # (Auto) 1.1 Martin # (Auto) 0.9 H Eos # (Auto) 0.0 Baso # (Auto) 0.1 Immature Gran # (Auto) 0.49 H Absolute Nucleated RBC 0.00 Immature Gran % 2 H Nucleated RBC % 0 PT 13.3 H INR 1.2 Sodium Potassium Chloride Carbon Dioxide Anion Gap BUN Creatinine Estim Creat Clear Calc eGFR BUN/Creatinine Ratio Glucose Calculated Osmolality Lactic Acid Calcium Corrected Calcium Phosphorus 3.3 Magnesium 2.0 Total Bilirubin ALT Alkaline Phosphatase Ammonia Total Protein Albumin Globulin Albumin/Globulin Ratio Salicylates Acetaminophen Hepatitis A IgM Ab Hep Bs Antigen Hep B Core IgM Ab Hepatitis C Antibody ABG Interpretation ABG results: 10/25/24 10:45 VBG pH 7.39 VBG pCO2 40 VBG pO2 40 VBG Base Excess -1 Quality Measures Quality Measures none Advance care planning discussed with:: patient Assessment & Plan Assessment Current Active Medications: Generic Name Dose Route Start Last Admin Trade Name Freq PRN Reason Stop Dose Admin Dextrose 50 ml 10/25/24 21:00 Dextrose 50%-Water Inj 50 Ml Syringe IV 11/24/24 20:59 Q15MIN PRN BG <50 OR BG <70 & pt unresponsive Glucagon 1 mg 10/25/24 21:00 Glucagon Inj 1 Mg Vial IM Q15MIN PRN BG <70, and no IV access Glucagon 1 mg 10/26/24 14:48 Glucagon Inj 1 Mg Vial IM Q15MIN PRN BG <70, and no IV access Heparin Sodium (Porcine) 5,000 unit 10/25/24 17:45 10/26/24 13:39 Heparin Sod Inj 5000 Unit/Ml Vial SC 11/08/24 17:44 5,000 unit Q8HR [facility] Administration Hydromorphone HCl 0.2 mg 10/25/24 17:37 Hydromorphone Inj 2 Mg/Ml Vial IVP 10/30/24 17:36 Q4HR PRN PAIN Lactated Ringer's 1,000 mls @ 150 mls/hr 10/25/24 20:05 10/26/24 08:38 Lactated Ringers IV 11/24/24 20:04 150 mls/hr .Q6H40M [facility]ACEE Administration Piperacillin/Tazobactam/Dextrose 3.375 gm in 50 mls @ 12.5 mls/hr 10/26/24 09:53 10/26/24 13:38 Zosyn IV 11/02/24 09:52 Not Given Q8HR [facility] Protocol Insulin Glargine 5 unit 10/26/24 15:00 Insulin Glargine (Lantus) 5 Unit/0.05 Ml (Per 5 Units) SC 11/25/24 14:59 QDAY [facility] Insulin Human Lispro 0 unit 10/26/24 00:00 10/26/24 12:10 Insulin Lispro (Admelog) 1 Unit/0.01 Ml Unit SC 11/25/24 00:00 Not Given Q6HR [facility] Protocol Pantoprazole Sodium 40 mg 10/25/24 17:45 10/26/24 08:37 Pantoprazole Inj 40 Mg Vial IVP 11/24/24 17:44 40 mg QDAY [facility] Administration Plan Ms. Mccartney is a 83-year-old female with past medical history of hypertension, hyperlipidemia, A-fib on Eliquis, wzy-foexdjp-hfafaixza type 2 diabetes and recurrent episodes of pancreatitis with pseudocyst presented to the ED complaining of Nausea, vomiting and abdominal pain. Pt was admitted to the ICU on 10/25/24 for management of acute liver injury and acute pancreatitis. Pt is downgraded to [facility] on 10/26/24 for continued care. #Acute pancreatitis, improving Acute pancreatitis is of unspecified etiology; patient has history of recurrent pancreatitis.Pt has a history of cholecystectomy therefore unrelated to gallstones, triglyceride levels on previous admission was normal and unrelated to alcohol use as pt does not drink alcohol. Patient has history of pancreatitis in the past with a pseudocyst On admission Pt presented with nausea, vomiting and abdominal pain Lipase >3500 GB U/S from 04/13 showed Pancreatic head is prominent; CT Abd/P showed no concerning mass, showed acute pancreatitis and hepatomegaly Plan: -Patient is tolerating oral diet -Pt received total of 3.5L of fluids, and her symptoms have resolved and is tolerating oral diet therefore will discontinue maintenance fluids -Lipid panel ordered for am labs -Pain control ordered -IV Zofran as needed every 4 hours for nausea #GNR bacteremia #Lactic acidosis- resolved -Blood culture prelimary 06/23 grew GNR -Lactic acid 6.7---> 4.7 --> 1.8 --Pt was is started on zosyn on 10/25- #Acute liver Injury #Elevated liver enzymes, improving On admission Total billirubin 3.2, AST 956 and ALT 578, likely secondary to acute pancreatitis MRCP shows Moderate hepatomegaly Hepatitis panel negative Acetaminophen levels 2.7 Plan: -Fluids given -Will continue to monitor daily labs #History of A-fib, paroxysmal Rate controlled, patient is on Eliquis 5mg po BID for anticoagulation 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 twice daily -Will hold home metoprolol due to soft blood pressure, will resume when able #Primary hypertension #Hyperlipidemia -Will hold home antihypertensives due to soft blood pressure, will resume when able -Continue home rovastatin HS #Uhd-lvwfptd-vmuddbgip type 2 diabetes A1c of 6.6 on 03/23/24 Patient takes metformin 750 mg p.o. daily Plan: -Insulin Sliding scale ordered -Hypoglycemia protocol ordered -Accu-checks ACHS -A1c for am labs ordered Health Maintenance Disposition: Med-tele DVT Prophylaxis:Pt is on eliquis for anticoagulation due to Hx. of A-fib GI Prophylaxis: Pantoprozol-40 IV Qday Diet: Full liquid Lines: Peripheral lines Code status: DNR Assessment and plan discussed with my attending physician Dr. Apolinar Kennedy (PGY-1)- Internal medicine resident Attending Provider Attestation/Addendum I attest that I was physically present for the evaluation, physical examination, lab and imaging review of the patient with the residents. I discussed the case with the residents and agree with the findings and plans of care as documented above. Patient is an 84 years old female with past medical history of hypertension, hyperlipidemia, diabetes, A-fib on Eliquis, multiple episodes of pancreatitis presented to the ED with complaint of abdominal pain and vomiting. Patient was then admitted to ICU for management of acute pancreatitis. In the ICU, patient started improving with supportive treatment. She was started on diet, which she has been tolerated. Continues to have mild tenderness but no guarding or rigidity. She also complained of mild nausea but denies any vomiting. Unclear cause of pancreatitis. We will obtain lipid panel for tomorrow morning, CT abdomen/pelvis shows absent gallbladder, calcium level is 8.4 today. We will continue to monitor her closely, advance her diet slowly. Patient grew gram-negative rods on preliminary blood culture, has been started on IV Zosyn, we will await final culture results. Megha Jiang MD
[2024-10-26] MEDS: INSULIN GLARGINE (Lantus) 5 UNIT/0.05 ML (PER 5 UNITS) SC (15:37)
--- NOTE | 2024-10-26 16:12 | PC.SS ---
SS spoke with Janelle, Registration, updated PCP to Anel Banegas
[2024-10-26] MEDS: ATORVASTATIN CALCIUM 20 MG TABLET PO (21:29)
[2024-10-26] MEDS: APIXABAN 2.5 MG TABLET 5 MG PO (21:29)
[2024-10-27] VITALS (10 sets, daily range): BP systolic 121–135; BP diastolic 52–65; PULSE 76–92; RESP 17–31; TEMP 36.3–37.4; O2SAT 92–94
[2024-10-27] MEDS: PIPER/TAZO 3.375 GM PREMIX 3.375 GM/50 ML BAG IV ×3 (05:46→21:08)
[2024-10-27 07:23] LABS: Cardiac Risk Estimate 2.8 RATIO (3.7-5.6); Cholesterol 94 mg/dL (132-200); HDL Cholesterol 34 mg/dL (40-60); LDL Cholesterol,Calculated 40 mg/dL (0-130); Magnesium 2.1 mg/dL (1.6-2.6); Phosphorous 1.8 mg/dL (2.4-5.1); Triglycerides 99 mg/dL (30-150)
[2024-10-27 08:01] LABS: Basophils # (Auto) 0.1 Thou/mm3 (0.0-0.2); Basophils % (Auto) 0 % (0-2.5); Eosinophils # (Auto) 0.1 Thou/mm3 (0.0-0.5); Eosinophils % (Auto) 1 % (0-10); Hematocrit 31.8 % (36.0-46.0); Hemoglobin 10.6 g/dL (12.0-16.0); Immature Granulocytes % (Auto) 2 % (0-0); Immature Granulocytes Auto 0.38 Thou/mm3 (0.00-0.00); Lymphocytes # (Auto) 1.1 Thou/mm3 (1.0-4.8); Lymphocytes % (Auto) 6 % (10-50); Mean Corpuscular HGB Conc 33.3 g/dl (31.0-37.0); Mean Corpuscular Hemoglobin 31.5 pg (25.0-35.0); Mean Corpuscular Volume 94 fL (80-100); Monocytes # (Auto) 0.9 Thou/mm3 (0.0-0.8); Monocytes % (Auto) 5 % (0-12); Neutrophils # (Auto) 15.4 Thou/mm3 (1.8-7.7); Neutrophils % (Auto) 86 % (37-80); Nucleated Red Blood Cell % 0 /100 WBC (0); Platelet Count 235 Thou/mm3 (140-440); RDW Standard Deviation 52.7 fL (36.4-46.3); Red Blood Count 3.37 Miln/mm3 (4.00-5.20); White Blood Count 17.9 Thou/mm3 (3.6-11.0)
[2024-10-27 08:49] LABS: INR 1.1 (0.9-1.3); Prothrombin Time 12.4 Seconds (9.0-12.2)
[2024-10-27 08:55] LABS: Alanine Aminotransferase 222 U/L (10-49); Albumin, Serum 3.2 gm/dL (3.4-4.8); Albumin/Globulin Ratio 1.6 (1.2-2.2); Alkaline Phosphatase 173 U/L (46-116); Anion Gap 11 (7-16); BUN/Creatinine Ratio 20 Ratio (12-20); Bilirubin,Total 1.3 mg/dL (0.3-1.2); Blood Urea Nitrogen 10 mg/dL (9-23); Calcium (Corrected) 8.6 mg/dL (8.5-10.1); Carbon Dioxide 24.7 mMol/L (20.0-31.0); Chloride 105 mMol/L (98-107); Creatinine (Component) 0.5 mg/dL (0.6-1.3); Estimated Creatinine Clearance 81.4 mL/min (>60); Glucose 120 mg/dL (74-106); Osmolality,Calculated 281 (275-295); Potassium 3.6 mMol/L (3.4-5.1); Sodium 141 mMol/L (136-145); Total Protein 5.2 gm/dL (5.7-8.2); eGFR > 60 See Note
[2024-10-27] MEDS: PANTOPRAZOLE INJ 40 MG VIAL IVP (09:12)
[2024-10-27] MEDS: APIXABAN 2.5 MG TABLET 5 MG PO ×2 (09:12→20:38)
[2024-10-27] MEDS: NAPH,KPH MBDB 1 PACKET (1.5 GM) PO (09:12)
[2024-10-27] MEDS: INSULIN GLARGINE (Lantus) 5 UNIT/0.05 ML (PER 5 UNITS) SC (09:12)
--- NOTE | 2024-10-27 10:57 | XR_ITS ---
Examination: AP chest single view Technique: Portable AP sitting chest single view Date and time: October 27, 2024, 11:33 AM Comparison October 10, 2023 Indications: Shortness of breath today. Findings: Mild CHF. Moderate enlargement cardiac contour. Prominent vascular congestion with perihilar edema Consider superimposed pneumonia right base Impression: Mild CHF Consider superimposed pneumonia right base
[2024-10-27] MEDS: POLYETHYLENE GLYCOL 17 GM PACKET PO (12:18)
--- NOTE | 2024-10-27 15:16 | ESPR_ITS ---
Documentation for date of: 10/27/24 Subjective Subjective Interval history: No acute overnight events, patient is tolerating well diet, we will advance to solid. Patient's blood cultures growing GNR, currently on Zosyn. Patient continues requiring oxygen, this morning 2 L, patient's daughter refers she has required oxygen at home in the past, however she currently does not have a tank, patient has never been a smoker, we will order a chest x-ray and follow- up. Exam Vital Signs Temp Pulse Resp BP Pulse Ox O2 Del Method O2 Flow Rate 98.3 F 84 19 135/63 H 93 L Nasal Cannula 2 10/27/24 12:00 10/27/24 12:00 10/27/24 12:00 10/27/24 12:00 10/27/24 12:00 10/27/24 12:00 10/27/24 12:00 Objective Labs 10/27/24 04:47 10/27/24 04:47 Labs: Laboratory Results - last 24 hr 10/27/24 04:47 WBC 17.9 H D RBC 3.37 L Hgb 10.6 L Hct 31.8 L MCV 94 MCH 31.5 MCHC 33.3 RDW Std Deviation 52.7 H Plt Count 235 Neut % (Auto) 86 H Lymph % (Auto) 6 L [place] % (Auto) 5 Eos % (Auto) 1 Baso % (Auto) 0 Neut # (Auto) 15.4 H Lymph # (Auto) 1.1 [place] # (Auto) 0.9 H Eos # (Auto) 0.1 Baso # (Auto) 0.1 Immature Gran # (Auto) 0.38 H Absolute Nucleated RBC 0.00 Immature Gran % 2 H Nucleated RBC % 0 PT 12.4 H INR 1.1 Sodium 141 Potassium 3.6 Chloride 105 Carbon Dioxide 24.7 Anion Gap 11 BUN 10 Creatinine 0.5 L Estim Creat Clear Calc 81.4 eGFR > 60 BUN/Creatinine Ratio 20 Glucose 120 H D Calculated Osmolality 281 Calcium 8.0 L Corrected Calcium 8.6 Phosphorus 1.8 L Magnesium 2.1 Total Bilirubin 1.3 H D ALT 222 H Alkaline Phosphatase 173 H D Total Protein 5.2 L Albumin 3.2 L Globulin 2.0 L Albumin/Globulin Ratio 1.6 Triglycerides 99 Cholesterol 94 L LDL Cholesterol, Calc 40 HDL Cholesterol 34 L Cholesterol/HDL Ratio 2.8 L ABG Interpretation ABG results: 10/25/24 10:45 VBG pH 7.39 VBG pCO2 40 VBG pO2 40 VBG Base Excess -1 Quality Measures Quality Measures none Advance care planning discussed with:: patient Assessment & Plan Assessment Current Active Medications: Generic Name Dose Route Start Last Admin Trade Name Freq PRN Reason Stop Dose Admin Apixaban 5 mg 10/26/24 21:00 10/27/24 09:12 Apixaban 2.5 Mg Tablet PO 11/25/24 20:59 5 mg BID TRACEE Administration Atorvastatin Calcium 20 mg 10/26/24 21:00 10/26/24 21:29 Atorvastatin Calcium 20 Mg Tablet PO 11/25/24 20:59 20 mg 2100 TRACEE Administration Protocol Dextrose 50 ml 10/25/24 21:00 Dextrose 50%-Water Inj 50 Ml Syringe IV 11/24/24 20:59 Q15MIN PRN BG <50 OR BG <70 & pt unresponsive Glucagon 1 mg 10/26/24 14:48 Glucagon Inj 1 Mg Vial IM Q15MIN PRN BG <70, and no IV access Hydromorphone HCl 0.2 mg 10/25/24 17:37 Hydromorphone Inj 2 Mg/Ml Vial IVP 10/30/24 17:36 Q4HR PRN PAIN Piperacillin/Tazobactam/Dextrose 3.375 gm in 50 mls @ 12.5 mls/hr 10/26/24 09:53 10/27/24 13:12 Zosyn IV 11/02/24 09:52 12.5 mls/hr Q8HR [facility] Administration Protocol Insulin Glargine 5 unit 10/26/24 15:00 10/27/24 09:12 Insulin Glargine (Lantus) 5 Unit/0.05 Ml (Per 5 Units) SC 11/25/24 14:59 5 unit QDAY [facility] Administration Insulin Human Lispro 0 unit 10/26/24 17:00 10/27/24 11:30 Insulin Lispro (Admelog) 1 Unit/0.01 Ml Unit SC 11/25/24 16:59 Not Given ACHS [facility] Protocol Pantoprazole Sodium 40 mg 10/28/24 09:00 Pantoprazole 40 Mg Tablet PO 11/27/24 08:59 QDAY [facility] Plan Ms. Mccartney is a 83-year-old female with past medical history of hypertension, hyperlipidemia, A-fib on Eliquis, pyn-lrpamiw-ztejyfxpm type 2 diabetes and recurrent episodes of pancreatitis with pseudocyst presented to the ED complaining of Nausea, vomiting and abdominal pain. Pt was admitted to the ICU on 10/25/24 for management of acute liver injury and acute pancreatitis. Pt is downgraded to Med-tele on 10/26/24 for continued care. #Acute hypoxic respiratory failure -DDx: HF, OHS -Patient has remained afebrile, denies cough, WBCs downtrending, pneumonia less likely -Patient's daughter refers she has required oxygen at home in the past, however she currently does not have a tank, patient has never been a smoker, -Follow up chest x ray -2L NC #GNR bacteremia #Lactic acidosis- resolved -Blood culture prelimary 06/23 grew GNR -Lactic acid 6.7---> 4.7 --> 1.8 --Pt was is started on zosyn on 10/25- #Acute pancreatitis, improving Acute pancreatitis is of unspecified etiology; patient has history of recurrent pancreatitis.Pt has a history of cholecystectomy therefore unrelated to gallstones, triglyceride levels on previous admission was normal and unrelated to alcohol use as pt does not drink alcohol. Patient has history of pancreatitis in the past with a pseudocyst On admission Pt presented with nausea, vomiting and abdominal pain Lipase >3500 GB U/S from 04/13 showed Pancreatic head is prominent; CT Abd/P showed no concerning mass, showed acute pancreatitis and hepatomegaly Plan: -Patient is tolerating oral diet -Pt received total of 3.5L of fluids, and her symptoms have resolved and is tolerating oral diet therefore will discontinue maintenance fluids -Lipid panel ordered for am labs -Pain control ordered -IV Zofran as needed every 4 hours for nausea #History of A-fib, paroxysmal Rate controlled, patient is on Eliquis 5mg po BID for anticoagulation 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 twice daily -Will hold home metoprolol due to soft blood pressure, will resume when able #Primary hypertension #Hyperlipidemia -Will hold home antihypertensives due to soft blood pressure, will resume when able -Continue home rovastatin HS #Srs-sixttgy-pcpkdpqqs type 2 diabetes A1c of 6.6 on 03/23/24 Patient takes metformin 750 mg p.o. daily Plan: -Insulin Sliding scale ordered -Hypoglycemia protocol ordered -Accu-checks ACHS -A1c for am labs ordered Health Maintenance Disposition: Med-tele DVT Prophylaxis:Pt is on eliquis for anticoagulation due to Hx. of A-fib GI Prophylaxis: Pantoprozol-40 IV Qday Diet: Full liquid Lines: Peripheral lines Code status: DNR Assessment and plan discussed with my attending physician Dr. Apolinar Hale MD PGY3 Attending Provider Attestation/Addendum I attest that I was physically present for the evaluation, physical examination, lab and imaging review of the patient with the residents. I discussed the case with the residents and agree with the findings and plans of care as documented above. At bedside today, patient states she is feeling well and denies new complaints. SHe has been tolerating his diet well, we will advance to solid diet. Blood culture and urine culture grew GNR, awaiting final culture results. Patient continues to be on IV Zosyn. This morning, appeared slightly short of breath, on 2 L nasal cannula. Patient had used oxygen at home in the past but currently does not use it. We will obtain a chest x-ray and monitor her respiratory status closely. Abdominal pain has been improving consistently, continues to have mild tenderness around right upper quadrant. We will discontinue IV fluid and encourage her oral intake. Continue Eliquis for A-fib. Continues to be on insulin regimen for diabetes. WBC count has been improving, awaiting final culture results. Megha Jiang MD
--- NOTE | 2024-10-27 15:43 | PC.SS ---
SS spoke wtloc Mahajan, registration to update Person to Notify spouse who is decision maker Wilson Lyn,
[2024-10-27] MEDS: FUROSEMIDE INJ 10 MG/ML 4ML VIAL 40 MG IVP (15:46)
[2024-10-27] MEDS: INSULIN LISPRO (AdmeLOG) 1 UNIT/0.01 ML UNIT SC (20:38)
[2024-10-27] MEDS: ATORVASTATIN CALCIUM 20 MG TABLET PO (20:39)
--- NOTE | 2024-10-27 21:36 | PC.NURSE ---
urine drug screen sent at [phone]
[2024-10-27 22:15] LABS: Amphetamine/Methamp Scrn,U Negative (Negative); Barbiturate Screen,Urine Negative (Negative); Benzodiazepines Screen,Urine Negative (Negative); Benzoylecgonine Screen, Ur Negative (Negative); Fentanyl Screen,Urine Negative (Negative); Opiate Screen,Urine Negative (Negative); THC Screen,Urine Negative (Negative)
[2024-10-28] VITALS (11 sets, daily range): BP systolic 114–136; BP diastolic 58–72; PULSE 71–91; RESP 15–24; TEMP 36.1–36.7; O2SAT 90–96; BMI 34.7
[2024-10-28] MEDS: PIPER/TAZO 3.375 GM PREMIX 3.375 GM/50 ML BAG IV (05:01)
[2024-10-28 06:00] LABS: Basophils # (Auto) 0.1 Thou/mm3 (0.0-0.2); Basophils % (Auto) 0 % (0-2.5); Eosinophils # (Auto) 0.2 Thou/mm3 (0.0-0.5); Eosinophils % (Auto) 1 % (0-10); Immature Granulocytes % (Auto) 1 % (0-0); Immature Granulocytes Auto 0.13 Thou/mm3 (0.00-0.00); Lymphocytes # (Auto) 1.2 Thou/mm3 (1.0-4.8); Lymphocytes % (Auto) 9 % (10-50); Mean Corpuscular HGB Conc 34.3 g/dl (31.0-37.0); Mean Corpuscular Hemoglobin 30.6 pg (25.0-35.0); Mean Corpuscular Volume 89 fL (80-100); Monocytes # (Auto) 1.1 Thou/mm3 (0.0-0.8); Monocytes % (Auto) 8 % (0-12); Neutrophils # (Auto) 11.3 Thou/mm3 (1.8-7.7); Neutrophils % (Auto) 81 % (37-80); Nucleated Red Blood Cell % 0 /100 WBC (0); Platelet Count 236 Thou/mm3 (140-440); RDW Standard Deviation 46.6 fL (36.4-46.3); Red Blood Count 3.92 Miln/mm3 (4.00-5.20); White Blood Count 13.9 Thou/mm3 (3.6-11.0)
[2024-10-28 06:48] LABS: Alanine Aminotransferase 148 U/L (10-49); Albumin, Serum 3.7 gm/dL (3.4-4.8); Albumin/Globulin Ratio 1.7 (1.2-2.2); Alkaline Phosphatase 179 U/L (46-116); Anion Gap 10 (7-16); BUN/Creatinine Ratio 17 Ratio (12-20); Bilirubin,Total 1.6 mg/dL (0.3-1.2); Blood Urea Nitrogen 10 mg/dL (9-23); Calcium 8.9 mg/dL (8.3-10.6); Calcium (Corrected) 9.1 mg/dL (8.5-10.1); Carbon Dioxide 28.8 mMol/L (20.0-31.0); Chloride 95 mMol/L (98-107); Creatinine (Component) 0.6 mg/dL (0.6-1.3); Estimated Creatinine Clearance 67.2 mL/min (>60); Globulin 2.2 gm/dL (2.3-3.5); Glucose 144 mg/dL (74-106); Magnesium 1.8 mg/dL (1.6-2.6); Osmolality,Calculated 270 (275-295); Potassium 3.3 mMol/L (3.4-5.1); Sodium 134 mMol/L (136-145); Total Protein 5.9 gm/dL (5.7-8.2); eGFR > 60 See Note
[2024-10-28] MEDS: POTASSIUM CHLORIDE 20 mEq TABCR 40 MEQ PO (08:00)
[2024-10-28] MEDS: APIXABAN 2.5 MG TABLET 5 MG PO ×2 (08:00→20:36)
[2024-10-28] MEDS: PANTOPRAZOLE 40 MG TABLET PO (08:17)
[2024-10-28] MEDS: FUROSEMIDE INJ 10 MG/ML 4ML VIAL 40 MG IVP (08:17)
[2024-10-28] MEDS: INSULIN GLARGINE (Lantus) 5 UNIT/0.05 ML (PER 5 UNITS) SC (08:19)
[2024-10-28 09:03] LABS: INR 1.1 (0.9-1.3); Prothrombin Time 12.4 Seconds (9.0-12.2)
[2024-10-28] MEDS: LEVOFLOXACIN/D5W 500 MG IVPB 500 MG/100 ML BAG 100 MG IV (10:35)
--- NOTE | 2024-10-28 12:08 | PC.SS ---
Update: Echo is pending. Pending blood cultures. Cardiology is consulting.
[2024-10-28] MEDS: INSULIN LISPRO (AdmeLOG) 1 UNIT/0.01 ML UNIT SC ×3 (12:13→20:45)
[2024-10-28] MEDS: GLYCERIN, ADULT 1 EA SUPP 1 EACH PR (14:00)
[2024-10-28] MEDS: SENNA/DOCUSATE SOD 1 TAB TABLET PO (14:00)
--- NOTE | 2024-10-28 14:39 | PC.SS ---
Rounding Note: Echo is pending.
--- NOTE | 2024-10-28 15:38 | ECHO_ITS ---
Transthoracic Echo Report Ht (in): 61 Wt (lb): 187 Exam Location: Echo Lab Status: Inpatient Table Attendant: Elisha Sales Indications: Procedure Performed: BP: 114 / 70 HR: 75 Technical Quality: Technically Difficult/Patient Supine MEASUREMENTS (Male / Female) Normal Values 2D ECHO LV Diastolic Diameter PLAX 4.3 cm 4.2 - 5.9 / 3.9 - 5.3 cm LV Systolic Diameter PLAX 1.8 cm IVS Diastolic Thickness 0.8 cm 0.6 - 1.0 / 0.6 - 0.9 cm LVPW Diastolic Thickness 0.9 cm 0.6 - 1.0 / 0.6 - 0.9 cm LV Relative Wall Thickness 0.4 LVOT Diameter 1.8 cm DOPPLER AV Peak Velocity 118.3 cm/s AV Peak Gradient 5.6 mmHg LVOT Peak Velocity 86.1 cm/s LVOT Peak Gradient 3.0 mmHg AV Area Cont Eq pk 1.9 cm? MV Area PHT 2.9 cm? Mitral E Point Velocity 70.4 cm/s Mitral A Point Velocity 131.0 cm/s Mitral E to A Ratio 0.5 PV Peak Velocity 61.1 cm/s PV Peak Gradient 1.5 mmHg FINDINGS Left Ventricle Normal left ventricular size, wall thickness, systolic function with no obvious regional wall motion abnormalities The ejection fraction is visually estimated at 55-60 %. Right Ventricle The right ventricle is normal in size and systolic function. Left Atrium Left atrium not well visualized. Right Atrium Right atrium is not well visualized. Atrial Septum The interatrial septum appears normal with no evidence of a shunt. Aorta The aorta is normal by two-dimensional, color flow and Doppler interrogation. Mitral Valve There is mild mitral annular calcification. Trace mitral regurgitation. Aortic Valve The aortic valve is trileaflet and normal by two-dimensional, color flow and Doppler interrogation. There is no significant aortic valve regurgitation. Tricuspid Valve The tricuspid valve is normal by two-dimensional, color flow and Doppler interrogation. There is trace tricuspid regurgitation. Pulmonic Valve The pulmonic valve is not well visualized. There is no significant pulmonic valve regurgitation. Vessels The pulmonary artery appears normal. The inferior vena cava pulmonary and hepatic veins appear normal. Pericardium There is a small loculated pericardial effusion. CONCLUSIONS Indications: CHF Technically Difficult Study. Normal LV size and function. Estimated EF 55-60% Normal RV size and function. Mitral thickening annulus calcification mild mitral regurgitation Small loculated pericardial effusion. Trena Manrique (Electronically Signed) Final Date: 28 October 2024 18:03
--- NOTE | 2024-10-28 16:53 | PC.SS ---
GIN INSPECTOR requested room air evaluation to be conducted to confirm patient's need for home oxygen. GIN INSPECTOR submitted request to bedside nurse.
--- NOTE | 2024-10-28 17:01 | ESPR_ITS ---
Documentation for date of: 10/28/24 Subjective Subjective Interval history: No acute overnight events reported. Patient seen and examined at bedside this morning. Vitals are stable, patient is saturating above 94% on 2 L of oxygen via nasal cannula. Patient denies any chest pain palpitation or shortness of breath patient also denies abdominal pain. Patient is tolerating oral diet well, diet is advanced to solid. Patient denies any nausea or vomiting. Patient's daughter is at bedside who is updated of plan. WBCs down trended to 13.9, potassium is 3.3 and is repleted. ALT has down trended to 148. Patient is pending echo. Patient's blood culture 1 out of 2 bottles were positive for E. coli and urine cultures also positive for E. coli patient's antibiotics is switched to Levaquin for additional 5 days. Exam Vital Signs Temp Pulse Resp BP Pulse Ox O2 Del Method O2 Flow Rate 97.5 F 72 18 117/72 96 Nasal Cannula 2 10/28/24 16:00 10/28/24 16:10/28/24 16:10/28/24 16:10/28/24 16:10/28/24 16:10/28/24 16:00 Narrative Exam GENERAL: A&Ox3 elderly female, Awake and cooperative, Not in acute distress NEURO: no focal neurological deficits noted, baseline mentation HEENT: Atraumatic, Normocephalic. mucous membranes moist. Eyes open, symmetrical, & clear HEART: Normal Heart Sounds LUNGS: Clear to auscultation with no wheezing or crackles. ABDOMEN: soft, non-distended, non-tender, bowel sounds heard, no guarding or rebound tenderness SKIN: No Rash, venous insufficiency noted bilaterally on LE, some bruising on left foot from fall EXTREMITIES: No edema, tenderness, able to move all 4 extremities, pedal pulses palpated Objective Labs 10/29/24 04:16 10/29/24 04:16 Labs: Laboratory Results - last 24 hr 10/27/24 10/28/24 10/28/24 21:35 05:22 08:32 WBC 13.9 H RBC 3.92 L Hgb 12.0 Hct 35.0 L MCV 89 MCH 30.6 MCHC 34.3 RDW Std Deviation 46.6 H Plt Count 236 Neut % (Auto) 81 H Lymph % (Auto) 9 L Jewell % (Auto) 8 Eos % (Auto) 1 Baso % (Auto) 0 Neut # (Auto) 11.3 H Lymph # (Auto) 1.2 Jewell # (Auto) 1.1 H Eos # (Auto) 0.2 Baso # (Auto) 0.1 Immature Gran # (Auto) 0.13 H Absolute Nucleated RBC 0.00 Immature Gran % 1 H Nucleated RBC % 0 PT 12.4 H INR 1.1 Sodium 134 L Potassium 3.3 L Chloride 95 L Carbon Dioxide 28.8 Anion Gap 10 BUN 10 Creatinine 0.6 Estim Creat Clear Calc 67.2 eGFR > 60 BUN/Creatinine Ratio 17 Glucose 144 H Calculated Osmolality 270 L Calcium 8.9 Corrected Calcium 9.1 Phosphorus 3.0 Magnesium 1.8 Total Bilirubin 1.6 H ALT 148 H Alkaline Phosphatase 179 H Total Protein 5.9 Albumin 3.7 D Globulin 2.2 L Albumin/Globulin Ratio 1.7 Urine Opiates Screen Negative Urine Fentanyl Screen Negative Ur Barbiturates Screen Negative U Amphetamin/Meth Scrn Negative U Benzodiazepines Scrn Negative U Cocaine Metab Screen Negative U Marijuana (THC) Screen Negative ABG Interpretation ABG results: 10/25/24 10:45 VBG pH 7.39 VBG pCO2 40 VBG pO2 40 VBG Base Excess -1 Quality Measures Quality Measures none Advance care planning discussed with:: patient Assessment & Plan Assessment Current Active Medications: Generic Name Dose Route Start Last Admin Trade Name Freq PRN Reason Stop Dose Admin Apixaban 5 mg 10/26/24 21:00 10/28/24 08:00 Apixaban 2.5 Mg Tablet PO 11/25/24 20:59 5 mg BID TRACEE Administration Atorvastatin Calcium 20 mg 10/26/24 21:00 10/27/24 20:39 Atorvastatin Calcium 20 Mg Tablet PO 11/25/24 20:59 20 mg 2100 TRACEE Administration Protocol Dextrose 50 ml 10/25/24 21:00 Dextrose 50%-Water Inj 50 Ml Syringe IV 11/24/24 20:59 Q15MIN PRN BG <50 OR BG <70 & pt unresponsive Furosemide 40 mg 10/27/24 15:45 10/28/24 08:17 Furosemide Inj 10 Mg/Ml 4ml Vial IVP 11/26/24 15:44 40 mg QDAY TRACEE Administration Glucagon 1 mg 10/26/24 14:48 Glucagon Inj 1 Mg Vial IM Q15MIN PRN BG <70, and no IV access Hydromorphone HCl 0.2 mg 10/25/24 17:37 Hydromorphone Inj 2 Mg/Ml Vial IVP 10/30/24 17:36 Q4HR PRN PAIN Levofloxacin/Dextrose 500 mg in 100 mls @ 100 mls/hr 10/28/24 10:15 10/28/24 10:35 Levaquin Ivpb IV 11/01/24 10:14 100 mls/hr QDAY TRACEE Administration Insulin Glargine 5 unit 10/26/24 15:00 10/28/24 08:19 Insulin Glargine (Lantus) 5 Unit/0.05 Ml (Per 5 Units) SC 11/25/24 14:59 5 unit QDAY TRACEE Administration Insulin Human Lispro 0 unit 10/26/24 17:00 10/28/24 12:13 Insulin Lispro (Admelog) 1 Unit/0.01 Ml Unit SC 11/25/24 16:59 1 unit ACHS TRACEE Administration Protocol Pantoprazole Sodium 40 mg 10/28/24 09:00 10/28/24 08:17 Pantoprazole 40 Mg Tablet PO 11/27/24 08:59 40 mg QDAY TRACEE Administration Sennosides 1 tab 10/28/24 13:15 10/28/24 14:00 Senna/Docusate Sod 1 Tab Tablet PO 11/27/24 13:14 1 tab QDAY TRACEE Administration Protocol Plan Ms. Mccartney is a 83-year-old female with past medical history of hypertension, hyperlipidemia, A-fib on Eliquis, vyf-wknewfv-lhrbpwueq type 2 diabetes and recurrent episodes of pancreatitis with pseudocyst presented to the ED complaining of Nausea, vomiting and abdominal pain. Pt was admitted to the ICU on 10/25/24 for management of acute liver injury and acute pancreatitis. Pt is downgraded to Med-tele on 10/26/24 for continued care. #Acute hypoxic respiratory failure -DDx: HF, OHS -Patient has remained afebrile, denies cough, WBCs downtrending, pneumonia less likely -Patient's daughter refers she has required oxygen at home in the past, however she currently does not have a tank, patient has never been a smoker, -Echo pending -2L NC #E. Coli bacteremia #E.Coli UTI #Lactic acidosis- resolved -Blood culture / grew E.coli and Urine cultures grew E. coli. However pt denied any urinary symptoms of dysuria or urgency -Lactic acid 6.7---> 4.7 --> 1.8 -Pt was on zosyn on 10/25-10/28 -Pt is started on Levaquin 10/28-11/01 #Acute pancreatitis, resolved Acute pancreatitis is of unspecified etiology; patient has history of recurrent pancreatitis.Pt has a history of cholecystectomy therefore unrelated to gallstones, triglyceride levels on previous admission was normal and unrelated to alcohol use as pt does not drink alcohol. Patient has history of pancreatitis in the past with a pseudocyst On admission Pt presented with nausea, vomiting and abdominal pain Lipase >3500 GB U/S from 04/13 showed Pancreatic head is prominent; CT Abd/P showed no concerning mass, showed acute pancreatitis and hepatomegaly Plan: -Patient is tolerating oral diet -Pt received total of 3.5L of fluids, and her symptoms have resolved and is tolerating oral diet therefore will discontinue maintenance fluids -Lipid panel showed triglycerides within normal limits -Pain control ordered -IV Zofran as needed every 4 hours for nausea #History of A-fib, paroxysmal Rate controlled, patient is on Eliquis 5mg po BID for anticoagulation 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 twice daily -Will hold home metoprolol due to soft blood pressure, will resume when able #Primary hypertension #Hyperlipidemia -Will hold home antihypertensives due to soft blood pressure, will resume when able -Continue home rovastatin HS #Xlv-onnnqtl-mgcrjvnsg type 2 diabetes A1c of 6.6 on 03/23/24 Patient takes metformin 750 mg p.o. daily Plan: -Insulin Sliding scale ordered -Hypoglycemia protocol ordered -Accu-checks ACHS -A1c for am labs ordered Health Maintenance Disposition: Med-tele DVT Prophylaxis:Pt is on eliquis for anticoagulation due to Hx. of A-fib GI Prophylaxis: Pantoprozol-40 IV Qday Diet: Full liquid Lines: Peripheral lines Code status: DNR Assessment and plan discussed with my attending physician Dr. Apolinar Kennedy (PGY-1)- Internal medicine resident Attending Provider Attestation/Addendum I attest that I was physically present for the evaluation, physical examination, lab and imaging review of the patient with the residents. I discussed the case with the residents and agree with the findings and plans of care as documented above. Megha Jiang MD
--- NOTE | 2024-10-28 17:31 | PC.NURSE ---
Attempted to take patient off oxygen. patient 02 sats are 90% on room air. Put patient back on 2 liters nc satting 95% 0n 2 liters nc.
[2024-10-28] MEDS: ATORVASTATIN CALCIUM 20 MG TABLET PO (20:36)
[2024-10-29] VITALS (13 sets, daily range): BP systolic 105–152; BP diastolic 61–82; PULSE 75–103; RESP 18–26; TEMP 36.1–36.9; O2SAT 92–96; BMI 33.4; BMI 12.0
--- NOTE | 2024-10-29 03:18 | PC.NURSE ---
Dr. Vazquez made aware of patient still not having enough bowel movement despite receiving Dulcolax suppository yesterday, 10/28/24. said he'll let the day team know.
[2024-10-29 05:09] LABS: Basophils # (Auto) 0.1 Thou/mm3 (0.0-0.2); Basophils % (Auto) 0 % (0-2.5); Eosinophils # (Auto) 0.2 Thou/mm3 (0.0-0.5); Eosinophils % (Auto) 2 % (0-10); Hematocrit 36.7 % (36.0-46.0); Hemoglobin 12.8 g/dL (12.0-16.0); Immature Granulocytes % (Auto) 1 % (0-0); Immature Granulocytes Auto 0.11 Thou/mm3 (0.00-0.00); Lymphocytes # (Auto) 1.4 Thou/mm3 (1.0-4.8); Lymphocytes % (Auto) 11 % (10-50); Mean Corpuscular HGB Conc 34.9 g/dl (31.0-37.0); Mean Corpuscular Hemoglobin 30.9 pg (25.0-35.0); Mean Corpuscular Volume 89 fL (80-100); Monocytes # (Auto) 1.3 Thou/mm3 (0.0-0.8); Monocytes % (Auto) 11 % (0-12); Neutrophils # (Auto) 8.9 Thou/mm3 (1.8-7.7); Neutrophils % (Auto) 75 % (37-80); Nucleated Red Blood Cell % 0 /100 WBC (0); Platelet Count 248 Thou/mm3 (140-440); RDW Standard Deviation 46.7 fL (36.4-46.3); Red Blood Count 4.14 Miln/mm3 (4.00-5.20); White Blood Count 11.9 Thou/mm3 (3.6-11.0)
[2024-10-29 05:27] LABS: Alanine Aminotransferase 101 U/L (10-49); Albumin, Serum 3.8 gm/dL (3.4-4.8); Albumin/Globulin Ratio 1.5 (1.2-2.2); Alkaline Phosphatase 184 U/L (46-116); Anion Gap 15 (7-16); BUN/Creatinine Ratio 20 Ratio (12-20); Bilirubin,Total 1.1 mg/dL (0.3-1.2); Blood Urea Nitrogen 12 mg/dL (9-23); Calcium 8.8 mg/dL (8.3-10.6); Carbon Dioxide 26.3 mMol/L (20.0-31.0); Chloride 98 mMol/L (98-107); Creatinine (Component) 0.6 mg/dL (0.6-1.3); Estimated Creatinine Clearance 67.2 mL/min (>60); Globulin 2.5 gm/dL (2.3-3.5); Glucose 158 mg/dL (74-106); Magnesium 1.8 mg/dL (1.6-2.6); Osmolality,Calculated 280 (275-295); Phosphorous 2.9 mg/dL (2.4-5.1); Potassium 3.6 mMol/L (3.4-5.1); Sodium 139 mMol/L (136-145); Total Protein 6.3 gm/dL (5.7-8.2); eGFR > 60 See Note
[2024-10-29] MEDS: INSULIN LISPRO (AdmeLOG) 1 UNIT/0.01 ML UNIT SC ×4 (07:31→20:11)
[2024-10-29] MEDS: PANTOPRAZOLE 40 MG TABLET PO (08:55)
[2024-10-29] MEDS: SENNA/DOCUSATE SOD 1 TAB TABLET PO (08:55)
[2024-10-29] MEDS: APIXABAN 2.5 MG TABLET 5 MG PO ×2 (08:55→20:09)
[2024-10-29] MEDS: FUROSEMIDE INJ 10 MG/ML 4ML VIAL 40 MG IVP (08:55)
[2024-10-29] MEDS: LEVOFLOXACIN/D5W 500 MG IVPB 500 MG/100 ML BAG 100 MG IV (08:55)
[2024-10-29] MEDS: INSULIN GLARGINE (Lantus) 5 UNIT/0.05 ML (PER 5 UNITS) SC (08:56)
--- NOTE | 2024-10-29 09:33 | PC.SS ---
Addendum entered by PAULINA Waters 10/29/24 17:54: SS follow up: Enma from [employer] [facility] informs they are pending insurance verification for 02 therefore, they will deliver 02 tomorrow if authorized. Updated bedside nurse Tommie. Addendum entered by PAULINA Waters 10/29/24 15:50: SS update: Enma from [employer] [facility] [facility] informs they are pending insurance verification for 02. Addendum entered by PAULINA Waters 10/29/24 14:54: DME inquiry sent via [employer]. Pending response for DME delivery/approval. Original Note: SS follow up: updated bedside RN the need for 02 testing to be completed to order DME before d/c.
[2024-10-29 10:29] LABS: INR 1.1 (0.9-1.3)
--- NOTE | 2024-10-29 11:30 | PC.NURSE ---
Patient O2 sat 91% on RA, physical therapy present working with patient got patient up out of bed, standing, marching in place and side stepping left and right, O2 sat on RA 88%. Applied O2 at 2L via NC patient O2 sat 93%.
--- NOTE | 2024-10-29 14:53 | ESDS_ITS ---
Planned Discharge Date 10/29/24 DS: Providers Provider Date of admission: 10/25/24 17:37 Primary care physician: Juan Banegas MD Admitting Provider: Cindy Hernandez MD Attending Provider on Admission: Megha Jiang MD Consults: 10/28/24 10:09 Referral Physical Therapy Routine Comment: Physician Instructions: Attending Provider on DC: Megha Jiang MD Discharging Provider: Megha Jiang MD Anticipated date of discharge: 10/29/24 DS: Diagnosis Problem List Completed Was Problem List Reviewed/Reconciled?: Yes Hospital Course Hospital Course Hospital course: Ms. Mccartney is a 83-year-old female with past medical history of hypertension, hyperlipidemia, A-fib on Eliquis, gwe-ncoscsk-vojufbqrb type 2 diabetes and recurrent episodes of pancreatitis with pseudocyst presented to the ED complaining of Nausea, vomiting and abdominal pain. Patient was admitted to intensive care unit for management of acute pancreatitis. Patient's lipase on presentation was found to be more than 3500, gallbladder ultrasound showed pancreatic head is prominent, CT abdomen pelvis showed no concerning mass, though did show acute hepatitis and hepatomegaly. Patient was given 2.5 L of fluid, was started on oral diet and was downgraded to med/tele for continued care, patient was also found to have underlying E. coli bacteremia for which patient received IV antibiotics, home medications were resumed as deemed appropriate for the hospitalization course, eventually patient was found to have acute hypoxic respiratory failure, patient underwent echocardiogram which showed EF 55 to 60%, patient was given Lasix for the hospitalization. Further plan is to discharge patient home with home health, patient to follow-up with primary care physician in 1 to 2 weeks, patient to obtain referral for varsity baseball coach and follow-up outpatient. Patient to continue antibiotics for bacteremia and continue all other home medications. Patient is stable for discharge, responded well to hospital treatment. Discharge Recommendations -Follow up outpatient with your primary care within 2 weeks -Follow up with a varsity baseball coach within 2 weeks after discharge -You have been prescribed antibiotics for additional 3 days, please completed the course -Promptly return to the ED if your symptoms return or worsen Hospitalization Diagnosis #E. Coli bacteremia #E.Coli UTI #Lactic acidosis- resolved #Acute pancreatitis, resolved #History of atrial fibrillation, paroxysmal #Primary hypertension #Hyperlipidemia #Bxq-yzqotsq-namzbfght diabetes mellitus type 2 #Acute hypoxic respiratory failure, resolved Assessment and plan discussed with my attending physician Dr. Apolinar Kennedy (PGY-1)- Internal medicine resident Time Spent with Patient Time attestation: Total time spent providing and/or coordinating discharge services: Time spent: Greater than 30 minutes Exam Vital Signs Temp Pulse Resp BP Pulse Ox O2 Del Method O2 Flow Rate 97.7 F 99 20 124/66 92 L Nasal Cannula 2 10/29/24 11:51 10/29/24 12:03 10/29/24 11:51 10/29/24 11:51 10/29/24 11:51 10/29/24 11:51 10/29/24 11:51 Narrative Exam GENERAL: A&Ox3 elderly female, Awake and cooperative, Not in acute distress NEURO: no focal neurological deficits noted, baseline mentation HEENT: Atraumatic, Normocephalic. mucous membranes moist. Eyes open, symmetrical, & clear HEART: Normal Heart Sounds LUNGS: Clear to auscultation with no wheezing or crackles. ABDOMEN: soft, non-distended, non-tender, bowel sounds heard, no guarding or rebound tenderness SKIN: No Rash, venous insufficiency noted bilaterally on LE, some bruising on left foot from fall EXTREMITIES: No edema, tenderness, able to move all 4 extremities, pedal pulses palpated Discharge Plan Plan Patient Disposition: Home w/HOME HEALTH Care Plan Goals: -Follow up outpatient with your primary care within 2 weeks -Follow up with a varsity baseball coach within 2 weeks after discharge -You have been prescribed antibiotics for additional 3 days, please completed the course -Promptly return to the ED if your symptoms return or worsen Prescriptions/Referrals Prescriptions/Med Rec: New levofloxacin 500 mg tablet 500 mg PO QDAY Qty: 3 0RF Continued Eliquis 5 mg Tablet 5 mg PO BID glipizide 5 mg tablet extended release 24hr 5 mg PO DAILY metoprolol tartrate 25 mg tablet 25 mg PO BID Patient Comments: AYAZ GAITAN AL Vivien A rosuvastatin 10 mg tablet 10 mg PO QDAY Patient Comments: TAKE 1 TABLET BY MOUTH EVERY DAY Discontinued atorvastatin 10 mg Tablet 10 mg PO QPM hydrocodone-acetaminophen 5-325 mg tablet 1 tab PO Q6H MDD 4 tabs PRN (Reason: pain) Qty: 10 0RF Referrals: Juan Banegas MD [Primary Care Provider] - Patient/Caregiver Discharge Instructions Print Language: [place]an Stand Alone Forms: [employer] Award Info., Patient Portal Info Letter Discharge Order Discharge Orders: Discharge (Routine); Ordered 10/29/24 Ordered By: Marshall Kennedy Quality Discharge Quality Measures VTE prophylaxis Attestestation MD Attestation I attest that I was physically present for the evaluation, physical examination, lab and imaging review of the patient with the residents. I discussed the case with the residents and agree with the findings and plans of care as documented above. Megha Jiang MD
[2024-10-29] MEDS: ATORVASTATIN CALCIUM 20 MG TABLET PO (20:09)
--- NOTE | 2024-10-29 22:43 | PC.NURSE ---
Addendum entered by Jeevan Weaver RN 10/29/24 23:07: 600 ml of urine removed via in-and-out catheter. LISA Hu assisted. Addendum entered by Jeevan Weaver RN 10/29/24 22:47: Dr. Mcgarry said to do an in and out to remove the urine in the bladder. Original Note: Patient has not voided ever since FC was removed at 1600. LISA Chew did a bladded scan and 742ml of urine in bladder. LISA Chew will notify hospitalists.
[2024-10-30] VITALS (12 sets, daily range): BP systolic 114–139; BP diastolic 63–80; PULSE 85–101; RESP 18–24; TEMP 36.2–36.7; O2SAT 93–96; BMI 33.4
[2024-10-30 06:21] LABS: Basophils # (Auto) 0.1 Thou/mm3 (0.0-0.2); Basophils % (Auto) 1 % (0-2.5); Eosinophils # (Auto) 0.3 Thou/mm3 (0.0-0.5); Eosinophils % (Auto) 3 % (0-10); Hematocrit 38.6 % (36.0-46.0); Hemoglobin 13.3 g/dL (12.0-16.0); Immature Granulocytes % (Auto) 2 % (0-0); Lymphocytes # (Auto) 1.7 Thou/mm3 (1.0-4.8); Lymphocytes % (Auto) 17 % (10-50); Mean Corpuscular HGB Conc 34.5 g/dl (31.0-37.0); Mean Corpuscular Hemoglobin 30.6 pg (25.0-35.0); Mean Corpuscular Volume 89 fL (80-100); Monocytes # (Auto) 1.4 Thou/mm3 (0.0-0.8); Monocytes % (Auto) 14 % (0-12); Neutrophils # (Auto) 6.5 Thou/mm3 (1.8-7.7); Neutrophils % (Auto) 64 % (37-80); Nucleated Red Blood Cell % 0 /100 WBC (0); Platelet Count 306 Thou/mm3 (140-440); RDW Standard Deviation 45.8 fL (36.4-46.3); Red Blood Count 4.35 Miln/mm3 (4.00-5.20); White Blood Count 10.2 Thou/mm3 (3.6-11.0)
[2024-10-30 06:39] LABS: Alanine Aminotransferase 68 U/L (10-49); Albumin, Serum 3.9 gm/dL (3.4-4.8); Albumin/Globulin Ratio 1.5 (1.2-2.2); Alkaline Phosphatase 169 U/L (46-116); Anion Gap 14 (7-16); BUN/Creatinine Ratio 20 Ratio (12-20); Bilirubin,Total 0.8 mg/dL (0.3-1.2); Blood Urea Nitrogen 14 mg/dL (9-23); Calcium (Corrected) 9.1 mg/dL (8.5-10.1); Carbon Dioxide 26.2 mMol/L (20.0-31.0); Chloride 97 mMol/L (98-107); Creatinine (Component) 0.7 mg/dL (0.6-1.3); Estimated Creatinine Clearance 56.4 mL/min (>60); Globulin 2.6 gm/dL (2.3-3.5); Glucose 188 mg/dL (74-106); Osmolality,Calculated 279 (275-295); Potassium 3.9 mMol/L (3.4-5.1); Sodium 137 mMol/L (136-145); Total Protein 6.5 gm/dL (5.7-8.2); eGFR > 60 See Note
[2024-10-30] MEDS: INSULIN LISPRO (AdmeLOG) 1 UNIT/0.01 ML UNIT SC ×3 (07:35→16:55)
[2024-10-30] MEDS: PANTOPRAZOLE 40 MG TABLET PO (08:20)
[2024-10-30] MEDS: FUROSEMIDE INJ 10 MG/ML 4ML VIAL 40 MG IVP (08:20)
[2024-10-30] MEDS: SENNA/DOCUSATE SOD 1 TAB TABLET PO (08:20)
[2024-10-30] MEDS: APIXABAN 2.5 MG TABLET 5 MG PO (08:20)
[2024-10-30] MEDS: POTASSIUM CHLORIDE 20 mEq TABCR PO (08:20)
[2024-10-30] MEDS: INSULIN GLARGINE (Lantus) 5 UNIT/0.05 ML (PER 5 UNITS) SC (08:21)
[2024-10-30] MEDS: LEVOFLOXACIN/D5W 500 MG IVPB 500 MG/100 ML BAG 100 MG IV (08:22)
--- NOTE | 2024-10-30 08:53 | PC.SS ---
Addendum entered by May [place]cho[place] [facility]30[place]24 16:35: SS update: [facility] staff confirm the DME in route to the hospital. ETA within 2hrs. Patient is aware. RN Tommie and resident Dr. Kennedy updated. Addendum entered by May Ocho[place] [facility] 10/30/24 14:32: SS update: spoke with [facility] staff. They confirm they have received the 02 order and are working on delivery of DME, no anticipated ETA as of yet. Notified them the patient remains in the hospital, provided them hospital address and patient's room number for delivery of DME. Addendum entered by May Ochoa [facility] 10/30/24 12:03: SS update: contacted [facility] [phone] and spoke with staff, who confirmed that the DME 02 order was redirected to [facility]. They informed that authorization to be provided to them today. Addendum entered by May Ochoa [facility] 10/30/24 11:57: SS follow up: updated the patient and family at bedside to make aware of current DME order status. Addendum entered by May Ochoa [employer] 10/30/24 11:37: SS follow up: left a voicemail for [employer] at [phone] to follow up on 02 order. Addendum entered by May Ochoa [facility] 10/30/24 11:34: SS update: received a notification from [employer] via [employer] informing that patient's insurance carrier has re-directed the 02 order to [facility]. Addendum entered by May Ochoa [facility] 10/30/24 11:21: SS follow up: contacted [facility] [employer] [facility] [employer] and their staff informs the order continues pending insurance authorization, per staff response time from patient's insurance carrier has been 2-3 days. Addendum entered by May Ochoa [facility] 10/30/24 10:20: Bedside RN updated on DME status. Original Note: SS follow up: Enma from [employer] [facility] [facility] informs they are pending insurance authorization for 02 delivery. SS provided Enma with contact number for further follow up.
[2024-10-30 09:42] LABS: INR 1.1 (0.9-1.3); Prothrombin Time 12.3 Seconds (9.0-12.2)
--- NOTE | 2024-10-30 17:05 | ESDS_ITS ---
<Statement entered by Alice Smith MD - 11/08/24 15:03> I reviewed above note and agree with findings and plans. I have also personally examined the patient with medicine team and went over assessment and plan with medical team including internet researcher and resident physician. Planned Discharge Date 10/30/24 DS: Providers Provider Date of admission: 10/25/24 17:37 Primary care physician: Juan Banegas MD Admitting Provider: Cindy Hernandez MD Attending Provider on Admission: Alice Smith MD Consults: 10/28/24 10:09 Referral Physical Therapy Routine Comment: Physician Instructions: Attending Provider on DC: Marshall Kennedy MD Discharging Provider: Marshall Kennedy MD DS: Diagnosis Problem List Completed Was Problem List Reviewed/Reconciled?: Yes Hospital Course Hospital Course Hospital course: Ms. Mccartney is a 83-year-old female with past medical history of hypertension, hyperlipidemia, A-fib on Eliquis, liz-xyvkzgu-omwjteetc type 2 diabetes and recurrent episodes of pancreatitis with pseudocyst presented to the ED complaining of Nausea, vomiting and abdominal pain. Patient was admitted to intensive care unit for management of acute pancreatitis. Patient's lipase on presentation was found to be more than 3500, gallbladder ultrasound showed pancreatic head is prominent, CT abdomen pelvis showed no concerning mass, though did show acute hepatitis and hepatomegaly. Patient was given 2.5 L of fluid, was started on oral diet and was downgraded to med/tele for continued care, patient was also found to have underlying E. coli bacteremia for which patient received IV antibiotics, home medications were resumed as deemed appropriate for the hospitalization course, eventually patient was found to have acute hypoxic respiratory failure, patient underwent echocardiogram which showed EF 55 to 60%, patient was given Lasix for the hospitalization. Further plan is to discharge patient home with home health, patient to follow-up with primary care physician in 1 to 2 weeks, patient to obtain referral for medicaid specialist and follow-up outpatient. Patient to continue antibiotics for bacteremia and continue all other home medications. Patient is stable for discharge, responded well to hospital treatment. Pt's hospitalization was delayed by 1 day because her home oxygen was not delivered in time. Discharge Recommendations -Follow up outpatient with your primary care within 2 weeks -Follow up with a medicaid specialist within 2 weeks after discharge -You have been prescribed antibiotics for additional 2 days, please completed the course -Promptly return to the ED if your symptoms return or worsen Hospitalization Diagnosis #E. Coli bacteremia #E.Coli UTI #Lactic acidosis- resolved #Acute pancreatitis, resolved #History of atrial fibrillation, paroxysmal #Primary hypertension #Hyperlipidemia #Dsi-jymdmmo-qkeqkleap diabetes mellitus type 2 #Acute hypoxic respiratory failure, resolved Assessment and plan discussed with my attending physician Dr. Luis Kennedy (PGY-1)- Internal medicine resident Time Spent with Patient Time attestation: Total time spent providing and/or coordinating discharge services: Time spent: Greater than 30 minutes Home Health Home Health Referral Orders: 10/29/24 18:10 Home Health Referral Routine Reason For Exam: Generalized weakness Home-Bound The patient must either because of illness or injury, need the aid of supportive devices such as crutches, canes, wheelchairs, and walkers; the use of special trans portation; or the assistance of another person in order to leave their place of residence; OR have a condition such that leaving his or her home is medically contraindicated. In addition, the patient also meets the following criteria: patient is normally unable to leave the home and leaving home requires considerable taxing effort. Addendum to Home Health Certification Practitioner's Certification: I certify that the patient has been under my care in the hospital and the care of attending physician (see below). We had a lbyr-eu-qfbg encounter on (see date below). My clinical findings indicate that the patient is home bound per the above criteria and the Home Health Services noted in these orders are medically necessary. The primary reason for the scxn-rm-omeh encounter is related to the fact that the patient requires home health services. Date Certifying Wdgn-tf-Puvd Physician Encounter: 10/25/24 Physician's Name who will Assume Oversight for Services: Juan Banegas Physician's Phone No.who will Assume Oversight for Service: SPECIAL EDUCATION PARAEDUCATOR - Community Resources: No PT to Evaluate: Yes PT to evaluate and provide a treatmnet plan to increase patient's mobility and strength. Wound Care: No IV Therapy: No RN Safety Evaluation: Yes RN to evaluate and create a plan of care that will produce positive outcomes. Palliative Treatment: No Palliative treatment and evaluate the need for hospice. Home Health Aide - Personal Care: No Home Health Aide to assist with any ADL's. Exam Vital Signs Temp Pulse Resp BP Pulse Ox O2 Del Method O2 Flow Rate 97.2 F 97 20 120/71 94 L Nasal Cannula 2 10/30/24 15:52 10/30/24 16:00 10/30/24 15:52 10/30/24 15:52 10/30/24 15:52 10/30/24 15:52 10/30/24 15:52 Narrative Exam GENERAL: A&Ox3 elderly female, Awake and cooperative, Not in acute distress NEURO: no focal neurological deficits noted, baseline mentation HEENT: Atraumatic, Normocephalic. mucous membranes moist. Eyes open, symmetrical, & clear HEART: Normal Heart Sounds LUNGS: Clear to auscultation with no wheezing or crackles. ABDOMEN: soft, non-distended, non-tender, bowel sounds heard, no guarding or rebound tenderness SKIN: No Rash, venous insufficiency noted bilaterally on LE, some bruising on left foot from fall EXTREMITIES: No edema, tenderness, able to move all 4 extremities, pedal pulses palpated Discharge Plan Plan Patient Disposition: Home w/HOME HEALTH Patient condition on transfer: Stable Care Plan Goals: -Follow up outpatient with your primary care within 2 weeks -Follow up with a medicaid specialist within 2 weeks after discharge -You have been prescribed antibiotics for additional 2 days, please completed the course -Promptly return to the ED if your symptoms return or worsen Prescriptions/Referrals Prescriptions/Med Rec: New levofloxacin 500 mg tablet 500 mg PO QDAY Qty: 3 0RF Continued Eliquis 5 mg Tablet 5 mg PO BID glipizide 5 mg tablet extended release 24hr 5 mg PO DAILY metoprolol tartrate 25 mg tablet 25 mg PO BID Patient Comments: AYAZ STOCKTONA DOS VECES AL D A rosuvastatin 10 mg tablet 10 mg PO QDAY Patient Comments: TAKE 1 TABLET BY MOUTH EVERY DAY Discontinued atorvastatin 10 mg Tablet 10 mg PO QPM hydrocodone-acetaminophen 5-325 mg tablet 1 tab PO Q6H MDD 4 tabs PRN (Reason: pain) Qty: 10 0RF Referrals: Juan Banegas MD [Primary Care Provider] - Patient/Caregiver Discharge Instructions Print Language: Slovak Stand Alone Forms: [facility]lee Award Info., Patient Portal Info Letter Discharge Order Discharge Orders: Discharge (Routine); Ordered 10/30/24 Ordered By: Marshall Kennedy Quality Discharge Quality Measures VTE prophylaxis
--- NOTE | 2024-11-01 12:14 | PC.CC ---
Pt is booked with [facility], SOC is 11/03
== END 2024-10-30 18:20 | disposition home health service (06) | DRG 282 ==
LOC: SERX 07:45 → SERHOLD 18:32 → S2SX 20:33 → S3NX 10-26 17:10
PROVIDERS: Nurse Practitioner Family; Student in an Organized Health Care Education/Training Program; Admitting Provider Internal Medicine; Emergency Provider Emergency Medicine; PCP Family Medicine; Visit Provider Internal Medicine
DX: K85.90 Acute pancreatitis without necrosis or infection, unspecified (principal); R16.0 Hepatomegaly, not elsewhere classified; I48.0 Paroxysmal atrial fibrillation; I10 Essential (primary) hypertension; E78.5 Hyperlipidemia, unspecified; Z79.84 Long term (current) use of oral hypoglycemic drugs; E87.20 Acidosis, unspecified; B17.9 Acute viral hepatitis, unspecified; E11.9 Type 2 diabetes mellitus without complications; N39.0 Urinary tract infection, site not specified; B96.20 Unspecified Escherichia coli [E. coli] as the cause of diseases classified elsewhere; K86.3 Pseudocyst of pancreas; Z90.49 Acquired absence of other specified parts of digestive tract; Z79.01 Long term (current) use of anticoagulants; J96.01 Acute respiratory failure with hypoxia; S36.119A Unspecified injury of liver, initial encounter; Z66 Do not resuscitate; Z96.642 Presence of left artificial hip joint
CPT/HCPCS: 36415; 71045; 74176; 80053; 80061; 80074; 80307; 80329; 81001; 82140; 82803; 83605; 83690; 83735; 84100; 85025; 85610; 87040; 87077; 87081; 87086; 87186; 93225; 93306; 96361; 96365; 96366; 96367; 96372; 96375; 97162; 99285; J1644; J1815; J1938; J1956; J2470; J2543; J3370; J7030; J7120; Q0162; S8037; 74181; A9270; G0480